=== PATIENT | female | born 1940 | race Caucasian/White ===

== ENCOUNTER 2020-04-22 18:04 | Observation (INO) | payer MEDICARE, SELFPAY ==
--- NOTE | 2020-04-22 | CT_ITS ---
EXAMINATION: CT ABDOMEN AND PELVIS WITHOUT CONTRAST CLINICAL INFORMATION: Back pain. COMPARISON: CT lumbar spine 02/01/2011, report only. TECHNIQUE: Multidetector volumetric imaging was performed from the superior aspect of the liver through the pubic symphysis. Sagittal and coronal reformatted images were obtained on the technologist's workstation. This CT examination was performed using dose optimization techniques as appropriate, variously including the following: *Automated exposure control *Adjustment of mA and/or kV according to patient size (this includes techniques or standardized protocols for targeted exams where dose is matched to indication/reason for exam; i.e. extremities or head) *Use of iterative reconstruction technique DLP: 856 mGy-cm FINDINGS: LUNG BASES: There is a suggestion of emphysematous changes at the lung bases. No lung masses, pleural effusions or infiltrates are seen. A right breast prosthesis is present. LIVER, GALLBLADDER, AND BILIARY TREE: Multiple liver masses are seen throughout the liver ranging in size from a few centimeters up to 6 cm (series 4 image 137). No bile duct dilatation is seen. The gallbladder is contracted but otherwise unremarkable with no evidence of radiopaque gallstones, gallbladder wall thickening, or obvious pericholecystic inflammatory changes. PANCREAS: Unremarkable. SPLEEN: Unremarkable. ADRENAL GLANDS: There is a 1.7 x 1.2 x 1.6 cm mass involving the left adrenal gland. The right adrenal gland appears mildly symmetrically thickened. KIDNEYS AND URETERS: The kidneys are normal in size, shape, and attenuation. A small 0.9 cm right lower pole cyst is present with a 7 mm posterior left mid cortical cyst present. No solid renal masses are seen. No hydronephrosis, hydroureter, or calculi seen. No perinephric stranding. BLADDER: Unremarkable. GASTROINTESTINAL TRACT: A small posterior gastric diverticulum is present with layering contrast measuring 2.5 cm. Extensive colonic diverticular changes are present without diverticulitis. The small and large bowel are otherwise unremarkable. The appendix is unremarkable. ABDOMINAL WALL: No significant hernia is appreciated. There is a small periumbilical hernia containing only fat. LYMPH NODES: No retroperitoneal lymphadenopathy. VASCULAR: Atherosclerotic changes are present but no aneurysm is seen. PELVIC VISCERA: An anteverted uterus is present. An abnormal pelvic mass or free fluid is not seen. OSSEOUS STRUCTURES: Generalized osteopenia is present with marked degenerative changes throughout the spine. There are multiple sclerotic lesions seen throughout the spine which are new since the report of 2010. A lytic lesion is present in S1. No pathologic fractures are seen. Sclerotic foci are noted in the ribs as well as in the right iliac bone and right ischium. All of these findings are suspicious for osseous metastatic disease. IMPRESSION: 1. Multiple liver masses worrisome for metastatic disease. 2. Left adrenal mass which could represent metastatic disease. 3. Multiple bone lesions highly suspicious for metastatic disease. This critical result was discussed with Dr. Paul Priest at 7:58 PM on the day the exam and it was ascertained that the content and urgency of the report was understood at the time of direct communication.
[2020-04-22 18:32] VITALS: BP 123/68; BP 130/90; PULSE 90; PULSE 95; RESP 20; TEMP 36.5; O2SAT 98; BMI 30.5
[2020-04-22] MEDS: oxyCODONE HCl Immed Release 5 MG TABLET PO (19:25)
[2020-04-22] MEDS: Ketorolac Tromethamine 30 MG/ML VIAL IM (19:30)
[2020-04-22 19:31] LABS: MANUAL DIFF FLAG NO
[2020-04-22] MEDS: Lidocaine 4 % Patch ADH..PATCH 1 PATCH TRANSDERMA (19:31)
[2020-04-22 19:36] LABS: Basophils Percent Auto 0.4 % (0-2); Eosinophils Absolute Auto 0.2 X10*3/uL (0.0-0.4); Eosinophils Percent Auto 2.9 % (0-4); Hematocrit 38.5 % (37-47); Hemoglobin 12.6 g/dl (12.0-16.0); Imm Gran Abs Auto 0.06 X10*3/uL (0.00-0.03); Imm Gran Pct Auto 0.7 % (0.0-0.4); Lymphocytes Absolute Auto 1.5 X10*3/uL (1.2-4.9); Lymphocytes Percent Auto 17.9 % (20-40); Mean Corpuscular HGB Conc 32.7 g/dl (31.0-35.0); Mean Corpuscular Hemoglobin 28.3 pg (27.0-33.0); Mean Corpuscular Volume 86.5 fL (80-98); Mean Platelet Volume 10.1 fL (9.4-12.3); Monocytes Absolute Auto 0.8 X10*3/uL (0.1-1.2); Neutrophils Absolute Auto 5.7 X10*3/uL (2.0-8.3); Neutrophils Percent Auto 68.1 % (45-73); Platelet Count 259 X10*3/uL (160-400); Red Blood Count 4.45 X10*6/uL (4.20-5.50); Red Cell Distribution Width 13.6 % (11.0-16.0); White Blood Count 8.4 X10*3/uL (4.8-10.8)
[2020-04-22 19:50] LABS: Glucose Urine UA NEG (NEG); Leukocyte Esterase Urine 1+ (NEG); Nitrite Urine POS (NEG); Urine Blood NEG (NEG); Urine Ketones NEG (NEG); Urine Protein NEG (NEG-TRACE)
[2020-04-22 19:52] LABS: Appearance Urine HAZY; Color Urine YELLOW
[2020-04-22 19:57] LABS: Bacteria Urine 2+ /LPF; RBC Urine 0 /HPF (0); Squamous Epithelial Cell Urine 1+ /LPF
[2020-04-22 19:58] LABS: Alanine Aminotransferase 19 U/L (0-31); Albumin Level 3.8 g/dL (3.5-5.0); Alkaline Phosphatase 137 U/L (39-117); Anion Gap 12 (12-20); Aspartate Amino Transferase 44 U/L (5-31); Bilirubin Direct 0.2 mg/dL (0.0-0.5); Bilirubin Total 0.5 mg/dL (0.0-1.0); Blood Urea Nitrogen 31 mg/dL (9-16); Calcium 9.3 mg/dL (8.4-10.2); Carbon Dioxide 27 mmol/L (22-29); Chloride 104 mmol/L (96-108); Creatinine Clr Calc Pharmacy 48.5; Estimated Glomerular Filt Rate 48; Glucose Random 95 mg/dL (60-115); Potassium 4.2 mmol/l (3.3-5.1); Sodium 139 mmol/L (135-145); Total Protein 7.1 g/dL (6.5-8.0)
[2020-04-22 20:53] VITALS: BP 144/65; PULSE 88; RESP 17; O2SAT 98
--- NOTE | 2020-04-22 20:59 | ED.BACK ---
HPI - Back Pain/Injury General Chief Complaint: Back Pain/Injury <Paul Priest NP - Last Filed: 04/22/20 21:34> Stated Complaint: lower back pain <Paul Priest NP - Last Filed: 04/22/20 21:34> Time Seen by Provider: 04/22/20 18:54 <Paul Priest NP - Last Filed: 04/22/20 21:34> Source: EMS <Paul Priest NP - Last Filed: 04/22/20 21:34> Mode of arrival: EMS <Paul Priest NP - Last Filed: 04/22/20 21:34> Limitations: no limitations <Paul Priest NP - Last Filed: 04/22/20 21:34> History of Present Illness HPI Narrative: this is a very pleasant 79-year-old female who is relatively independent comes from home via EMS she has a history of hypothyroidism, chronic back pain in the setting of spinal stenosis, recurrent diagnosis of breast cancer she subsequently underwent bilateral mastectomies and reconstructive surgery bilateral breast and she tells me that due to the spinal stenosis she has been dealing with on and off episodes of back pain for 30+ years for which has been well managed with intermittent course of muscle relaxants however for the past several days she has had back pain that is been worse and not improving with OTC therapy. States she is finding it for her to do any activities at home and today pain is much worse and cannot move. She denies any GI symptoms. No recent fall or injury. States little things as sneezing can sometimes throw her back off . <Paul Priest NP - Last Filed: 04/22/20 21:34> Pertinent past history: prior back pain <Paul Priest NP - Last Filed: 04/22/20 21:34> Severity: moderate <Paul Priest NP - Last Filed: 04/22/20 21:34> Similar Symptoms Previously: Yes <Paul Priest NP - Last Filed: 04/22/20 21:34> Associated symptoms: denies other symptoms <Paul Priest NP - Last Filed: 04/22/20 21:34> Related Data Home Medications: Home Medications Medication Instructions Recorded Confirmed cyclobenzaprine 1 tab PO BEDTIME PRN 04/22/20 04/22/20 levothyroxine 1 tab PO QAM 04/22/20 04/22/20 oxycodone 1 tab PO DAILY PRN 04/22/20 04/22/20 <Paul Priest NP - Last Filed: 04/22/20 21:34> Allergies/Adverse Reactions: Allergies Allergy/AdvReac Type Severity Reaction Status Date / Time codeine [CODEINE] Allergy Intermediate VOMITING Verified 04/22/20 19:18 Benadryl Allergy Unknown Unknown Uncoded 04/22/20 19:05 codeine Allergy Unknown vomiting Uncoded 10/10/18 00:00 Codeine Sulfate AdvReac Mild Vomiting Uncoded 04/22/20 19:07 <Paul Priest NP - Last Filed: 04/22/20 21:34> Review of Systems Review of Systems: Constitutional: No Weight loss, No Fever, No Chills, No Night Sweats, No Fatigue, No Malaise ENT/Mouth: No Hearing loss, No Ear Pain, No Nasal Congestion, No Sinus Pain, No Hoarseness, No sore throat, No Rhinorrhea, No Swallowing Difficulty Eyes: No Eye Pain, No Swelling, No Redness, No Foreign Body, No Discharge, No Vision Changes Cardiovascular: No Chest Pain, No SOB, No Dyspnea on Exertion, No Orthopnea, No Edema, No Palpitations Respiratory: No Cough, No Sputum, No Wheezing, No Smoke Exposure, No Dyspnea Gastrointestinal: No Nausea, No Vomiting, No Diarrhea, No Constipation, No abdominal Pain, No Hematochezia, No Melena Genitourinary: no irregular bleeding, No Dysuria, No Urinary Frequency, No Hematuria, No Urinary Incontinence, No Urgency, No Flank Pain, No Urinary Flow Changes, No Hesitancy Musculoskeletal: + low back pain No joint pain, No Myalgias, No Joint Swelling Skin: No Skin Lesions, No rash Neuro: No Weakness, No Numbness, No Paresthesias, No Loss of Consciousness, No Dizziness, No Headache Psych: No Anxiety/Panic, No Depression, No SI/HI/AH/VH, No Social Issues, Heme/Lymph: No Bruising, No Bleeding,No Lymphadenopathy Endocrine: No Polyuria, No Polydipsia, No Temperature Intolerance <Paul Priest NP - Last Filed: 04/22/20 21:34> Yes all other systems are reviewed and are negative <Paul Priest NP - Last Filed: 04/22/20 21:34> [facility] Past Medical History Attestation statement: The following information was validated with the patient. <Paul Priest NP - Last Filed: 04/22/20 21:34> Medical History: Medical History (Updated 04/22/20 @ 21:34 by Paul Priest NP) Breast cancer Hx of radiation therapy Sciatica <Paul Priest NP - Last Filed: 04/22/20 21:34> Surgical History: Surgical History (Updated 04/22/20 @ 18:44 by Cathi Wilson) H/O knee surgery H/O left mastectomy History of bilateral mastectomy History of hip surgery <Paul Priest NP - Last Filed: 04/22/20 21:34> Social History Social History: Social History Smoking Status: Never smoker Use of substances other than those prescribed or required for medical reasons: No Advance Directives: No Advance Directives Information Provided: No <Paul Priest NP - Last Filed: 04/22/20 21:34> Physical Exam Vital Signs and I&O and Narrative: Vital Signs and I&O: Vital Signs Temp 97.7 F 04/22/20 18:32 Pulse 88 04/22/20 20:53 Resp 17 04/22/20 20:53 BP 144/65 H 04/22/20 20:53 Pulse Ox 98 04/22/20 20:53 Intake & Output 04/22/20 04/22/20 04/23/20 06:59 18:59 06:59 Weight 88.451 kg Body Mass Index 30.5 <Paul Priest NP - Last Filed: 04/22/20 21:34> Vital Signs and I&O: Vital Signs Temp 97.7 F 04/22/20 18:32 Pulse 88 04/22/20 20:53 Resp 17 04/22/20 20:53 BP 144/65 H 04/22/20 20:53 Pulse Ox 98 04/22/20 20:53 Intake & Output 04/22/20 04/22/20 04/23/20 06:59 18:59 06:59 Weight 88.451 kg Body Mass Index 30.5 <Aquilino Osman DO - Last Filed: 10/08/20 23:04> Const: Other: Appears stated age <[facility] Priest, [facility] Last Filed: 04/22/20 21:34> General: cooperative and healthy appearing; No intoxicated appearing <[facility] Priest, [facility] Last Filed: 04/22/20 21:34> Nutritional Appearance: average body habitus <[facility] Priest, [facility] Last Filed: 04/22/20 21:34> Orientation/consciousness: patient oriented x3 [facility] Last Filed: 04/22/20 21:34> HENMT: Head: Yes normal to inspection <[facility] Priest, [facility] Last Filed: 04/22/20 21:34> Ears: hearing grossly normal bilaterally <[facility] Last Filed: 04/22/20 21:34> Eyes: General: appearance normal, both eyes and all related structures <[facility] Priest, [facility] Last Filed: 04/22/20 21:34> Visual John: normal visual john by confrontation <[facility] Zayda [facility] Last Filed: 04/22/20 21:34> Neck: Neck: Yes normal visual inspection, No positive Brudzinski's sign, No positive Kernig's sign and No tender <[facility] Zayda [facility] Last Filed: 04/22/20 21:34> Thyroid: Thyroid normal <[facility] Last Filed: 04/22/20 21:34> Chest: Chest palpation & inspection: normal inspection of the chest <[facility] Zayda [facility] Last Filed: 04/22/20 21:34> Resp: Effort & Inspection: normal respiratory effort <[facility] Zayda [facility] Last Filed: 04/22/20 21:34> Cardio: Jugular venous distension: no JVD <[facility] Zayda [facility] Last Filed: 04/22/20 21:34> GI: Inspection: Yes normal to inspection <[facility] Zayda [facility] Last Filed: 04/22/20 21:34> Percussion: Yes normal to percussion <[facility] Zayda [facility] Last Filed: 04/22/20 21:34> Auscultation: normal bowel sounds <[facility] Zayda [facility] Last Filed: 04/22/20 21:34> Skin: General skin exam: no rashes or lesions noted <Paullydia Priest NP - Last Filed: 04/22/20 21:34> Neuro: General: patient oriented x3 and Unable to assess gait <Paul Priest NP - Last Filed: 04/22/20 21:34> Gait exam (Neuro): Unable to assess gait <Paul Priest NP - Last Filed: 04/22/20 21:34> Extrem: Other: Negative Homans. Unable to examine for leg lift due to pain. <Paul Priest NP - Last Filed: 04/22/20 21:34> General: Yes normal to inspection <Paul Priest NP - Last Filed: 04/22/20 21:34> Course Course Course Narrative: provided moderate relief after oxycodone, IM Toradol and lidocaine patch. However still having significant pain with movement and unable to ambulate. Labs overall stable no leukocytosis UA incidental nitrate but she is asymptomatic at this time will defer treatment and pending culture. CT of the abdomen pelvis findings quite concerning for metastatic disease. She does have history of breast CA and her mother did have history of colon CA. She is resting comfortably but however with movement pain is unbearable for her. Given these findings case discussed with hospitalist for further management. <Paul Priest NP - Last Filed: 04/22/20 21:34> MDM - Back Pain/Injury Differential Diagnosis Differential diagnosis: Likely lumbar radiculopathy ( CA, fracture less likely), sciatica and strain of lumbar region; Unlikely renal colic, pyelonephritis, thoracic back pain, AAA and discitis <Paul Priest NP - Last Filed: 04/22/20 21:34> Medical Records Attestation: I reviewed the patient's medical records. <Paul Priest NP - Last Filed: 04/22/20 21:34> Lab Data Result diagrams: : 04/22/20 19:22 04/22/20 19:21 <Paul Priest NP - Last Filed: 04/22/20 21:34> Labs: Lab Results 04/22/20 04/22/20 04/22/20 Range/Units 19:21 19:22 19:44 WBC 8.4 (4.8-10.8) X10*3/uL RBC 4.45 (4.20-5.50) X10*6/uL Hgb 12.6 (12.0-16.0) g/dl Hct 38.5 (37-47) % MCV 86.5 (80-98) fL MCH 28.3 (27.0-33.0) pg MCHC 32.7 (31.0-35.0) g/dl RDW 13.6 (11.0-16.0) % Plt Count 259 (160-400) X10*3/uL MPV 10.1 (9.4-12.3) fL Immature Gran % (Auto) 0.7 H (0.0-0.4) % Neut % (Auto) 68.1 (45-73) % Lymph % (Auto) 17.9 L (20-40) % [place] % (Auto) 10.0 (2-11) % Eos % (Auto) 2.9 (0-4) % Baso % (Auto) 0.4 (0-2) % Lymph # (Auto) 1.5 (1.2-4.9) X10*3/uL [place] # (Auto) 0.8 (0.1-1.2) X10*3/uL Eos # (Auto) 0.2 (0.0-0.4) X10*3/uL Baso # (Auto) 0.0 (0.0-0.2) X10*3/uL Abs Immat Gran (auto) 0.06 H (0.00-0.03) X10*3/uL Absolute Neuts (auto) 5.7 (2.0-8.3) X10*3/uL Absolute Nucleated RBC 0.000 (0.0-0.012) X10*3/uL Nucleated RBC % (auto) 0.0 (0.0-0.2) /100WBC Sodium 139 (135-145) mmol/L Potassium 4.2 (3.3-5.1) mmol/l Chloride 104 (96-108) mmol/L Carbon Dioxide 27 (22-29) mmol/L Anion Gap 12 (12-20) BUN 31 H (9-16) mg/dL Creatinine 1.11 (0.5-1.4) mg/dL Estim Creat Clear Calc 48.5 Estimated GFR 48 Random Glucose 95 (60-115) mg/dL Calcium 9.3 (8.4-10.2) mg/dL Total Bilirubin 0.5 (0.0-1.0) mg/dL Direct Bilirubin 0.2 (0.0-0.5) mg/dL AST 44 H (5-31) U/L ALT 19 (0-31) U/L Alkaline Phosphatase 137 H (39-117) U/L Total Protein 7.1 (6.5-8.0) g/dL Albumin 3.8 (3.5-5.0) g/dL Urine Color YELLOW Urine Appearance HAZY Urine pH 6.0 (5.0-8.0) Ur Specific [place] 1.010 (1.005-1.025) Urine Protein NEG (NEG-TRACE) MG/DL Urine Glucose (UA) NEG (NEG) MG/DL Urine Ketones NEG (NEG) MG/DL Urine Blood NEG (NEG) Urine Nitrite POS H (NEG) Ur Leukocyte Esterase 1+ H (NEG) Urine RBC 0 (0) /HPF Urine WBC 5-9 H (0-4) /HPF Ur Squamous Epith Cells 1+ /LPF Urine Bacteria 2+ /LPF <Paul Priest [employer] - Last Filed: 04/22/20 21:34> Lab Results 04/22/20 04/22/20 04/22/20 Range/Units 19:21 19:22 19:44 WBC 8.4 (4.8-10.8) X10*3/uL RBC 4.45 (4.20-5.50) X10*6/uL Hgb 12.6 (12.0-16.0) g/dl Hct 38.5 (37-47) % MCV 86.5 (80-98) fL MCH 28.3 (27.0-33.0) pg MCHC 32.7 (31.0-35.0) g/dl RDW 13.6 (11.0-16.0) % Plt Count 259 (160-400) X10*3/uL MPV 10.1 (9.4-12.3) fL Immature Gran % (Auto) 0.7 H (0.0-0.4) % Neut % (Auto) 68.1 (45-73) % Lymph % (Auto) 17.9 L (20-40) % [place] % (Auto) 10.0 (2-11) % Eos % (Auto) 2.9 (0-4) % Baso % (Auto) 0.4 (0-2) % Lymph # (Auto) 1.5 (1.2-4.9) X10*3/uL [place] # (Auto) 0.8 (0.1-1.2) X10*3/uL Eos # (Auto) 0.2 (0.0-0.4) X10*3/uL Baso # (Auto) 0.0 (0.0-0.2) X10*3/uL Abs Immat Gran (auto) 0.06 H (0.00-0.03) X10*3/uL Absolute Neuts (auto) 5.7 (2.0-8.3) X10*3/uL Absolute Nucleated RBC 0.000 (0.0-0.012) X10*3/uL Nucleated RBC % (auto) 0.0 (0.0-0.2) /100WBC Sodium 139 (135-145) mmol/L Potassium 4.2 (3.3-5.1) mmol/l Chloride 104 (96-108) mmol/L Carbon Dioxide 27 (22-29) mmol/L Anion Gap 12 (12-20) BUN 31 H (9-16) mg/dL Creatinine 1.11 (0.5-1.4) mg/dL Estim Creat Clear Calc 48.5 Estimated GFR 48 Random Glucose 95 (60-115) mg/dL Calcium 9.3 (8.4-10.2) mg/dL Total Bilirubin 0.5 (0.0-1.0) mg/dL Direct Bilirubin 0.2 (0.0-0.5) mg/dL AST 44 H (5-31) U/L ALT 19 (0-31) U/L Alkaline Phosphatase 137 H (39-117) U/L Total Protein 7.1 (6.5-8.0) g/dL Albumin 3.8 (3.5-5.0) g/dL Urine Color YELLOW Urine Appearance HAZY Urine pH 6.0 (5.0-8.0) Ur Specific [place] 1.010 (1.005-1.025) Urine Protein NEG (NEG-TRACE) MG/DL Urine Glucose (UA) NEG (NEG) MG/DL Urine Ketones NEG (NEG) MG/DL Urine Blood NEG (NEG) Urine Nitrite POS H (NEG) Ur Leukocyte Esterase 1+ H (NEG) Urine RBC 0 (0) /HPF Urine WBC 5-9 H (0-4) /HPF Ur Squamous Epith Cells 1+ /LPF Urine Bacteria 2+ /LPF <Aquilino Osman, DO - Last Filed: 04/22/20 23:04> Imaging Data CT scan - abdomen: Radiologist's impression: [address] [address] [address] Scan Report Signed Patient: Susie Nixon [facility]#: [id number] : [id number] Age/Sex: 79 / FADM Date: 04/22/20 Loc: HO.ED Attending Dr: Ordering Physician: Paul Priest NP Date of Service: 04/22/20 Procedure(s): CT abdomen pelvis wo con Accession Number(s): [id number] cc: Paul Priest NP~ EXAMINATION: CT ABDOMEN AND PELVIS WITHOUT CONTRAST CLINICAL INFORMATION: Back pain. COMPARISON: CT lumbar spine 02/01/2011, report only. TECHNIQUE: Multidetector volumetric imaging was performed from the superior aspect of the liver through the pubic symphysis. Sagittal and coronal reformatted images were obtained on the technologist's workstation. This CT examination was performed using dose optimization techniques as appropriate, variously including the following: *Automated exposure control *Adjustment of mA and/or kV according to patient size (this includes techniques or standardized protocols for targeted exams where dose is matched to indication/reason for exam; i.e. extremities or head) *Use of iterative reconstruction technique DLP: 856 mGy-cm FINDINGS: LUNG BASES: There is a suggestion of emphysematous changes at the lung bases. No lung masses, pleural effusions or infiltrates are seen. A right breast prosthesis is present. LIVER, GALLBLADDER, AND BILIARY TREE: Multiple liver masses are seen throughout the liver ranging in size from a few centimeters up to 6 cm (series 4 image 137). No bile duct dilatation is seen. The gallbladder is contracted but otherwise unremarkable with no evidence of radiopaque gallstones, gallbladder wall thickening, or obvious pericholecystic inflammatory changes. PANCREAS: Unremarkable. SPLEEN: Unremarkable. ADRENAL GLANDS: There is a 1.7 x 1.2 x 1.6 cm mass involving the left adrenal gland. The right adrenal gland appears mildly symmetrically thickened. KIDNEYS AND URETERS: The kidneys are normal in size, shape, and attenuation. A small 0.9 cm right lower pole cyst is present with a 7 mm posterior left mid cortical cyst present. No solid renal masses are seen. No hydronephrosis, hydroureter, or calculi seen. No perinephric stranding. BLADDER: Unremarkable. GASTROINTESTINAL TRACT: A small posterior gastric diverticulum is present with layering contrast measuring 2.5 cm. Extensive colonic diverticular changes are present without diverticulitis. The small and large bowel are otherwise unremarkable. The appendix is unremarkable. ABDOMINAL WALL: No significant hernia is appreciated. There is a small periumbilical hernia containing only fat. LYMPH NODES: No retroperitoneal lymphadenopathy. VASCULAR: Atherosclerotic changes are present but no aneurysm is seen. PELVIC VISCERA: An anteverted uterus is present. An abnormal pelvic mass or free fluid is not seen. OSSEOUS STRUCTURES: Generalized osteopenia is present with marked degenerative changes throughout the spine. There are multiple sclerotic lesions seen throughout the spine which are new since the report of 2010. A lytic lesion is present in S1. No pathologic fractures are seen. Sclerotic foci are noted in the ribs as well as in the right iliac bone and right ischium. All of these findings are suspicious for osseous metastatic disease. IMPRESSION: 1. Multiple liver masses worrisome for metastatic disease. 2. Left adrenal mass which could represent metastatic disease. 3. Multiple bone lesions highly suspicious for metastatic disease. This critical result was discussed with Dr. Paul Priest at 7:58 PM on the day the exam and it was ascertained that the content and urgency of the report was understood at the time of direct communication. Dictated By:CHAGO FREGOSO MD Signed By:<Electronically signed by CHAGO FREGOSO MD in OV>04/22/202050 DD/ 14 TD/TT: Manager Of Production: ERICA <Paul Priest NP - Last Filed: 04/22/20 21:34> Discharge Plan Discharge Clinical Impression: Intractable back pain, Abnormal CT scan, pelvis Metastatic disease Qualifiers: Area of secondary neoplastic involvement: unspecified site Qualified Code(s): C79.9 - Secondary malignant neoplasm of unspecified site <Paul Priest NP - Last Filed: 04/22/20 21:34> Patient Disposition: Admitted As Inpatient <Paul Priest NP - Last Filed: 04/22/20 21:34>
--- NOTE | 2020-04-22 23:55 | PM.IMHP ---
History of Present Illness Date of Service: 04/22/20 Chief Complaint: Leg pain 79 y/o female who presented from home due to leg pain. Patient reports that has hx of sciatica and has occasional pain from the lower back radiating to the leg but in the recent days has noted worsening pain in the leg to the point that it has been even difficult to ambulate when has this type of pain. On presentation to the ED patient was found to hemodynamically stable, unremarkable labs except for mild elevation of AST 44 and UTi which is asymptomatic. Patient has a Hx of breast cancer in the past s/p lumpectomy of the left, radiation therapy, bilateral mastectomy and breast implantation, has been on remission of the breast cancer for the past 4 years since 2016. Had a bone scan with her oncologist which was negative. CT abdomen was done per ED and patient was found to have multiple lesions in liver, a mass in the left adrenal gland and multiple lytic lesions in the spine, hip and rib which are all concerning for metastatic disease. Primary etiology unknown at present. Decision for admission given. Patient seen and evaluated at the bedside, laying down in bed in no acute distress. ROS as above otherwise negative. No evidence of any neurologic deficit on examination, patient denies any pain at present. Denies any urinary incontinence or bowel incontinence. No back pain at present. PMHX: HTN, Hypothyroidism, Left sided breast cancer s/p lumpectomy, radiation therapy and bilateral mastectomy with implantation (on remission since 2016), Diverticulosis, anemia, Hemorrhoids PSx: as above Toxic habits: No hx of alcohol abuse, smoking or IVDA Review of Systems Musculoskeletal: Musculoskeletal: Reports other (Leg pain) [facility] Medical History Breast cancer Hx of radiation therapy Sciatica Functional capacity: independent ambulation Family history: reviewed and not pertinent Surgical History H/O knee surgery H/O left mastectomy History of bilateral mastectomy History of hip surgery Social History Smoking Status: Never smoker Use of substances other than those prescribed or required for medical reasons: No Advance Directives: No Advance Directives Information Provided: No Meds Allergies Allergy/AdvReac Type Severity Reaction Status Date / Time codeine [CODEINE] Allergy Intermediate VOMITING Verified 04/22/20 19:18 Benadryl Allergy Unknown Unknown Uncoded 04/22/20 19:05 codeine Allergy Unknown vomiting Uncoded 10/10/18 00:00 Codeine Sulfate AdvReac Mild Vomiting Uncoded 04/22/20 19:07 Home Medications Medication Instructions Recorded Confirmed Type cyclobenzaprine 1 tab PO BEDTIME PRN 04/22/20 04/22/20 History levothyroxine 1 tab PO QAM 04/22/20 04/22/20 History oxycodone 1 tab PO DAILY PRN 04/22/20 04/22/20 History Physical Exam Vital Signs and Narrative: Vital Signs: Last Vital Signs Temp 97.7 F 04/22/20 18:32 Pulse 88 04/22/20 20:53 Resp 17 04/22/20 20:53 BP 144/65 H 04/22/20 20:53 Pulse Ox 98 04/22/20 20:53 Body Mass Index 30.5 Const: General: cooperative, healthy appearing and comfortable Orientation/consciousness: patient oriented x3 HENMT: Head: Yes normal to inspection Eyes: General: appearance normal, both eyes and all related structures Neck: Yes normal visual inspection and Yes full ROM Chest: Chest palpation & inspection: normal inspection of the chest Resp: Effort & Inspection: normal respiratory effort and able to speak in complete sentences Cardio: Jugular venous distension: no JVD Rate: regular rate Heart sounds: S1 normal heart sound present and S2 normal heart sound present GI: Inspection: Yes normal to inspection Skin: General skin exam: no rashes or lesions noted Neuro: General: patient oriented x3 Motor exam (neuro): 5/5 motor strength present throughout Sensory Exam: other (no evidence of any sensory deficit ) Extrem: Left upper extremity: normal to inspection Psych: Appearance: grossly normal Results Labs Labs: Laboratory Tests 04/22/20 04/22/20 04/22/20 19:21 19:22 19:44 WBC 8.4 RBC 4.45 Hgb 12.6 Hct 38.5 MCV 86.5 MCH 28.3 MCHC 32.7 RDW 13.6 Plt Count 259 MPV 10.1 Immature Gran % (Auto) 0.7 H Neut % (Auto) 68.1 Lymph % (Auto) 17.9 L Ray % (Auto) 10.0 Eos % (Auto) 2.9 Baso % (Auto) 0.4 Lymph # (Auto) 1.5 Ray # (Auto) 0.8 Eos # (Auto) 0.2 Baso # (Auto) 0.0 Abs Immat Gran (auto) 0.06 H Absolute Neuts (auto) 5.7 Absolute Nucleated RBC 0.000 Nucleated RBC % (auto) 0.0 Sodium 139 Potassium 4.2 Chloride 104 Carbon Dioxide 27 Anion Gap 12 BUN 31 H Creatinine 1.11 Estim Creat Clear Calc 48.5 Estimated GFR 48 Random Glucose 95 Calcium 9.3 Total Bilirubin 0.5 Direct Bilirubin 0.2 AST 44 H ALT 19 Alkaline Phosphatase 137 H Total Protein 7.1 Albumin 3.8 Urine Color YELLOW Urine Appearance HAZY Urine pH 6.0 Ur Specific [place] 1.010 Urine Protein NEG Urine Glucose (UA) NEG Urine Ketones NEG Urine Blood NEG Urine Nitrite POS H Ur Leukocyte Esterase 1+ H Urine RBC 0 Urine WBC 5-9 H Ur Squamous Epith Cells 1+ Urine Bacteria 2+ Assessment and Plan (1) Metastatic disease: Qualifiers: Area of secondary neoplastic involvement: unspecified site Qualified Code(s): C79.9 - Secondary malignant neoplasm of unspecified site Status: Acute Findings as described in HPI Follow up [facility] Follow up CA-[address] head / Chest for staging with/without contrast Follow up with Hematology Oncology in the am Observation (2) Hypertension: Status: Acute stable not on meds (3) Hypothyroidism: Status: Acute continue with levothyroxine home dose (4) Neuropathy: Status: Acute Continue with cyclobenzaprine (muscle relaxant) as of now
[2020-04-23] VITALS (12 sets, daily range): BP systolic 119–157; BP diastolic 57–78; PULSE 70–91; RESP 16–20; TEMP 36.4–36.9; O2SAT 97–99; BMI 30.5
--- NOTE | 2020-04-23 | US_ITS ---
EXAMINATION: ULTRASOUND-GUIDED LIVER BIOPSY CLINICAL INFORMATION: Liver lesions. History of breast cancer. COMPARISON: Previous CT of the abdomen and pelvis 04/22/2020 TECHNIQUE: Procedure and risks and benefits including bleeding and infection were discussed with the patient and informed consent was obtained. The upper midline abdomen was prepped and draped in the usual sterile fashion. The skin and soft tissues were anesthetized with 1% lidocaine plain. Using ultrasound guidance and a coaxial system, access to a hypoechoic lesion in the left lobe of the liver was obtained. 4 22-gauge FNA specimens were obtained. There is no complication. Patient received Versed 1 mg and fentanyl 50 mcg intravenously during the procedure. Total sedation time was 15 minutes. FINDINGS: There is a lobulated hypoechoic lesion in the left lobe of the liver that was targeted for biopsy. Measures 6.9 x 4 x 5 cm. IMPRESSION: Ultrasound-guided liver biopsy.
--- NOTE | 2020-04-23 00:08 | PC.NURSE ---
attempted to give report. rn unavaible.
[2020-04-23] MEDS: 0.9 % Sodium Chloride Flush 3 ML SYRINGE IVFLUSH ×3 (01:15→16:26)
[2020-04-23] MEDS: Heparin Sodium,Porcine 5,000 UNIT/ML VIAL 5000 UNIT SUBCUT (01:29)
[2020-04-23] MEDS: Levothyroxine Sodium 150 MCG TABLET PO (05:29)
--- NOTE | 2020-04-23 06:00 | CT_ITS ---
EXAMINATION: CT HEAD WITH/WITHOUT CONTRAST CLINICAL INFORMATION: History of breast cancer. Metastases. Staging. COMPARISON: None. TECHNIQUE: Contiguous axial imaging was performed from the skull base to vertex before and after the administration of 85 mL of Omnipaque 350 intravenous contrast. Coronal and sagittal reformatted images were generated at the technologist workstation. This CT examination was performed using dose optimization techniques as appropriate, variously including the following: *Automated exposure control *Adjustment of mA and/or kV according to patient size (this includes techniques or standardized protocols for targeted exams where dose is matched to indication/reason for exam; i.e. extremities or head) *Use of iterative reconstruction technique DLP: 1358 mGy-cm total including CT chest. FINDINGS: There is no evidence of acute intracranial hemorrhage or territorial infarction. No abnormal mass effect or midline shift is seen. Valentine to white matter differentiation is well preserved. No extra-axial fluid collections are identified. An area of enhancement in the blake is most consistent with a capillary telangiectasia. No other abnormal enhancement is demonstrated. The ventricles and sulci are commensurately prominent consistent with diffuse volume loss. There are scattered areas of low-attenuation in the periventricular and subcortical white matter and in the blake consistent with chronic microvascular ischemic changes. There are also lacunar infarcts in the bilateral basal ganglia. The osseous structures and soft tissues are normal. There have been bilateral lens extractions. The mastoid air cells and visualized portions of the paranasal sinuses are well aerated. IMPRESSION: 1. There are no acute bleeds or territorial infarcts. No masses or areas of concerning abnormal enhancement are demonstrated. 2. There are chronic microvascular ischemic changes and there is diffuse volume loss and lacunar infarcts.
--- NOTE | 2020-04-23 06:00 | CT_ITS ---
EXAMINATION: CT CHEST WITH CONTRAST CLINICAL INFORMATION: History breast cancer. Multiple liver masses suspicious for metastatic disease. Staging. COMPARISON: CT abdomen and pelvis 04/22/2020 TECHNIQUE: Multidetector volumetric CT imaging of the chest was obtained after the administration of 85 mL of Omnipaque 350 intravenous contrast without immediate adverse reactions. Axial MIP volume rendering provided. Sagittal and coronal reformatted images were obtained. This CT examination was performed using dose optimization techniques as appropriate, variously including the following: *Automated exposure control *Adjustment of mA and/or kV according to patient size (this includes techniques or standardized protocols for targeted exams where dose is matched to indication/reason for exam; i.e. extremities or head) *Use of iterative reconstruction technique DLP: 164 mGy-cm FINDINGS: LUNGS: Left lung has a suspicious irregular mass abutting the distal posterior lateral aortic arch with overall size approximately 1.7 x 1.2 x 1.9 cm. There is scarring versus irregular mass involving the lower oblique fissure 1.1 cm, and focal fissural thickening posterior apex 1.2 x 0.6 cm. There is punctate nodule anterior left upper lobe series 8/115 and fissural-based nodule under 5 mm series 8/188 likely intraparenchymal node. Subpleural scarring and traction bronchiectasis is present anterior left upper lobe. The right lung has 6 mm pleural-based nodule posterior upper lobe series 8/120, fissural-based nodule under 4 mm series 8/193, pleural-based nodule under 5 mm series 8/297 and 4 mm pleural-based nodule posterior medial lower lobe series 8/358. The central airways are clear. MEDIASTINUM: No hilar or mediastinal adenopathy. Thoracic aorta shows no aneurysmal enlargement. No pericardial effusion. PLEURA: There is no pleural effusion. No pleural mass or thickening. AXILLA: No axillary lymphadenopathy. Right chest implant or tissue direct marketing manager 6 x 14 cm UPPER ABDOMEN: Subtle lesions liver as noted on recent CT imaging. Left adrenal nodule. OSSEOUS STRUCTURES: Scattered sclerotic metastases thoracic spine. Mottled attenuation sternum. Old ununited fracture upper sternum, 1.6 cm from sternomanubrial junction. IMPRESSION: 1. Scattered sclerotic metastases thoracic spine. Pathologic fracture, possibly chronic, upper sternal body. 2. Scattered bilateral nodularity, largest medial left upper lobe abutting the aortic arch measuring 1.7 x 1.2 x 1.9 cm. 3. No hilar or mediastinal adenopathy or ascites.
[2020-04-23 06:41] LABS: MANUAL DIFF FLAG NO
[2020-04-23 07:03] LABS: Basophils Percent Auto 0.5 % (0-2); Eosinophils Absolute Auto 0.3 X10*3/uL (0.0-0.4); Eosinophils Percent Auto 4.6 % (0-4); Hematocrit 36.8 % (37-47); Hemoglobin 11.8 g/dl (12.0-16.0); Imm Gran Abs Auto 0.07 X10*3/uL (0.00-0.03); Imm Gran Pct Auto 1.1 % (0.0-0.4); Lymphocytes Absolute Auto 1.3 X10*3/uL (1.2-4.9); Lymphocytes Percent Auto 20.3 % (20-40); Mean Corpuscular HGB Conc 32.1 g/dl (31.0-35.0); Mean Corpuscular Hemoglobin 28.2 pg (27.0-33.0); Mean Platelet Volume 10.6 fL (9.4-12.3); Monocytes Absolute Auto 0.6 X10*3/uL (0.1-1.2); Monocytes Percent Auto 9.5 % (2-11); Neutrophils Absolute Auto 4.2 X10*3/uL (2.0-8.3); Platelet Count 229 X10*3/uL (160-400); Red Blood Count 4.18 X10*6/uL (4.20-5.50); Red Cell Distribution Width 13.7 % (11.0-16.0); White Blood Count 6.6 X10*3/uL (4.8-10.8)
[2020-04-23 07:32] LABS: Anion Gap 13 (12-20); Blood Urea Nitrogen 34 mg/dL (9-16); Calcium 8.8 mg/dL (8.4-10.2); Carbon Dioxide 23 mmol/L (22-29); Chloride 105 mmol/L (96-108); Creatinine Clr Calc Pharmacy 48.9; Estimated Glomerular Filt Rate 48; Glucose Random 90 mg/dL (60-115); Potassium 4.4 mmol/l (3.3-5.1); Sodium 137 mmol/L (135-145)
--- NOTE | 2020-04-23 08:50 | P.CNHO_ITS ---
Subjective - Subjective Chief complaint: Back pain, history of right leg sciatica Patient: new to practice Consult date: 04/23/20 Primary Care Provider: Mert Stone MD HPI - Consult Narrative Reason for consult: Probable metastatic breast cancer Narrative: Susie Nixon is a 79 year old female admitted to [facility] with complaints of back pain, imaging revealed multiple liver lesions and bone lesions worrisome for metastasis. Evaluation in the emergency department revealed elevation in liver function tests which prompted imaging of the abdomen. CT abdomen revealed multiple liver lesions largest measuring 6 cm worrisome for metastasis. There was a mass in the left adrenal gland and multiple sclerotic lesions including a lytic lesion in S1 vertebra which was concerning for bone metastasis. Patient has been admitted for further evaluation. At this time she says that her pain is well controlled. She does understand that she has these findings and is willing for biopsy for confirmation. she denies abdominal pain, nausea or emesis. No loss of weight. She was treated for sciatica by her PCP in the recent weeks. She denies focal weakness, numbness or tingling. No history of any heart problems, no chest pain palpitations or dizziness. No cough or shortness of breath. No fever or chills. Review of Systems - Constitutional Reports as per HPI, Reports no additional constitutional complaints - Cardiovascular Denies no additional cardiovascular complaints - Respiratory Denies no additional respiratory complaints - Gastrointestinal Denies no additional gastrointestinal complaints, Denies abdominal pain - Musculoskeletal Reports as per HPI, Reports back pain - Neurologic Denies no additional neurologic complaints Oncology Screenings - ECOG Performance Status ECOG Performance Status: 2 [facility] Medical History: Medical History (Last Updated 04/23/20 @ 00:08 by Isa Barnes MD) Breast cancer Hx of radiation therapy Sciatica Functional capacity: independent ambulation Family History: Family History (Last Updated 04/23/20 @ 08:55 by Daisy Romano MD) Mother Colon cancer Family history: reviewed and not pertinent Surgical History: Surgical History (Last Reviewed 04/23/20 @ 00:06 by Isa Barnes MD) H/O knee surgery H/O left mastectomy History of bilateral mastectomy History of hip surgery Smoking status: Never smoker Home Medications and Allergies Current Medications: Current Medications Generic Name Dose Route Start Last Admin Trade Name Freq PRN Reason Stop Dose Admin Cyclobenzaprine HCl 10 mg 04/22/20 23:51 Cyclobenzaprine Hcl 10 Mg Tablet PO BEDTIME PRN Back Pain Heparin Sodium (Porcine) 5,000 unit 04/23/20 00:52 04/23/20 01:29 Heparin Sodium,Porcine 5,000 Unit/Ml Vial SUBCUT 5,000 unit Q8H TRISHA Administration Levothyroxine Sodium 150 mcg 04/23/20 06:00 04/23/20 05:29 Levothyroxine Sodium 150 Mcg Tablet PO 150 mcg 0600 [facility] Administration Oxycodone HCl 5 mg 04/22/20 23:51 Oxycodone Hcl Immed Release 5 Mg Tablet PO DAILY PRN Back Pain Pharmacy Consult 1 each 04/22/20 22:15 Consult Rx Perform Med Rec MISCELLANE ONCE PRN Consult order Sodium Chloride 3 ml 04/23/20 00:52 04/23/20 07:35 0.9 % Sodium Chloride Flush 3 Ml Syringe IVFLUSH 3 ml QSHIFT [facility] Administration Home Medications Medication Instructions Recorded Confirmed Type cyclobenzaprine 1 tab PO BEDTIME PRN 04/22/20 04/22/20 History levothyroxine 1 tab PO QAM 04/22/20 04/22/20 History oxycodone 1 tab PO DAILY PRN 04/22/20 04/22/20 History Allergies Allergy/AdvReac Type Severity Reaction Status Date / Time codeine [CODEINE] Allergy Intermediate VOMITING Verified 04/22/20 19:18 Benadryl Allergy Unknown Unknown Uncoded 04/22/20 19:05 codeine Allergy Unknown vomiting Uncoded 10/10/18 00:00 Codeine Sulfate AdvReac Mild Vomiting Uncoded 04/22/20 19:07 Physical Exam Vital signs: Vital Signs Temp 98.5 F 04/23/20 08:00 Pulse 78 04/23/20 08:00 Resp 18 04/23/20 08:00 BP 150/78 H 04/23/20 08:00 Pulse Ox 98 04/23/20 08:00 Intake & Output 04/22/20 04/23/20 04/23/20 18:59 06:59 18:59 Intake Total 120 / 120 Output Total 80 / 80 350 / 350 Balance 40 / 40 -350 / -350 Urine Output (Average ml/kg/hr) 0.08 0.33 Intake: Intake, Oral Amount 120 / 120 Output: Output, Urine Amount 80 / 80 350 / 350 Other: Number of Unmeasured Voids 1 Urine Bedside Commode Bathroom Urine Color Yellow Yellow Weight 88.451 kg Weight 88.451 kg - Constitutional Present: no acute distress - Routine HEENT Exam Head: Present: normal inspection Eye: Present: EOMI - Routine Neck Exam Absent: lymphadenopathy - Routine Chest/Breast/Axilla Exam Breast: Present: left mastectomy. Absent: tenderness, mass, erythema Comments: right mastectomy site with reconstruction/implant. - Routine Respiratory Exam Present: CTAB - Routine Cardiovascular Exam Cardiovascular: Present: S1, S2 - Routine Abdominal Exam Present: normal bowel sounds, soft. Absent: organomegaly - Routine Extremities Exam Absent: calf tenderness - Routine Neurological Exam Present: oriented X3. Absent: motor deficit Hem/Onc Consult Result - Labs CBC & Chem 7: 04/23/20 05:51 04/23/20 05:51 Labs: Short CBC 04/22/20 04/23/20 Range/Units 19:22 05:51 WBC 8.4 6.6 (4.8-10.8) X10*3/uL Hgb 12.6 11.8 L (12.0-16.0) g/dl Hct 38.5 36.8 L (37-47) % Plt Count 259 229 (160-400) X10*3/uL BMP 04/22/20 04/23/20 19:21 05:51 Sodium 139 137 Potassium 4.2 4.4 Chloride 104 105 Carbon Dioxide 27 23 BUN 31 H 34 H Creatinine 1.11 1.10 Calcium 9.3 8.8 Liver Function 04/22/20 Range/Units 19:21 Total Bilirubin 0.5 (0.0-1.0) mg/dL Direct Bilirubin 0.2 (0.0-0.5) mg/dL AST 44 H (5-31) U/L ALT 19 (0-31) U/L Alkaline Phosphatase 137 H (39-117) U/L Albumin 3.8 (3.5-5.0) g/dL Urine 04/22/20 Range/Units 19:44 Urine Color YELLOW Urine Appearance HAZY Urine pH 6.0 (5.0-8.0) Ur Specific [place] 1.010 (1.005-1.025) Urine Protein NEG (NEG-TRACE) MG/DL Urine Glucose (UA) NEG (NEG) MG/DL - Imaging CT scan - abdomen Radiologist's impression: 1. Multiple liver masses worrisome for metastatic disease. 2. Left adrenal mass which could represent metastatic disease. 3. Multiple bone lesions highly suspicious for metastatic disease. Assessment and Plan (1) Breast cancer Status: Acute This is a 79-year-old woman with history of left breast cancer initially diagnosed in 2011, ER/ND positive HER-2/lois positive stage pT1c pN0. Her treatment in 2011 consisted of lumpectomy followed by radiation therapy She refused hormonal therapy and chemotherapy. Subsequently recurred in 2015. She underwent bilateral mastectomies in 2017. She went to [facility] for adjuvant chemotherapy, according to her, she received 1 cycle and had bad side effects including alopecia which caused her to stop further treatments. She has had bilateral breast implants but the left 1 had to be taken out because of complications. Unfortunately, she now presents with back pain which is likely related to bone metastasis although she does have longstanding history of sciatica. I discussed imaging findings with patient, she was explained that this most likely is metastatic breast cancer. We will need a biopsy/ tissue diagnosis for confirmation. I will speak to intervention radiologist, liver biopsy by IR will be arranged if possible. I thank you very much for this referral, further recommendations to follow. All her questions were answered to her satisfaction.
[2020-04-23] MEDS: 0.9 % Sodium Chloride 500 ML 80 ML IV ×3 (09:33→23:34)
[2020-04-23 09:37] LABS: Lactate Dehydrogenase 445 U/L (122-220)
[2020-04-23 10:10] LABS: INTERNATIONAL NORM RATIO 1.1 (0.9-1.1); Prothrombin Time 13.1 SEC (10.8-13.0)
--- NOTE | 2020-04-23 11:32 | MHC.CM.PN ---
CM met with patient at the bedside who reports she is independent and lives alone. Completed HCP and placed a copy on chart. Discussed discharge plan, home no services. Friend will be able to provide transportation. CM will continue to follow patient for discharge needs.
[2020-04-23] MEDS: iohexoL 350 MG/ML 100 ML INFUS..BTL IV (15:55)
--- NOTE | 2020-04-23 15:58 | PM.EVENT ---
Event Note Event Note: Ultrasound guided liver biopsy performed, left lobe. 4 20 g core biospies obtained . No complications
[2020-04-23] MEDS: Cyclobenzaprine HCl 10 MG TABLET PO (17:50)
--- NOTE | 2020-04-23 18:48 | PM.EVENT ---
Event Note Event Note: patient already seen by hospitalist service this morning - we have seen the patient again- patient was admitted due to leg cramps which seems to be improved, upon admission the imaging studies showed metastatic disease. physio: cvs: rrr, [id number] , no murmur res: clear to auscultation ,no rhonchii or wheezing abd: no rebound or guarding ,nt, bs present. ext pulses present , no cyanosis neuro: axo3 , nonfocal. plan: Please see H&P note in addition patient going for liver biopsy for eval metastatic disease. leg cramps it resolved, denies any pain right now. to continue IV gentle hydration CT head and chest was done and reviewed by oncology. , plan is above liver biopsy.
[2020-04-23] MEDS: oxyCODONE HCl Immed Release 5 MG TABLET PO (21:20)
[2020-04-23] MEDS: LORazepam 2 MG/ML VIAL 0.5 MG IVPUSH (23:33)
[2020-04-24] MEDS: 0.9 % Sodium Chloride Flush 3 ML SYRINGE IVFLUSH ×2 (02:13→06:44)
[2020-04-24] MEDS: Levothyroxine Sodium 150 MCG TABLET PO (06:42)
[2020-04-24 08:00] VITALS: BP 127/57; PULSE 95; RESP 20; TEMP 36.4; O2SAT 96
[2020-04-24 10:00] VITALS: BP 129/73; PULSE 84; RESP 20; O2SAT 96
[2020-04-24] MEDS: polyethylene glycoL 3350 17 GM POWD.PACK PO (10:48)
[2020-04-24] MEDS: oxyCODONE HCl Immed Release 5 MG TABLET 10 MG PO (10:48)
[2020-04-24 11:17] LABS: Hematocrit 37.1 % (37-47)
--- NOTE | 2020-04-24 13:47 | MHC.CM.PN ---
Per MD discussion, Patient will be medically cleared for dc to home today, with [facility]. Per Patient's choice, a referral has been made to [facility]. Patient is aware of and in agreement with the dc plan.
[2020-04-24 14:54] VITALS: BP 120/69; PULSE 80; RESP 20; O2SAT 95
--- NOTE | 2020-04-24 15:53 | W.MHC.F2F ---
Service Date Service Date: 04/24/20 Encounter Date of encounter: 04/24/20 Encounter: his leg pain, metastatic disease . Reasons for Services MD overseeing care: Mert Stone MD Homebound: Leaving the home is medically contraindicated at this time without the asist of a device and/or another person due th the listed conditions above and below. Certification: Based on the above findings, I certify that this patient is confined to the home and needs intermittent long-term care, physical therapy and/or speech therapy, or continues to need occupational therapy. The patient is under my care, and I have initiated the establishment of the plan of care. The patient will be followed by a physician who will periodically review the plan of care.
--- NOTE | 2020-04-24 15:56 | P.DS_ITS ---
DS: Providers Provider Date of admission: 04/22/20 23:54 Primary care physician: Mert Stone MD Consults: 04/23/20 00:52 Consult to Physician Routine Consulting Provider: [facility] [place] Oncology/Hematology Reason for consultation: Liver mets/Adrenal gland meds. Hx of Breast cancer in the past Has provider been notified: No DS: Diagnosis Discharge Diagnosis (1) Breast cancer: Status: Acute (2) Intractable back pain: Status: Acute (3) Metastatic disease: Status: Acute (4) Abnormal CT scan, pelvis: Status: Acute DS: Summary Hospital Course Hospital Course: HPI:79 y/o female who presented from home due to leg pain. Patient reports that has hx of sciatica and has occasional pain from the lower back radiating to the leg but in the recent days has noted worsening pain in the leg to the point that it has been even difficult to ambulate when has this type of pain. On presentation to the ED patient was found to hemodynamically stable, unremarkable labs except for mild elevation of AST 44 and UTi which is asymptomatic. Patient has a Hx of breast cancer in the past s/p lumpectomy of the left, radiation therapy, bilateral mastectomy and breast implantation, has been on remission of the breast cancer for the past 4 years since 2016. Had a bone scan with her oncologist which was negative. CT abdomen was done per ED and patient was found to have multiple lesions in liver, a mass in the left adrenal gland and multiple lytic lesions in the spine, hip and rib which are all concerning for metastatic disease. Primary etiology unknown at present. Decision for admission given. Patient seen and evaluated at the bedside, laying down in bed in no acute distress. ROS as above otherwise negative. No evidence of any neurologic deficit on examination, patient denies any pain at present. Denies any urinary incontinence or bowel incontinence. No back pain at present. Hospital course problem inman: metastatic disease: 79-year-old woman with history of left breast cancer initially diagnosed in 2011, ER/MA positive HER-2/lois positive stage pT1c pN0. Her treatment in 2011 consisted of lumpectomy followed by radiation therapy She refused hormonal therapy and chemotherapy. Subsequently recurred in 2016. She underwent bilateral mastectomies in 2017. She went to [facility] for adjuvant chemotherapy, according to her, she received 1 cycle and had bad side effects including alopecia which caused her to stop further treatments. She has had bilateral breast implants but the left 1 had to be taken out because of complications. Unfortunately, she now presents with back pain which is likely related to bone metastasis although she does have longstanding history of sciatica. oncology discussed imaging findings with patient, she was explained that this most likely is metastatic breast cancer. We will need a biopsy/ tissue diagnosis for confirmation. in addition CEA, CA 19-9, ca 27-29 was sent and pending. Also has mild elevation in LFTs. patient came with question of leg cramps - which improved spontaneously but above upon initial abdominal CT scan showed metastatic disease to the spine, liver, adrenal ( please see imaging section for further information): is discussed with the Oncology and also neurology: patient might need radiation therapy spine: during this admission liver biopsy done to confirm diagnosis 1st and then radiation therapy will be planned subsequently. Patient pain is controlled and could able to do even PT and given pain management inman oxycodone and she has cyclobenzaprine at home in addition oncology recommended to add dexamethasone- patient needs to follow-up with Dr. Romano Oncology next week and further management as per Oncology. Patient also has mild elevation in LFTs Probably related to underlying metastatic to liver which she needs repeat Lft's outpatient with PCP and further management as per PCP. Time Spent with Patient Time attestation: Total time spent providing and/or coordinating discharge services: 45 min Physical Exam Vital Signs: Vital Signs: Vital Signs Temp Pulse Resp BP Pulse Ox 04/24/20 14:54 80 20 120/69 95 04/24/20 10:00 84 20 129/73 96 04/24/20 08:00 97.6 F 95 20 127/57 L 96 04/23/20 23:15 98.5 F 70 20 132/59 L 97 04/23/20 20:13 98 F 83 97 04/23/20 18:27 98.2 F 87 20 126/70 97 04/23/20 18:00 98.2 F 91 20 126/70 98 04/23/20 17:00 97.8 F 78 16 127/71 98 04/23/20 16:24 98.2 F 78 20 157/78 H 99 Body Mass Index 30.5 DS: Data Data Completed and Pending Pending studies at discharge: Pending at discharge 04/23/20 16:01 Surgical [PTH] Routine Labs on day of discharge: Labs from last 24 hours 04/24/20 04/23/20 11:06 05:51 Hgb 12.0 Hct 37.1 CA 19-9 Antigen Pending CA 27-[address] abd : LUNG BASES: There is a suggestion of emphysematous changes at the lung bases. No lung masses, pleural effusions or infiltrates are seen. A right breast prosthesis is present. LIVER, GALLBLADDER, AND BILIARY TREE: Multiple liver masses are seen throughout the liver ranging in size from a few centimeters up to 6 cm (series 4 image 137). No bile duct dilatation is seen. The gallbladder is contracted but otherwise unremarkable with no evidence of radiopaque gallstones, gallbladder wall thickening, or obvious pericholecystic inflammatory changes. PANCREAS: Unremarkable. SPLEEN: Unremarkable. ADRENAL GLANDS: There is a 1.7 x 1.2 x 1.6 cm mass involving the left adrenal gland. The right adrenal gland appears mildly symmetrically thickened. KIDNEYS AND URETERS: The kidneys are normal in size, shape, and attenuation. A small 0.9 cm right lower pole cyst is present with a 7 mm posterior left mid cortical cyst present. No solid renal masses are seen. No hydronephrosis, hydroureter, or calculi seen. No perinephric stranding. BLADDER: Unremarkable. GASTROINTESTINAL TRACT: A small posterior gastric diverticulum is present with layering contrast measuring 2.5 cm. Extensive colonic diverticular changes are present without diverticulitis. The small and large bowel are otherwise unremarkable. The appendix is unremarkable. ABDOMINAL WALL: No significant hernia is appreciated. There is a small periumbilical hernia containing only fat. LYMPH NODES: No retroperitoneal lymphadenopathy. VASCULAR: Atherosclerotic changes are present but no aneurysm is seen. PELVIC VISCERA: An anteverted uterus is present. An abnormal pelvic mass or free fluid is not seen. OSSEOUS STRUCTURES: Generalized osteopenia is present with marked degenerative changes throughout the spine. There are multiple sclerotic lesions seen throughout the spine which are new since the report of 2010. A lytic lesion is present in S1. No pathologic fractures are seen. Sclerotic foci are noted in the ribs as well as in the right iliac bone and right ischium. All of these findings are suspicious for osseous metastatic disease. IMPRESSION: 1. Multiple liver masses worrisome for metastatic disease. 2. Left adrenal mass which could represent metastatic disease. 3. Multiple bone lesions highly suspicious for metastatic disease. ct chest: LUNGS: Left lung has a suspicious irregular mass abutting the distal posterior lateral aortic arch with overall size approximately 1.7 x 1.2 x 1.9 cm. There is scarring versus irregular mass involving the lower oblique fissure 1.1 cm, and focal fissural thickening posterior apex 1.2 x 0.6 cm. There is punctate nodule anterior left upper lobe series 8/115 and fissural-based nodule under 5 mm series 8/188 likely intraparenchymal node. Subpleural scarring and traction bronchiectasis is present anterior left upper lobe. The right lung has 6 mm pleural-based nodule posterior upper lobe series 8/120, fissural-based nodule under 4 mm series 8/193, pleural-based nodule under 5 mm series 8/297 and 4 mm pleural-based nodule posterior medial lower lobe series 8/358. The central airways are clear. MEDIASTINUM: No hilar or mediastinal adenopathy. Thoracic aorta shows no aneurysmal enlargement. No pericardial effusion. PLEURA: There is no pleural effusion. No pleural mass or thickening. AXILLA: No axillary lymphadenopathy. Right chest implant or tissue storekeeper steward 6 x 14 cm UPPER ABDOMEN: Subtle lesions liver as noted on recent CT imaging. Left adrenal nodule. OSSEOUS STRUCTURES: Scattered sclerotic metastases thoracic spine. Mottled attenuation sternum. Old ununited fracture upper sternum, 1.6 cm from sternomanubrial junction. IMPRESSION: 1. Scattered sclerotic metastases thoracic spine. Pathologic fracture, possibly chronic, upper sternal body. 2. Scattered bilateral nodularity, largest medial left upper lobe abutting the aortic arch measuring 1.7 x 1.2 x 1.9 cm. 3. No hilar or mediastinal adenopathy or ascites. Discharge Plan Discharge Patient Disposition: Home Health Service Referrals: [facility] [Outside] Mert Stone MD [Primary Care Provider] - Discharge Medications: New polyethylene glycol 3350 17 gram Powder In Packet 17 g PO BID Qty: 100 RF: 0 oxycodone 5 mg capsule 5 mg PO BID PRN (Reason: pain) Qty: 10 RF: 0 docusate sodium [Colace] 100 mg capsule 100 mg PO DAILY Qty: 90 RF: 0 dexamethasone 4 mg tablet 4 mg PO BID Qty: 14 RF: 0 Continued cyclobenzaprine 10 mg tablet 1 tab PO BEDTIME PRN (Reason: Back Pain) RF: 0 levothyroxine 150 mcg tablet 1 tab PO QAM RF: 0 oxycodone 5 mg tablet 1 tab PO DAILY PRN (Reason: Back Pain) RF: 0 Discharge Orders: Discharge Order (Routine); Ordered 04/24/20 Ordered By: Rayna August Diet: advance to your usual diet Activity on Discharge: As tolerated Visit Report Forms: Patient Portal Discharge page Care Plan Goals: patient came with question of leg cramps - which improved spontaneously but above upon initial abdominal CT scan showed metastatic disease to the spine, liver: is discussed with the Oncology and also neurology: patient might need radiation therapy spine: during this admission liver biopsy done to confirm diagnosis 1st and then radiation therapy will be planned subsequently. Patient pain is controlled and could able to do even PT and given pain management inman oxycodone and she has cyclobenzaprine at home in addition oncology recommended to add dexamethasone- patient needs to follow-up with Dr. Romano Oncology next week and further management as per Oncology. Patient also has mild elevation in LFTs Probably related to underlying metastatic to liver which she needs to follow up outpatient with PCP and further management as per PCP. Health Concerns: As above. Plan of Treatment: As above.
--- NOTE | 2020-04-26 11:30 | HO.PICC ---
PICC Line Insertion NPICC Diagnosis: [] Indication: [] Pertinent Labs: [] Technique: Following informed consent including risks, benefits and alternatives and using sterile technique including cap and mask, sterile gown, glove and drape, the [] arm was prepped and draped in the usual sterile fashion of full barrier technique with G. Following completion of [place] Protocol the skin and soft tissues were anesthetized with 1% Lidocaine plain. Using ultrasound guidance, [] vein access was obtained. Over an 0.018 wire through peel-away sheath, a [] PICC line was positioned. Catheter length is [] internal length, [] external length, for a total trimmed length of []. The procedure was performed in []. Tip verification was performed by Rosie Romero with Nilesh 3CG. Tip located in SVC. Ultrasound was used to document vein patency and for needle entry. A formal ultrasound picture and cardiac rhythm strip was recorded. Vascular Materials Management Manager has released the line for use and it is currently dressed with a StatLock, Tegaderm, and CHG disc. Verification has been performed for blood return and line patency. Arm Circumference: [] Equipment: [] Catheter Type: [] Lot #: []
[2020-04-26 11:33] LABS: CA 27.29 301 U/mL (<38); Carbohydrate Antigen 19-9 52 U/mL (<34)
== END 2020-04-24 05:20 | disposition home health service (06) ==
LOC: HO.ED 21:34 → HO.IMC 04-23 00:02
PROVIDERS: Internal Medicine; Nurse Practitioner Primary Care; Admitting Provider Internal Medicine; Emergency Provider Emergency Medicine; PCP Internal Medicine; Visit Provider Internal Medicine
DX: C79.51 Secondary malignant neoplasm of bone (principal); C78.7 Secondary malignant neoplasm of liver and intrahepatic bile duct; M54.9 Dorsalgia, unspecified; M54.30 Sciatica, unspecified side; E27.9 Disorder of adrenal gland, unspecified; E03.9 Hypothyroidism, unspecified; D64.9 Anemia, unspecified; K57.90 Diverticulosis of intestine, part unspecified, without perforation or abscess without bleeding; K64.9 Unspecified hemorrhoids; I10 Essential (primary) hypertension; G62.9 Polyneuropathy, unspecified; R94.5 Abnormal results of liver function studies; Z85.3 Personal history of malignant neoplasm of breast; Z17.0 Estrogen receptor positive status [ER+]; Z92.3 Personal history of irradiation; Z90.13 Acquired absence of bilateral breasts and nipples; Z42.1 Encounter for breast reconstruction following mastectomy; Z88.6 Allergy status to analgesic agent; Z88.8 Allergy status to other drugs, medicaments and biological substances; Z79.899 Other long term (current) drug therapy
CPT/HCPCS: 36415; 47000; 70470; 71260; 74176; 76942; 80048; 80076; 81001; 82378; 83615; 85014; 85018; 85025; 85610; 86300; 86301; 88307; 88313; 88333; 88341; 88342; 88360; 96361; 96372; 96374; 97162; 99219; 99285; J1885; J2060

== ENCOUNTER 2020-04-30 10:16 | Outpatient (RCR) | payer MEDICARE, SELFPAY ==
[2020-04-30 10:50] VITALS: BP 146/75; PULSE 102; RESP 18; TEMP 36.3; O2SAT 97; BMI 31.0
--- NOTE | 2020-04-30 10:54 | PM.HEMONCPN ---
Medical Summary - Medical Summary Chief complaint: Right hip and low back pain Medical Summary: Metastatic breast cancer, ER positive HER2 Lois positive diagnosed in April 2020. History of left breast cancer initially diagnosed in 2011, ER/DE positive HER-2/lois positive stage pT1c pN0. Her treatment in 2011 consisted of lumpectomy followed by radiation therapy She refused hormonal therapy and chemotherapy. Subsequently recurred in 2015. She underwent bilateral mastectomies in 2016. She went to [facility] for adjuvant chemotherapy, according to her, she received 1 cycle and had bad side effects including alopecia which caused her to stop further treatments. She has had bilateral breast implants but the left 1 had to be taken out because of complications. April 2020, admitted to [facility] [place] with complaints of back pain, imaging revealed multiple liver lesions and bone lesions worrisome for metastasis. Interval History Interval history: Patient is here accompanied by her sister today. She is doing okay but does report pain in her low back and right hip. She understands that she does have stage IV breast cancer and it is now involving liver and multiple bone lesions. She is very concerned about side effects of chemotherapy. She recall receiving a few doses of Herceptin in 2017. However, it was the chemotherapy that she did not tolerate. She does not recall having an echocardiogram previously. She is taking dexamethasone in the last few days and it has helped her back pain somewhat. She is willing to undergo treatment if that will prolong her life. Review of Systems - Constitutional Reports fatigue, Reports malaise - Cardiovascular Denies no additional cardiovascular complaints - Respiratory Denies no additional respiratory complaints - Gastrointestinal Denies abdominal pain, Denies black, tarry stools, Reports constipation - Musculoskeletal Reports as per HPI, Reports back pain, Reports body aches, Denies joint swelling - Neurologic Reports radicular pain, Denies tingling PMFSH Medical History: Medical History (Last Updated 04/23/20 @ 00:08 by Isa Barnes MD) Breast cancer Hx of radiation therapy Sciatica Family History: Family History (Last Updated 04/23/20 @ 08:55 by Daisy Romano MD) Mother Colon cancer Surgical History: Surgical History (Last Updated 04/30/20 @ 10:35 by Katy Bonds RN) H/O knee surgery H/O left mastectomy History of bilateral mastectomy History of hip surgery History of left knee replacement Onset Date: ~09/2011 History of lumpectomy of left breast Onset Date: ~02/2012 Home Medications and Allergies Home Medications Medication Instructions Recorded Confirmed Type cyclobenzaprine 1 tab PO BEDTIME PRN 04/22/20 04/30/20 History levothyroxine 1 tab PO QAM 04/22/20 04/30/20 History oxycodone 1 tab PO DAILY PRN 04/22/20 04/30/20 History Allergies Allergy/AdvReac Type Severity Reaction Status Date / Time codeine [CODEINE] Allergy Intermediate VOMITING Verified 04/22/20 19:18 Benadryl Allergy Unknown Unknown Uncoded 04/22/20 19:05 codeine Allergy Unknown vomiting Uncoded 10/10/18 00:00 Codeine Sulfate AdvReac Mild Vomiting Uncoded 04/22/20 19:07 Exam Vital signs: Vital Signs Temp 97.4 F 04/30/20 10:50 Pulse 102 H 04/30/20 10:50 Resp 18 04/30/20 10:50 BP 146/75 H 04/30/20 10:50 Pulse Ox 97 04/30/20 10:50 Progress Note: A/P (1) Metastatic breast cancer Status: Acute Assessment and plan: 1. This is a 79-year-old woman diagnosed with recurrent, metastatic breast cancer in April 2020. She presented with back/hip pain and further workup with imaging, revealed the following. CT abdomen/pelvis performed 04/22/2020- 1. Multiple liver masses worrisome for metastatic disease. 2. Left adrenal mass which could represent metastatic disease. 3. Multiple bone lesions highly suspicious for metastatic disease. CT chest performed 04/23/2020 revealed- 1. Scattered sclerotic metastases thoracic spine. Pathologic fracture, possibly chronic, upper sternal body. 2. Scattered bilateral nodularity, largest medial left upper lobe abutting the aortic arch measuring 1.7 x 1.2 x 1.9 cm. 3. No hilar or mediastinal adenopathy or ascites. Liver, biopsy: Moderate to poorly differentiated carcinoma consistent with metastasis from patient's known primary breast carcinoma. Estrogen Receptor: Positive (strong intensity; 100% of tumor cells) Progesterone Receptor: Positive (variable weak/moderate intensity; 15% of tumor cells) HER2: Positive (3+) I discussed all of the above findings with patient and her sister. Lung mass with smaller subcentimeter pulmonary nodules are probably also metastatic rather than primary lung cancer. I have recommended a PET-CT which is being scheduled. I discussed treatment with chemotherapy and HER2 directed therapy. Patient would like to defer chemotherapy because of side effects. She is being started on Arimidex 1 mg p.o. daily and HER2 directed therapy with trastuzumab. We discussed possible side effects of treatment including cardiotoxicity, arthralgias and cytopenias. Echocardiogram has been ordered. For her bone metastasis she will be started on denosumab 120 mg subcu monthly. She is being referred to Radiation Oncology for palliative radiation to S1 and perhaps her right iliac bone lesion. Her daughter is her healthcare proxy. Patient verbalized understanding and all her questions were answered. Over 30 minutes spent discussing all of the above with patient and sister. Follow-up in 2 weeks. - Time Spent With Patient Total time spent is greater than 50% in coordination of care (as documented) at patient's floor/unit and/or counseling patient: Greater than 35 minutes
--- NOTE | 2020-04-30 14:23 | MHC.HEMONCSW ---
RADHA REQUEST FOR PET SCAN WENT TO [facility] CASE# [id number]. WAIT DECISION.
--- NOTE | 2020-04-30 14:52 | MHC.HEMONCSW ---
PT IS A 76 Y.O. FEMALE, INDEPENDENT. DIAGNOSIS IS METASTATIC BREAST CANCER TO LIVER AND BONE, FIRST TRATED FOR BREAST CANCER IN 2011. INITIALLY SURPRISED BY DIAGNOSIS BUT THEN FELT BETTER AFTER RECEIVING EDUCATION. NO SERVICES. RELIES ON HORTENSIA AND FAMILY FOR STRENGTH AND SUPPORT. PET SCAN AND CHEMOTHERAPY TO BEGIN IN NEAR FUTURE. EDUCATION, RESOURCES, GUIDANCE AND SUPPORT PROVIDED.
--- NOTE | 2020-04-30 16:32 | MHC.HEMONC ---
ONC Consult completed, patient seen in house by Dr. Romano. Patient accompanied by sister. Plan for ECHO/PET SCAN- hormonal replacement with Anastrozole daily and Herceptin Q21 weeks. Chemo education completed. Patient verbalizes understanding. F/u in 2 weeks. ECHO order left with Elva and PET scan order given to Ne.
--- NOTE | 2020-05-03 09:52 | MHC.HEMONCSW ---
PT C/O OF NOT BEING ABLE TO PAY FOR MEDICATIONS SHE DOES NOT HAVE PRESCRIPTION COVERAGE. DISCUSSED [place] ELIGIBILITY REQUIREMENTS. APPEARS SHE IS ELIGIBLE. ADVISED HER TO FILL SCRIPT BUT ATIYA CALL [facility] [facility] COUNSEL[facility] TOR PEREZ TO COMPLETE A [place] APPLICATION. SHE VERBALIZED UNDERSTANDING.
--- NOTE | 2020-05-03 12:16 | MHC.HEMONCSW ---
[facility] PET SCAN MARILOU AM. S[phone] IS [facility].
--- NOTE | 2020-05-07 11:11 | MHC.HEMONCSW ---
PT SCHEDULED FOR SUNDAY AT [facility] PET SCAN. SHE NEEDS TRANSPORTATION. PHONED, SPOKE WITH SOHAIL AT [facility], SHE WILL CALL E BACK WITH THE TIME. ....THEN I CAN GIVE PT A TAXI VOUCHER.
--- NOTE | 2020-05-07 13:33 | MHC.HEMONCSW ---
KENNY AUTHORIZED THE FOLLOWING... [facility] AND [facility] XGEVA AUTH # [id number] RANGE OF SERVICE; 05/10/20 TO 05/09/21 [facility]IN AUTH# [id number] RANGE OF SERVICE; 05/10/20 TO 11/05/20 TRACKING NUMBER FOR THIS INFORMATION IS [id number].
--- NOTE | 2020-05-10 15:15 | MHC.HEMONCSW ---
PT TO HAVE PET AT [facility] [facility] TOMORROW. PHONED, SPOKE WITH PT. DAUGHTER WASHING HER UP. PCP ORDERED A COMMODE AND WHEELCHAIR FOR HER AND SHE IS DECLINING. HER SISTER IS TRANSPORTING HER TO PET SCAN SO TRANSPORT NOT NEEDED.
--- NOTE | 2020-06-01 16:11 | MHC.HEMONC ---
Pt. called for refill request on her Oxycodone 5mg capsules. Dr. Romano wrote script and pt's grandson Bryan Vivas came and picked up the Rx. He signed the Rx *copy* and this was filed by Elva Aj in paper file. Of note, the pt. states she finished day 6 of 10 of her radition treatment, but had to cancel today d/t some mild diarrhea. She is awaiting the [facility] radiation department to call her back to reschedule her for her next treatment. Victoria Baldwin completed item
== END 2020-06-13 | disposition home or self-care (01) ==
LOC: HO.ONC 10:16
PROVIDERS: PCP Internal Medicine; Visit Provider Internal Medicine
DX: C50.912 Malignant neoplasm of unspecified site of left female breast (principal); Z17.0 Estrogen receptor positive status [ER+]; C79.51 Secondary malignant neoplasm of bone; C78.7 Secondary malignant neoplasm of liver and intrahepatic bile duct; M25.551 Pain in right hip; M54.5 Low back pain; Z90.13 Acquired absence of bilateral breasts and nipples; Z92.3 Personal history of irradiation
CPT/HCPCS: 99215

== ENCOUNTER 2020-05-11 11:41 | Outpatient (REF) | payer MEDICARE, SELFPAY ==
--- NOTE | 2020-05-11 08:41 | PE_ITS ---
EXAMINATION: Fluorine-18 FDG PET/CT Scan CLINICAL INDICATION: Subsequent treatment management. Metastatic breast cancer, restaging. PROCEDURE: 66 minutes following the intravenous administration of 14.2 mCi of fluorine 18 FDG, images from the base of the skull to the mid thighs were obtained using a combined PET/CT scanner with CT scan based attenuation correction. No oral contrast was administered. No intravenous contrast was administered. Transverse, coronal, sagittal, and volume reconstruction projections were obtained. The patient's blood glucose as determined by a finger stick, was 75 mg/dl immediately prior to injection. Total CT exam dose-length product 706.68 mGy-cm COMPARISON: No previous PET/CT scan is available for comparison. CT scan of the chest dated 04/23/[address] scan of the abdomen and pelvis dated 04/22/2020 are available for comparison. FINDINGS: (Slice numbers described in this report are numbered superiorly to inferiorly with slice #1 in the head) NECK AND VISUALIZED HEAD: There is a small focus of mildly increased FDG activity without a definite CT correlate there is likely within the deep lobe of the right parotid gland. This shows SUV Max 3.8, slice 23/267. There is a subcentimeter FDG avid right cervical level 3 lymph node showing SUV Max 6.6, slice 41/267. No additional foci of abnormal FDG activity are present in the neck or visualized head. All the other activity in this region appears physiological. THORAX: Osseous lesions are discussed subsequently. There is a 1.1 cm FDG avid left upper lobe pulmonary nodule, SUV Max 3.4. No definite additional FDG avid pulmonary nodules are visualized. A few subcentimeter pulmonary nodules below the resolution of the FDG PET images are visualized, such as in the lingula a 0.9 cm nodule, slice 89/267 and a posterior pleural-based right upper lobe 0.5 cm nodule, slice 61/267. These are unchanged and better visualized on the recent 04/23/[address] scan of the chest. No additional foci of abnormal FDG activity are present in the chest. There is no mediastinal, axillary, or supraclavicular lymphadenopathy. There is no pleural or pericardial fluid, or pneumothorax. A right breast prosthesis is present in the patient is status post left mastectomy. Multiple metallic clips are present in the left axilla with no associated abnormal FDG activity. ABDOMEN AND PELVIS: Several intensely FDG avid CT hypodense liver lesions are present. The largest measures 7.4 x 3.5 cm in largest transverse dimensions an approximately 5.2 cm cephalocaudad involving liver Couinaud segments 8 and 5 showing SUV Max 16.2, slice 112/267. An additional lesion is present in liver Couinaud segment 7 showing SUV Max 9.5, slice 125/267. This is not well delineated on these nondiagnostic CT images or the 04/22/[address] scan. An additional FDG avid lesion is visualized high in liver Couinaud segment 4a and corresponds to a hypodensity on the 04/22/2020 CT scan measuring 2.5 cm in diameter. An intensely FDG avid lesion which likely represents a periportal or portacaval lymph node is present showing SUV Max 14.0, slice 120/267. An FDG avid aortocaval retroperitoneal lymph node measuring 1.8 x 1.3 cm in largest transverse dimensions shows SUV Max 14.7, slice 143/267, at the L4 level. A hypodense left adrenal nodule shows markedly diminished FDG activity and measures fluid density, Hounsfield units 8 measuring 2.5 x 1.7 cm. There is a focus of intense FDG activity present in the presacral rectosigmoid colon showing SUV Max 26th 0.2, slice 198/[address] correlate. There is otherwise FDG activity of mild intensity throughout the gastrointestinal tract which is likely physiological. There is diffuse diverticulosis without evidence of diverticulitis. A small fat-containing periumbilical hernia is present. MUSCULOSKELETAL: Extensive FDG avid osseous metastases are present. These involve portions of almost all the visualized bones, most prominently in the spine, pelvis, proximal femurs and proximal humeri. There is also prominent abnormality in the inferior third of the sternum. Wafer Slicer is a predominantly lytic lesion in the L4 vertebral body showing SUV Max 9.5, slice 155/267 and extensive abnormalities involving the posterior iliac bones bilaterally and the sacral ala bilaterally showing SUV Max in the right sacral ala of 9.9, slice 181/267. VASCULAR: Vascular calcifications including coronary are noted. PET/PET CT fusion whole body IMPRESSION: Widespread FDG avid metastatic malignant disease is noted. Extensive FDG avid osseous and liver metastases are present as well as some FDG avid lymphadenopathy as described above. There is also an intensely FDG avid lesion in the rectosigmoid colon without definite CT correlate but strongly suspicious nonetheless for a malignant lesion. The latter could be further characterized with colonoscopy or MRI of the pelvis performed without and with intravenous contrast, if clinically indicated. A few FDG avid pulmonary nodules are also present as described above, also likely metastatic disease.
== END 2020-05-11 11:42 | disposition home or self-care (01) ==
LOC: HO.PET 11:41
PROVIDERS: Visit Provider Internal Medicine
DX: C50.919 Malignant neoplasm of unspecified site of unspecified female breast (principal)

== ENCOUNTER 2020-05-17 11:20 | Inpatient (IN) | payer MEDICARE, SELFPAY ==
[2020-05-17] VITALS (7 sets, daily range): BP systolic 109–131; BP diastolic 57–105; PULSE 85–120; RESP 17–22; TEMP 36.5–37.2; O2SAT 96–99; BMI 29.3
--- NOTE | 2020-05-17 11:45 | US_ITS ---
EXAMINATION: US VENOUS ULTRASOUND WITH DOPPLER LOWER EXTREMITY, BILATERAL CLINICAL INFORMATION: Bilateral lower extremity swelling. COMPARISON: None TECHNIQUE: Ultrasound of the deep veins is performed from the hip to the calf with compression sonography and color and pulse Doppler assessment. Spectral analysis with color-flow imaging is performed. FINDINGS: RIGHT: There is normal venous compression and respiratory variation and augmented flow. The visualized common femoral vein, superficial femoral vein, profunda femoral vein, popliteal vein, and the trifurcation region shows no evidence of deep venous thrombosis. There is no significant popliteal fossa cyst. There is moderate edema in the calf. LEFT: There is normal venous compression and respiratory variation and augmented flow. The visualized common femoral vein, superficial femoral vein, profunda femoral vein, popliteal vein, and the trifurcation region shows no evidence of deep venous thrombosis. There is no significant popliteal fossa cyst. There is moderate edema in the calf region. There is a small lymph node visualized in the groin measuring 1.4 x 1.1 x 1.0 cm. US/US venous duplex LE BI IMPRESSION: No DVT demonstrated in the bilateral lower extremity. Bilateral pitting edema in the calf. Small lymph node in the left groin with thick wall.
--- NOTE | 2020-05-17 11:54 | ED_ITS ---
HPI - General Adult General Chief complaint: General Medical <Maureen David NP - Last Filed: 05/17/20 17:04> Stated complaint: NEIL LEG PAIN/SWELLING RECENT DX BONE CA <Maureen David NP - Last Filed: 05/17/20 17:04> Time Seen by Provider: 05/17/20 11:44 <Maureen David NP - Last Filed: 05/17/20 17:04> Source: EMS <Maureen David NP - Last Filed: 05/17/20 17:04> Limitations: no limitations <Maureen David NP - Last Filed: 05/17/20 17:04> History of Present Illness HPI narrative: 79-year-old female with a past medical history of breast cancer 2012 s/p lumpectomy/radiation, reoccurrence in 2016 s/p mastectomy/chemotherapy, sciatica, currently being worked up for liver mass, 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 patient tells me she is supposed to start palliative radiation on 05/23 at [facility]. She has an upcoming appointmentwith Dr. Romano who is her primary oncologist to discuss additional treatment options. She is not currently undergoing any chemotherapy. The patient tells me for the last 2 days she has had bilateral lower extremity swelling. She denies any redness, warmth, fevers, chills, shortness of breath or chest pain or cough. The patient tells me she has had lower extremity swelling in the past and this has improved with compression stockings. Unfortunately she has not been using compression stockings and the last few days she has had a lot of pain and swelling in her legs making ambulation very difficult. She also has chronic back pain and is taking oxycodone 5 mg home but has had increased pain with ambulation and is telling me she is concerned about being home alone. <Maureen David NP - Last Filed: 05/17/20 17:04> Onset (ago): day(s) <Maureen David NP - Last Filed: 05/17/20 17:04> Location: lower extremity <Maureen David NP - Last Filed: 05/17/20 17:04> Radiation: non-radiation <Maureen David NP - Last Filed: 05/17/20 17:04> Severity: mild <Maureen David NP - Last Filed: 05/17/20 17:04> Relieving factors: none <Maureen David NP - Last Filed: 05/17/20 17:04> Exacerbating factors: none <Maureen David NP - Last Filed: 05/17/20 17:04> Associated symptoms: denies other symptoms <Maureen David NP - Last Filed: 05/17/20 17:04> Treatments prior to arrival: none <Maureen David NP - Last Filed: 05/17/20 17:04> Related Data Home medications: Home Medications Medication Instructions Recorded Confirmed cyclobenzaprine 1 tab PO BEDTIME PRN 04/22/20 05/17/20 levothyroxine 1 tab PO QAM 04/22/20 05/17/20 cholecalciferol (vitamin D3) 125 mcg PO DAILY 05/17/20 05/17/20 [Vitamin D3] Previous Rx's Medication Instructions Recorded docusate sodium [Colace] 100 mg PO DAILY #90 cap 04/24/20 polyethylene glycol 3350 17 g PO BID #100 ea 04/24/20 anastrozole 1 mg PO DAILY #30 tab 04/30/20 dexamethasone [Decadron] 4 mg PO BID #60 tab 04/30/20 oxycodone 5 mg PO Q6H PRN #60 cap 05/03/20 miscellaneous medical supply #1 ea 05/11/20 walker #1 ea 05/11/20 miscellaneous medical supply #1 ea 05/12/20 walker #1 ea 05/12/20 walker #1 ea 05/12/20 <Maureen David NP - Last Filed: 05/17/20 17:04> Allergies/adverse reactions: Allergies Allergy/AdvReac Type Severity Reaction Status Date / Time codeine [CODEINE] Allergy Intermediate VOMITING Verified 05/17/20 11:29 Benadryl Allergy Unknown Unknown Uncoded 04/22/20 19:05 codeine Allergy Unknown vomiting Uncoded 10/10/18 00:00 Codeine Sulfate AdvReac Mild Vomiting Uncoded 04/22/20 19:07 <Maureen David NP - Last Filed: 05/17/20 17:04> Review of Systems Review of Systems: Yes all other systems are reviewed and are negative <Maureen David NP - Last Filed: 05/17/20 17:04> Constitutional: Constitutional: Reports no additional constitutional complaints, Denies body ache(s), Denies chills, Denies fever(s), Denies headache(s) and Denies weakness <Maureen David NP - Last Filed: 05/17/20 17:04> Eyes: Eyes: Reports no additional eye complaints and Denies change in vision <Maureen David NP - Last Filed: 05/17/20 17:04> ENT: Reports system reviewed and no additional complaints, except as documented, Denies dizziness, Denies headache(s), Denies nasal congestion, Denies nasal discharge and Denies neck pain <Maureen David NP - Last Filed: 05/17/20 17:04> Cardiovascular: Cardiovascular: Reports no additional cardiovascular complaints, Denies chest pain, Reports leg edema and Denies dyspnea <Maureen David NP - Last Filed: 05/17/20 17:04> Respiratory: Respiratory: Reports no additional respiratory complaints, Denies cough and Denies dyspnea <Maureen David NP - Last Filed: 05/17/20 17:04> Gastrointestinal: Gastrointestinal: Reports no additional gastrointestinal complaints, Denies abdominal pain, Denies diarrhea, Denies nausea and Denies vomiting <Maureen David NP - Last Filed: 05/17/20 17:04> Genitourinary: Genitourinary: Reports no additional female genitourinary complaints and Denies urinary incontinence <Maureen David NP - Last Filed: 05/17/20 17:04> Musculoskeletal: Musculoskeletal: Reports no additional musculoskeletal com plaints, Reports back pain, Denies arthralgias, Denies joint swelling, Denies neck pain, Denies numbness and Denies tingling <Maureen David NP - Last Filed: 05/17/20 17:04> Integumentary/Breasts: Skin/Breast: Reports system reviewed and no additional complaints, except as docu and Denies rash <Maureen David NP - Last Filed: 05/17/20 17:04> Neurologic: Reports system reviewed and no additional complaints, except as documented, Denies Abnormal speech present, Denies dizziness, Denies headache(s), Denies numbness, Denies tingling and Denies weakness <Maureen David NP - Last Filed: 05/17/20 17:04> [facility] Past Medical History Attestation statement: The following information was validated with the patient. <Maureen David NP - Last Filed: 05/17/20 17:04> Source: obtained from family and nursing notes reviewed <Maureen David NP - Last Filed: 05/17/20 17:04> Medical History: Medical History Breast cancer Hx of radiation therapy Hypertension Hypothyroidism Liver cancer Neuropathy Sciatica <Maureen David NP - Last Filed: 05/17/20 17:04> Surgical History: Surgical History H/O knee surgery H/O left mastectomy History of bilateral mastectomy History of hip surgery History of left knee replacement (~09/2011) History of lumpectomy of left breast (~02/2012) <Maureen David NP - Last Filed: 05/17/20 17:04> Family History Family History: Family History Mother Colon cancer <Maureen David NP - Last Filed: 05/17/20 17:04> Social History Social History: Social History Alcohol intake: never Smoking Status: Never smoker Smoked in Last 30 Days: No Use of substances other than those prescribed or required for medical reasons: No Advance Directives: No Advance Directives Information Provided: Yes service: No Current occupational status: retired <Maureen David NP - Last Filed: 05/17/20 17:04> Physical Exam Vital Signs: Vital Signs: Vital Signs Temp Pulse Resp BP Pulse Ox 05/18/20 06:00 97.8 F 96 15 128/85 93 05/18/20 02:36 16 05/17/20 23:49 981 F H 91 17 109/57 L 99 05/17/20 21:33 98.2 F 91 22 H 121/74 97 05/17/20 20:00 88 18 125/77 96 05/17/20 16:00 85 18 126/78 96 05/17/20 15:56 95 18 126/78 96 05/17/20 14:00 97.7 F 105 H 18 126/75 96 05/17/20 11:29 99.0 F 109 H 18 126/103 H Body Mass Index 29.3 <Maureen David NP - Last Filed: 05/17/20 17:04> Vital Signs: Vital Signs Temp Pulse Resp BP Pulse Ox 05/18/20 06:00 97.8 F 96 15 128/85 93 05/18/20 02:36 16 05/17/20 23:49 981 F H 91 17 109/57 L 99 05/17/20 21:33 98.2 F 91 22 H 121/74 97 05/17/20 20:00 88 18 125/77 96 05/17/20 16:00 85 18 126/78 96 05/17/20 15:56 95 18 126/78 96 05/17/20 14:00 97.7 F 105 H 18 126/75 96 05/17/20 11:29 99.0 F 109 H 18 126/103 H Body Mass Index 29.3 <Poonam Choudhury DO - Last Filed: 05/18/20 06:38> Const: Other: Very anxious <Maureen David NP - Last Filed: 05/17/20 17:04> General: cooperative and healthy appearing <Maureen David NP - Last Filed: 05/17/20 17:04> Orientation/consciousness: patient oriented x3 <Maureen David NP - Last Filed: 05/17/20 17:04> Limitations: no limitations <Maureen David NP - Last Filed: 05/17/20 17:04> HENMT: Head: Yes normal to inspection <Maureen David NP - Last Filed: 05/17/20 17:04> Ears: hearing grossly normal bilaterally <Maureen David NP - Last Filed: 05/17/20 17:04> General nose exam: Normal external nose present <Maureen David NP - Last Filed: 05/17/20 17:04> Face and sinus: Yes normal facial exam <Maureen David NP - Last Filed: 05/17/20 17:04> Mouth: Normal oral and palatal mucosa present <Maureen David NP - Last Filed: 05/17/20 17:04> Throat: Yes posterior oropharynx normal <Maureen David NP - Last Filed: 05/17/20 17:04> Eyes: General: appearance normal, both eyes and all related structures <Maureen David NP - Last Filed: 05/17/20 17:04> Pupils: Equal, round and reactive pupils present <Maureen David NP - Last Filed: 05/17/20 17:04> Neck: Neck: Yes normal visual inspection <Maureen David NP - Last Filed: 05/17/20 17:04> Chest: Chest palpation & inspection: normal inspection of the chest <Maureen David NP - Last Filed: 05/17/20 17:04> Resp: Effort & Inspection: normal respiratory effort <Maureen David NP - Last Filed: 05/17/20 17:04> Auscultation: clear to auscultation bilaterally <Maureen David NP - Last Filed: 05/17/20 17:04> Cardio: Rate: regular rate <Maureen David NP - Last Filed: 05/17/20 17:04> Rhythm: regular rhythm <Maureen David NP - Last Filed: 05/17/20 17:04> Peripheral pulses: Peripheral pulses 2+ throughout <Maureen David NP - Last Filed: 05/17/20 17:04> GI: Inspection: Yes normal to inspection <Maureen David NP - Last Filed: 05/17/20 17:04> Palpation (GI): Soft to palpation and nontender <Maureen David NP - Last Filed: 05/17/20 17:04> Auscultation: normal bowel sounds <Maureen David NP - Last Filed: 05/17/20 17:04> Back/Spine/Pelvis: Thoracic/Lumbar Spine: thoracic and lumbar spine normal to inspection <Maureen David NP - Last Filed: 05/17/20 17:04> Skin: General skin exam: no rashes or lesions noted <Maureen David NP - Last Filed: 05/17/20 17:04> Neuro: General: patient oriented x3, no focal motor deficits and normal sensation to monofilament <Maureen David NP - Last Filed: 05/17/20 17:04> Cranial nerves: Yes Equal, round and reactive pupils present <Maureen David NP - Last Filed: 05/17/20 17:04> Cognition (Neuro): normal cognition <Maureen David NP - Last Filed: 05/17/20 17:04> Speech: No Abnormal speech present <Maureen David NP - Last Filed: 05/17/20 17:04> Gait exam (Neuro): Normal gait present <Maureen David NP - Last Filed: 05/17/20 17:04> Motor exam (neuro): 5/5 motor strength present throughout <Maureen David NP - Last Filed: 05/17/20 17:04> Extrem: Other: bilateral lower extremity edema extending to the knees which is nonpitting. There is no erythema, warmth or tenderness. Palpable distal pulses noted. <Maureen David NP - Last Filed: 05/17/20 17:04> General: Yes normal to inspection <Maureen David NP - Last Filed: 05/17/20 17:04> Course Course Course Narrative: 79-year-old female here with lower extremity swelling for the last few days. Also having difficulty ambulating and acute on chronic low back pain unre lieved with oxycodone at home. On exam the patient does have bilateral lower extremity nonpitting edema. There is no erythema or concern for cellulitis. This may be secondary to her underlying liver disease. However due to the patient's history of cancer cannot rule out DVT so will check bilateral lower extremity ultrasounds, labs. patient is very anxious and tells me she wants minimal imaging and w/u here. Anxious about recent diagnosis, overwhelmed. She is agreeable to above. 1554- Ultrasound negative for DVT. Labs reviewed. Albumin slightly low which is likely causing some 3rd spaced shifting which may be contributing to the patient's lower extremity swelling. Patient was placed in Mal stockings. Again there is safety concerns for her being discharged home as she lives alone. Physical therapy consult was ordered and case management was made aware of patient. Patient seems anxious about. 1700-Sign out to Paul CARDIAC RN pending above. <Maureen David NP - Last Filed: 05/17/20 17:04> Medical Decision Making MDM Narrative Medical decision making narrative: Considered chronic venous stasis, low albumin, DVT Less likely DVT with negative US. Low albumi n today 3.0 which is likely contributing to edema. <Maureen David NP - Last Filed: 05/17/20 17:04> Medical Records Medical records reviewed: Yes I reviewed the patient's medical records. <Maureen David NP - Last Filed: 05/17/20 17:04> Lab Data Lab results reviewed: Yes I reviewed the patient's lab results. <Maureen David NP - Last Filed: 05/17/20 17:04> Result diagrams: : 05/17/20 12:48 05/17/20 12:48 <Maureen David NP - Last Filed: 05/17/20 17:04> Labs: Lab Results 05/17/20 05/17/20 05/17/20 Range/Units 12:48 12:48 12:48 WBC 10.2 (4.8-10.8) X10*3/uL RBC 5.15 D (4.20-5.50) X10*6/uL Hgb 14.8 D (12.0-16.0) g/dl Hct 45.1 D (37-47) % MCV 87.6 (80-98) fL MCH 28.7 (27.0-33.0) pg MCHC 32.8 (31.0-35.0) g/dl RDW 15.7 (11.0-16.0) % Plt Count 191 (160-400) X10*3/uL MPV 9.5 (9.4-12.3) fL Immature Gran % (Auto) 2.7 H (0.0-0.4) % Neut % (Auto) 76.4 H (45-73) % Lymph % (Auto) 12.3 L (20-40) % Mckean % (Auto) 7.4 (2-11) % Eos % (Auto) 1.0 (0-4) % Baso % (Auto) 0.2 (0-2) % Lymph # (Auto) 1.3 (1.2-4.9) X10*3/uL Mckean # (Auto) 0.8 (0.1-1.2) X10*3/uL Eos # (Auto) 0.1 (0.0-0.4) X10*3/uL Baso # (Auto) 0.0 (0.0-0.2) X10*3/uL Abs Immat Gran (auto) 0.27 H (0.00-0.03) X10*3/uL Absolute Neuts (auto) 7.8 (2.0-8.3) X10*3/uL Absolute Nucleated RBC 0.000 (0.0-0.012) X10*3/uL Nucleated RBC % (auto) 0.0 (0.0-0.2) /100WBC PT 12.0 (10.8-13.0) SEC INR 1.0 (0.9-1.1) Sodium 133 L (135-145) mmol/L Potassium 4.4 (3.3-5.1) mmol/l Chloride 101 (96-108) mmol/L Carbon Dioxide 23 (22-29) mmol/L Anion Gap 13 (12-20) BUN 44 H (9-16) mg/dL Creatinine 0.98 (0.5-1.4) mg/dL Estim Creat Clear Calc 55.6 Estimated GFR 55 Random Glucose 81 (60-115) mg/dL Calcium 7.9 L (8.4-10.2) mg/dL Magnesium 2.2 (1.6-2.6) mg/dL Total Bilirubin 0.7 (0.0-1.0) mg/dL Direct Bilirubin 0.3 (0.0-0.5) mg/dL AST 39 H (5-31) U/L ALT 29 (0-31) U/L Alkaline Phosphatase 182 H D (39-117) U/L Total Protein 5.8 L (6.5-8.0) g/dL Albumin 3.1 L (3.5-5.0) g/dL <Maureen David, CARDIAC RN - Last Filed: 05/17/20 17:04> Lab Results 05/17/20 05/17/20 05/17/20 Range/Units 12:48 12:48 12:48 WBC 10.2 (4.8-10.8) X10*3/uL RBC 5.15 D (4.20-5.50) X10*6/uL Hgb 14.8 D (12.0-16.0) g/dl Hct 45.1 D (37-47) % MCV 87.6 (80-98) fL MCH 28.7 (27.0-33.0) pg MCHC 32.8 (31.0-35.0) g/dl RDW 15.7 (11.0-16.0) % Plt Count 191 (160-400) X10*3/uL MPV 9.5 (9.4-12.3) fL Immature Gran % (Auto) 2.7 H (0.0-0.4) % Neut % (Auto) 76.4 H (45-73) % Lymph % (Auto) 12.3 L (20-40) % Mckean % (Auto) 7.4 (2-11) % Eos % (Auto) 1.0 (0-4) % Baso % (Auto) 0.2 (0-2) % Lymph # (Auto) 1.3 (1.2-4.9) X10*3/uL Mckean # (Auto) 0.8 (0.1-1.2) X10*3/uL Eos # (Auto) 0.1 (0.0-0.4) X10*3/uL Baso # (Auto) 0.0 (0.0-0.2) X10*3/uL Abs Immat Gran (auto) 0.27 H (0.00-0.03) X10*3/uL Absolute Neuts (auto) 7.8 (2.0-8.3) X10*3/uL Absolute Nucleated RBC 0.000 (0.0-0.012) X10*3/uL Nucleated RBC % (auto) 0.0 (0.0-0.2) /100WBC PT 12.0 (10.8-13.0) SEC INR 1.0 (0.9-1.1) Sodium 133 L (135-145) mmol/L Potassium 4.4 (3.3-5.1) mmol/l Chloride 101 (96-108) mmol/L Carbon Dioxide 23 (22-29) mmol/L Anion Gap 13 (12-20) BUN 44 H (9-16) mg/dL Creatinine 0.98 (0.5-1.4) mg/dL Estim Creat Clear Calc 55.6 Estimated GFR 55 Random Glucose 81 (60-115) mg/dL Calcium 7.9 L (8.4-10.2) mg/dL Magnesium 2.2 (1.6-2.6) mg/dL Total Bilirubin 0.7 (0.0-1.0) mg/dL Direct Bilirubin 0.3 (0.0-0.5) mg/dL AST 39 H (5-31) U/L ALT 29 (0-31) U/L Alkaline Phosphatase 182 H D (39-117) U/L Total Protein 5.8 L (6.5-8.0) g/dL Albumin 3.1 L (3.5-5.0) g/dL <Poonam Choudhury DO - Last Filed: 05/18/20 06:38> Imaging Data Venous US: Attestation: I personally reviewed and interpreted this imaging study as follows: <Maureen David NP - Last Filed: 05/17/20 17:04> Radiologist's impression: EXAMINATION: US VENOUS ULTRASOUND WITH DOPPLER LOWER EXTREMITY, BILATERAL CLINICAL INFORMATION: Bilateral lower extremity swelling. COMPARISON: None TECHNIQUE: Ultrasound of the deep veins is performed from the hip to the calf with compression sonography and color and pulse Doppler assessment. Spectral analysis with color-flow imaging is performed. FINDINGS: RIGHT: There is normal venous compression and respiratory variation and augmented flow. The visualized common femoral vein, superficial femoral vein, profunda femoral vein, popliteal vein, and the trifurcation region shows no evidence of deep venous thrombosis. There is no significant popliteal fossa cyst. There is moderate edema in the calf. LEFT: There is normal venous compression and respiratory variation and augmented flow. The visualized common femoral vein, superficial femoral vein, profunda femoral vein, popliteal vein, and the trifurcation region shows no evidence of deep venous thrombosis. There is no significant popliteal fossa cyst. There is moderate edema in the calf region. There is a small lymph node visualized in the groin measuring 1.4 x 1.1 x 1.0 cm. <Maureen David NP - Last Filed: 05/17/20 17:04> Discharge Plan Discharge Clinical Impression: Weakness <Maureen David NP - Last Filed: 05/17/20 17:04> Prescriptions: No Action (DME) miscellaneous medical supply Misc See Rx Instructions .ROUTE .MEDSUPPLY Qty: 1 RF: 0 (DME) Ultra-Light Rollator Misc See Rx Instructions .ROUTE .MEDSUPPLY Qty: 1 RF: 0 (DME) walker Misc See Rx Instructions .ROUTE .MEDSUPPLY Qty: 1 RF: 0 (DME) walker Misc See Rx Instructions .ROUTE .MEDSUPPLY Qty: 1 RF: 0 (DME) miscellaneous medical supply Misc See Rx Instructions .ROUTE .MEDSUPPLY Qty: 1 RF: 0 anastrozole 1 mg Tablet 1 mg PO DAILY Qty: 30 RF: 3 dexamethasone [Decadron] 4 mg Tablet 4 mg PO BID Qty: 60 RF: 0 oxycodone 5 mg Capsule 5 mg PO Q6H PRN (Reason: Back Pain) Qty: 60 RF: 0 cholecalciferol (vitamin D3) [Vitamin D3] 125 mcg (5,000 unit) Tablet 125 mcg PO DAILY RF: 0 cyclobenzaprine 10 mg tablet 1 tab PO BEDTIME PRN (Reason: Back Pain) RF: 0 levothyroxine 150 mcg tablet 1 tab PO QAM RF: 0 polyethylene glycol 3350 17 gram Powder In Packet 17 g PO BID Qty: 100 RF: 0 docusate sodium [Colace] 100 mg capsule 100 mg PO DAILY Qty: 90 RF: 0 <Maureen David NP - Last Filed: 05/17/20 17:04> Sign Out Sign Out Data: Sign Out Comment: placement in the morning Last updated by Maureen David NP at 05/17/20 17:03 <Maureen David NP - Last Filed: 05/17/20 17:04>
[2020-05-17 12:53] LABS: MANUAL DIFF FLAG NO
[2020-05-17 12:54] LABS: Basophils Percent Auto 0.2 % (0-2); Eosinophils Absolute Auto 0.1 X10*3/uL (0.0-0.4); Hematocrit 45.1 % (37-47); Hemoglobin 14.8 g/dl (12.0-16.0); Imm Gran Abs Auto 0.27 X10*3/uL (0.00-0.03); Imm Gran Pct Auto 2.7 % (0.0-0.4); Lymphocytes Absolute Auto 1.3 X10*3/uL (1.2-4.9); Lymphocytes Percent Auto 12.3 % (20-40); Mean Corpuscular HGB Conc 32.8 g/dl (31.0-35.0); Mean Corpuscular Hemoglobin 28.7 pg (27.0-33.0); Mean Corpuscular Volume 87.6 fL (80-98); Mean Platelet Volume 9.5 fL (9.4-12.3); Monocytes Absolute Auto 0.8 X10*3/uL (0.1-1.2); Monocytes Percent Auto 7.4 % (2-11); Neutrophils Absolute Auto 7.8 X10*3/uL (2.0-8.3); Neutrophils Percent Auto 76.4 % (45-73); Platelet Count 191 X10*3/uL (160-400); Red Blood Count 5.15 X10*6/uL (4.20-5.50); Red Cell Distribution Width 15.7 % (11.0-16.0); White Blood Count 10.2 X10*3/uL (4.8-10.8)
[2020-05-17 13:19] LABS: Alanine Aminotransferase 29 U/L (0-31); Albumin Level 3.1 g/dL (3.5-5.0); Alkaline Phosphatase 182 U/L (39-117); Anion Gap 13 (12-20); Aspartate Amino Transferase 39 U/L (5-31); Bilirubin Direct 0.3 mg/dL (0.0-0.5); Bilirubin Total 0.7 mg/dL (0.0-1.0); Blood Urea Nitrogen 44 mg/dL (9-16); Calcium 7.9 mg/dL (8.4-10.2); Carbon Dioxide 23 mmol/L (22-29); Chloride 101 mmol/L (96-108); Creatinine Clr Calc Pharmacy 55.6; Estimated Glomerular Filt Rate 55; Glucose Random 81 mg/dL (60-115); Magnesium 2.2 mg/dL (1.6-2.6); Potassium 4.4 mmol/l (3.3-5.1); Sodium 133 mmol/L (135-145); Total Protein 5.8 g/dL (6.5-8.0)
--- NOTE | 2020-05-17 15:37 | PC.NURSE ---
pt aware of u/s results, awaits PT, given snack and repositioned. pain meds requested.
[2020-05-17] MEDS: oxyCODONE HCl Immed Release 5 MG TABLET PO (15:54)
--- NOTE | 2020-05-17 16:13 | PC.NURSE ---
prep for evening: hospital bed and daniel stockings measured, dinner ordered. pain is improved with decreased movement in bed. pure wick is working. aprox 150cc's in vaccutainer.
--- NOTE | 2020-05-17 16:41 | MHC.CM.ED ---
Received case management consult from [facility] Reddy. Patient came to ER due to cardio toxicity from chemo. Physical therapy eval is pending. [facility]2020, [facility] Per [facility], patient refused servcies. Anticipate patient will remain in ER overnight. Continue to monitor for d/c needs.
[2020-05-17] MEDS: dexAMETHasone 4 MG TABLET PO (21:28)
--- NOTE | 2020-05-17 22:29 | PC.NURSE ---
Pt resting in bed with eyes closed. Mal stockings applied to both legs. Purewick remains in place with good urine output. Scheduled HS meds given. Pt updated on plan for the morning.
[2020-05-18] VITALS (10 sets, daily range): BP systolic 118–134; BP diastolic 61–85; PULSE 76–112; RESP 15–20; TEMP -13.4–37; O2SAT 93–99; BMI 29.8
[2020-05-18] MEDS: Cyclobenzaprine HCl 10 MG TABLET PO ×2 (00:16→20:53)
[2020-05-18] MEDS: oxyCODONE HCl Immed Release 5 MG TABLET PO ×3 (00:17→20:54)
--- NOTE | 2020-05-18 00:28 | PC.NURSE ---
Patient medicated for 6/10 pelvic pain. Feet floated on pillows. Patient requests to keep TEDS on overnight. Will CTM.
--- NOTE | 2020-05-18 01:08 | PC.NURSE ---
report taken from dylan fan at this time. pt was medicated per pain prior to this rns shift. pt laying in hospital bed, pure wick in place. plan for pt/ot in the am. ?covid swab order.
--- NOTE | 2020-05-18 03:23 | PC.NURSE ---
pt sleeping at this time, equal and non labored rr noted. pure wick in place working with no issues
--- NOTE | 2020-05-18 06:22 | PC.NURSE ---
pt remains sleeping. vitals updated and within normal limited. breakfast ordered.
[2020-05-18] MEDS: Levothyroxine Sodium 150 MCG TABLET PO (06:25)
--- NOTE | 2020-05-18 08:25 | PC.NURSE ---
physical therapist Romy at bedside, pt aware of plan of care.
[2020-05-18] MEDS: dexAMETHasone 4 MG TABLET PO ×2 (08:57→20:54)
[2020-05-18] MEDS: Anastrozole 1 MG TABLET PO (08:57)
[2020-05-18] MEDS: Docusate Sodium 100 MG CAPSULE PO (08:57)
--- NOTE | 2020-05-18 09:15 | PC.NURSE ---
pt refused the polyethylene glycol 17gm stating that she had a huge bm 2 days ago and i don't want to have diarrhea . aware.
--- NOTE | 2020-05-18 09:58 | MHC.CM.ED ---
Addendum entered by Jennifer Delcid 05/18/20 10:00: Patient was diagnosed with Cancer 3 weeks ago. She has completed all of the required scans and biopsy. Patient is not currently on chemo or radiation. Original Note: Received case management consult overnight from Maureen. Patient came to ER due to leg pain. Work up essentially negative. Physical therapy eval completed. STR is recommended. Met with patient in regards to discharge planning. Patient lives alone, ambulates with a walker and had no services prior to coming to the ER. PCP verified. Copy of HCP verified to be on file. Patient is agreeable to STR. List of facilities contracted with patient's insurance provided from [employer]. Patient will look over list and provide 2 choices. Continue to monitor for d/c needs.
[2020-05-18 10:16] LABS: SARS COV2 PCR INHOUSE NEGATIVE (Negative)
--- NOTE | 2020-05-18 10:42 | MHC.CM.ED ---
[facility] choice [facility]. Referral made via [employer]. Continue to monitor for d/c needs.
--- NOTE | 2020-05-18 14:00 | CA_ITS ---
Transthoracic Echocardiogram Patient (Last, First, Middle): Susie Nixon A Gender: Female Date of : 1940 Age: 79 Procedure Date: 05/18/2020 Procedure Type: Transthoracic Echocardiogram Location: ER Height: 170.18 cm Weight: 87.54 kg BSA: 1.99 m2 Heart Rate: bpm BP: 129 / 74 mmHg Garbage Person: Referring MD: Daisy Romano MD Symptoms: pre chemo evaluation Study Quality: Fair ECG Rhythm: Sinus tachycardia Conclusions: - The left ventricular systolic function is normal. The visually estimated ejection fraction is between 55-60%. - Small ill defined density attached to the anterior mitral leaflet; possible vegetation in the appropriate clinical setting (vs nonspecific leaflet thickening). Findings Left Ventricle Normal left ventricular cavity size. There is moderately increased left ventricular wall thickness. The left ventricular systolic function is normal. The visually estimated ejection fraction is between 55-60%. There is no evidence of regional wall motion abnormalities. Diastolic function is normal for age. Right Ventricle Normal right ventricular cavity size and systolic function. Atria Both atria are normal in size. Aortic Valve There is a normal trileaflet aortic valve. There is no aortic valve stenosis. There is no aortic valve regurgitation. Mitral Valve There is trace mitral valve regurgitation. There is no mitral valve stenosis. Small ill defined density attached to the anterior mitral leaflet; possible vegetation in the appropriate clinical setting (vs nonspecific leaflet thickening). Pulmonic Valve The pulmonic valve was not well visualized. There is trace pulmonic valve regurgitation. Tricuspid Valve Normal tricuspid valve structure. There is trace tricuspid valve regurgitation. The pulmonary artery systolic pressure is normal. Great Vessels The aortic annulus, sinuses of valsalva, and asc aorta are normal in size. Venous The inferior vena cava is normal in size. Pericardium/Pleural There is no evidence of pericardial effusion. Prior Study Comparison No prior study available for comparison. Recommendations, Care & Conclusions Consider a MARIBELL if clinically appropriate. Measurements 2D Linear Measurements IVSd: 1.21 0.6-0.9/0.6-1.0 cm LVIDd: 3.47 3.9-5.3/4.2-5.9 cm LVIDd Index: 1.74 2.4-3.2/2.2-3.1 cm/m2 LVIDs: 1.97 2.0-3.6 cm LVPWd: 1.28 0.7-1.1 cm Ao Root: 3.10 2.1-3.5 cm LA Diam: 3.50 2.7-3.8/3.0-4.0 cm LAIDs Index: 1.76 1.5-2.3 cm/m2 LV Mass: 176.72 67-162/88-224 g LV Mass Index: 88.81 43-95/49-115 g/m2 LVOT Diam: 2.00 3.0+(-)1.3 cm Mitral Valve MV Pk E: 0.41 MV PK A: 0.72 MV Decel Time: 145.00 E/A: 0.60 E'Lateral: 6.31 E'Medial: 7.72 E/E' Med: 5.30 E/E' Lat: 6.50 PHT: 43.00 MVA PHT: 5.12 Decel [place]: 2.82 Aortic Valve AoV Pk [place]: 1.42 AoV Mn [place]: 1.06 AoV VTI: 0.23 AoV Pk Grad: 8.00 Aov Mn Grad: 5.00 JOHNNY Cont.VTI: 1.94 LVOT LVOT Pk [place]: 0.91 LVOT Mn [place]: 0.60 LVOT VTI: 0.14 LVOT Pk Grad: 3.00 LVOT Mn Grad: 2.00 LVOT Diam: 2.00 LVOT Area: 3.14 Diastolic Function MV Pk E: 0.41 MV Pk A: 0.72 E/A: 0.60 E'Medial: 7.72 E/E' Med: 5.30 E' Laterial: 6.31 E/E' Lat: 6.50 Tricuspid Valve TR Pk [place]: 1.66 TR Pk Grad: 11.00 RA Press: 3.00 RVSP: 14.00 Great Vessels Aorta Ao Root-2D: 3.10 2.0-3.7 cm Ao Asc: 3.30 2.1-3.4 cm Pulmonary Valve PV Pk Col[place]: 1.07 Peak PV Grad: 5.00 Updated in Other Vendor System with Status of Final Víctor Villeda MD electronically signed on 05/18/2020 4:27:08 PM with status of Final
--- NOTE | 2020-05-18 15:51 | MHC.CM.ED ---
[facility] is able to offer a bed and has obtained insurance auth. T/W went to discuss discharge plans with patient. Patient became very upset. Patient is scheduled for an echo tomorrow. Someone at Dr Romano's office said they were rescheduling her echo from to today. Patient will have to privately pay for transport back to the hospital for an echo if not done today. Dr Romano notified. Dr Romano came to see patient and ordered an echo. Discharge is on hold at this time. Continue to monitor for d/c needs.
--- NOTE | 2020-05-18 16:02 | MHC.CM.ED ---
Echo completed. Spoke with [facility]. Patient can leave at 5pm. [facility] booked. Med nec in chart. Attempted to book [facility]. However they are unable to acccomdate transfer. Patient, Maureen EQUIPMENT TECH and Svetlana RN aware. Continue to monitor for d/c needs.
--- NOTE | 2020-05-18 17:13 | PC.NURSE ---
hospitalist at bedside. patient to be admitted s/p echo done, patient show endocarditis
--- NOTE | 2020-05-18 17:35 | PM.IMHP ---
History of Present Illness Date of Service: 05/18/20 Chief Complaint: wekness difficulty walking 79-year-old female recently diagnosed with metastatic liver cancer presented with weakness generalized pain and difficulty walking, patient was recently diagnosed with metastatic liver cancer and being followed by oncology Dr. Romano, patient reported weakness was getting worse and patient was not able to stand last night , so brought to ER, patient was post to go to rehab but found to have small ill defined density on mitral valve possible vegetation, patient denies any fever chills, patient denies any chest pain or shortness of breath, in the ER patient was given 1 dose of Vanco and Rocephin and inpatient admission was requested to rule out endocarditis patient has history of breast cancer and is status post double mastectomy Review of Systems Constitutional: Constitutional: Denies headache(s) and Denies weakness ENT: Denies dizziness and Denies headache(s) Musculoskeletal: Musculoskeletal: Denies numbness and Denies tingling Neurologic: Reports system reviewed and no additional complaints, except as documented, Denies Abnormal speech present, Denies dizziness, Denies headache(s), Denies numbness, Denies tingling and Denies weakness [facility] Medical History Breast cancer Hx of radiation therapy Hypertension Hypothyroidism Liver cancer Neuropathy Sciatica Family History Mother Colon cancer Surgical History H/O knee surgery H/O left mastectomy History of bilateral mastectomy History of hip surgery History of left knee replacement (~09/2011) History of lumpectomy of left breast (~02/2012) Social History Household Members: None Housing: Apartment Do you presently have visiting nurse or other home services: No Alcohol intake: never Smoking Status: Never smoker Smoked in Last 30 Days: No Use of substances other than those prescribed or required for medical reasons: No Currently Displaying Signs/Symptoms of Drug Intoxication Withdrawal: No Any prior treatment program specific to substance use: No Have you been hit, kicked, punched, or otherwise hurt by someone within the past year? If so, by whom?: No Do you feel safe in your current relationship?: No Is there a partner from a previous relationship who is making you feel unsafe now?: No Are you made to feel afraid or neglected: No Advance Directives: No Advance Directives Information Provided: Yes Advance Directives on File: No Do you have thoughts of harming others: None Do you have a plan to hurt others: No Plan Recently lost weight without trying: No service: No Current occupational status: retired Meds Allergies Allergy/AdvReac Type Severity Reaction Status Date / Time codeine [CODEINE] Allergy Intermediate VOMITING Verified 05/17/20 11:29 Benadryl Allergy Unknown Unknown Uncoded 04/22/20 19:05 codeine Allergy Unknown vomiting Uncoded 10/10/18 00:00 Codeine Sulfate AdvReac Mild Vomiting Uncoded 04/22/20 19:07 Home Medications Medication Instructions Recorded Confirmed Type cyclobenzaprine 1 tab PO BEDTIME PRN 04/22/20 05/17/20 History levothyroxine 1 tab PO QAM 04/22/20 05/17/20 History cholecalciferol (vitamin D3) 125 mcg PO DAILY 05/17/20 05/17/20 History [Vitamin D3] Physical Exam Vital Signs and Narrative: Vital Signs: Last Vital Signs Temp 98.1 F 05/18/20 16:50 Pulse 100 05/18/20 16:50 Resp 17 05/18/20 16:50 BP 126/73 05/18/20 16:50 Pulse Ox 97 05/18/20 16:50 Body Mass Index 29.3 Const: General: anxious and tired appearing Resp: Auscultation: clear to auscultation bilaterally GI: Inspection: Yes normal to inspection Palpation (GI): nontender Neuro: General: patient oriented x3 Speech: No Abnormal speech present Results Labs Labs: Laboratory Tests 05/17/20 05/17/20 05/17/20 12:48 12:48 12:48 WBC 10.2 RBC 5.15 D Hgb 14.8 D Hct 45.1 D MCV 87.6 MCH 28.7 MCHC 32.8 RDW 15.7 Plt Count 191 MPV 9.5 Immature Gran % (Auto) 2.7 H Neut % (Auto) 76.4 H Lymph % (Auto) 12.3 L [place] % (Auto) 7.4 Eos % (Auto) 1.0 Baso % (Auto) 0.2 Lymph # (Auto) 1.3 [place] # (Auto) 0.8 Eos # (Auto) 0.1 Baso # (Auto) 0.0 Abs Immat Gran (auto) 0.27 H Absolute Neuts (auto) 7.8 Absolute Nucleated RBC 0.000 Nucleated RBC % (auto) 0.0 PT 12.0 INR 1.0 Sodium 133 L Potassium 4.4 Chloride 101 Carbon Dioxide 23 Anion Gap 13 BUN 44 H Creatinine 0.98 Estim Creat Clear Calc 55.6 Estimated GFR 55 Random Glucose 81 Calcium 7.9 L Magnesium 2.2 Total Bilirubin 0.7 Direct Bilirubin 0.3 AST 39 H ALT 29 Alkaline Phosphatase 182 H D Total Protein 5.8 L Albumin 3.1 L Coronavirus (PCR) 05/18/20 09:06 WBC RBC Hgb Hct MCV MCH MCHC RDW Plt Count MPV Immature Gran % (Auto) Neut % (Auto) Lymph % (Auto) [place] % (Auto) Eos % (Auto) Baso % (Auto) Lymph # (Auto) [place] # (Auto) Eos # (Auto) Baso # (Auto) Abs Immat Gran (auto) Absolute Neuts (auto) Absolute Nucleated RBC Nucleated RBC % (auto) PT INR Sodium Potassium Chloride Carbon Dioxide Anion Gap BUN Creatinine Estim Creat Clear Calc Estimated GFR Random Glucose Calcium Magnesium Total Bilirubin Direct Bilirubin AST ALT Alkaline Phosphatase Total Protein Albumin Coronavirus (PCR) NEGATIVE Assessment and Plan (1) Mitral valve vegetation: Status: Acute (2) Intractable back pain: Status: Acute (3) Metastatic breast cancer: Status: Acute 79-year-old female recently diagnosed with metastatic liver cancer with history of breast cancer in the past status post double mastectomy presented with weakness difficulty walking , patient has outpatient echocardiogram done and shows possible mitral valve vegetation Mitral valve vegeitation rule out endocarditis versus metastasis patient received 1 dose of Vanco and Rocephin continue IV antibiotic follow-up blood cultures id and Cardiology consult metastatic liver cancer with history of breast cancer being followed by Oncology Dr. Romano scheduled to have radiation on May 24 hypothyroidism continue levothyroxine DVT prophylaxis Lovenox
[2020-05-18] MEDS: cefTRIAXone sodium 2 GM in 0.9 % Sodium Chloride 50 ML IV (17:36)
[2020-05-18 17:37] LABS: Basophils Percent Auto 0.1 % (0-2); Hematocrit 42.8 % (37-47); Hemoglobin 13.9 g/dl (12.0-16.0); Imm Gran Abs Auto 0.14 X10*3/uL (0.00-0.03); Imm Gran Pct Auto 1.3 % (0.0-0.4); Lymphocytes Absolute Auto 0.6 X10*3/uL (1.2-4.9); MANUAL DIFF FLAG SCAN; Mean Corpuscular HGB Conc 32.5 g/dl (31.0-35.0); Mean Corpuscular Hemoglobin 28.2 pg (27.0-33.0); Mean Corpuscular Volume 86.8 fL (80-98); Mean Platelet Volume 9.4 fL (9.4-12.3); Monocytes Absolute Auto 0.5 X10*3/uL (0.1-1.2); Monocytes Percent Auto 4.4 % (2-11); Neutrophils Absolute Auto 9.5 X10*3/uL (2.0-8.3); Neutrophils Percent Auto 88.2 % (45-73); Platelet Count 196 X10*3/uL (160-400); Red Blood Count 4.93 X10*6/uL (4.20-5.50); Red Cell Distribution Width 15.5 % (11.0-16.0); SCAN SMEAR FLAG 1; White Blood Count 10.7 X10*3/uL (4.8-10.8)
[2020-05-18 17:54] LABS: SLIDE REVIEW VERIFIED
[2020-05-18 18:04] LABS: Lactic Acid 1.5 mmol/L (0.5-2.0)
[2020-05-18 18:13] LABS: Alanine Aminotransferase 25 U/L (0-31); Albumin Level 3.1 g/dL (3.5-5.0); Alkaline Phosphatase 167 U/L (39-117); Anion Gap 13 (12-20); Aspartate Amino Transferase 36 U/L (5-31); Bilirubin Direct 0.2 mg/dL (0.0-0.5); Bilirubin Total 0.6 mg/dL (0.0-1.0); Blood Urea Nitrogen 33 mg/dL (9-16); Calcium 8.1 mg/dL (8.4-10.2); Carbon Dioxide 22 mmol/L (22-29); Chloride 105 mmol/L (96-108); Creatinine Clr Calc Pharmacy 59.2; Estimated Glomerular Filt Rate 59; Glucose Random 126 mg/dL (60-115); Potassium 4.1 mmol/l (3.3-5.1); Sodium 136 mmol/L (135-145); Total Protein 5.7 g/dL (6.5-8.0)
[2020-05-18 18:17] LABS: B Type Natriuretic Peptide 48 pg/mL (<100)
[2020-05-18] MEDS: 0.9 % Sodium Chloride 1,000 ML 75 ML IVCONT (23:06)
[2020-05-19] VITALS (8 sets, daily range): BP systolic 129–145; BP diastolic 54–89; PULSE 73–96; RESP 18–20; TEMP 36–37; O2SAT 97–100
[2020-05-19] MEDS: 0.9 % Sodium Chloride Flush 3 ML SYRINGE IVFLUSH ×3 (00:18→21:09)
[2020-05-19] MEDS: oxyCODONE HCl Immed Release 5 MG TABLET PO (04:24)
[2020-05-19] MEDS: Levothyroxine Sodium 150 MCG TABLET PO (05:55)
[2020-05-19] MEDS: vancomycin HCL 750 MG in 0.9 % Sodium Chloride 250 ML 265 MG IV ×2 (06:31→18:22)
[2020-05-19] MEDS: Cholecalciferol (Vitamin D3) 25 MCG TABLET 125 MCG PO (07:48)
[2020-05-19] MEDS: dexAMETHasone 4 MG TABLET PO ×2 (07:49→21:05)
[2020-05-19] MEDS: Docusate Sodium 100 MG CAPSULE PO (07:49)
[2020-05-19] MEDS: Anastrozole 1 MG TABLET PO (07:49)
--- NOTE | 2020-05-19 09:23 | MHC.CM.PN ---
CM met with Patient. Patient lives alone in a condo and uses a rollator to assist with mobility. Patient has 4 involved children and her Daughter/Elena is her HCP and very supportive. Patient explained that she does not have a VNA benefit with [facility], under her present diagnosis. Patient's goal is to go to [facility] for STR. CM will continue to follow for dc planning. IMM addressed with Patient and the original has been given to her and a copy has been placed on the chart. PCP is Dr. Mert Stone.Patient's bed and full bath are on the second floor of Patient's condo. Patient mentioned the possibility of needing 2 weeks of radiation at some point.
[2020-05-19] MEDS: 0.9 % Sodium Chloride 1,000 ML 75 ML IVCONT (11:53)
--- NOTE | 2020-05-19 12:16 | P.CONCA_ITS ---
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 She has background of breast cancer for which she underwent lumpectomy followed by radiation therapy in 2011 followed by recurrence in 2016 requiring bilateral mastectomies. She now presented with generalized weakness and pain due to metastatic disease. She had routine echocardiography which was done primarily to assess LV function before chemotherapy. This showed a small mobile mass on the anterior mitral valve leaflet. Differentials of this include infective endocarditis versus marantic endocarditis due to her known metastatic disease. She has no fevers or chills. She has no night sweats. She has not been losing weight. no other issues right now. She had blood cultures drawn and she was given empiric antibiotics. Blood cultures are currently pending. Review of Systems Review of Systems: Yes all other systems are reviewed and are negative Constitutional: Constitutional: Denies headache(s) and Denies weakness ENT: Denies dizziness and Denies headache(s) Musculoskeletal: Musculoskeletal: Denies numbness and Denies tingling Neurologic: Reports system reviewed and no additional complaints, except as documented, Denies Abnormal speech present, Denies dizziness, Denies headache(s), Denies numbness, Denies tingling and Denies weakness PMFSH Past Medical History Medical History Breast cancer Hx of radiation therapy Hypertension Hypothyroidism Liver cancer Neuropathy Sciatica Family History Family History Mother Colon cancer Surgical History Surgical History H/O knee surgery H/O left mastectomy History of bilateral mastectomy History of hip surgery History of left knee replacement (~09/2011) History of lumpectomy of left breast (~02/2012) Social History Social History Household Members: None Housing: Apartment Do you presently have visiting nurse or other home services: No Alcohol intake: never Smoking Status: Never smoker Smoked in Last 30 Days: No Use of substances other than those prescribed or required for medical reasons: No Currently Displaying Signs/Symptoms of Drug Intoxication Withdrawal: No Any prior treatment program specific to substance use: No Have you been hit, kicked, punched, or otherwise hurt by someone within the past year? If so, by whom?: No Do you feel safe in your current relationship?: No Is there a partner from a previous relationship who is making you feel unsafe now?: No Are you made to feel afraid or neglected: No Advance Directives: No Advance Directives Information Provided: Yes Advance Directives on File: No Do you have thoughts of harming others: None Do you have a plan to hurt others: No Plan Recently lost weight without trying: No service: No Current occupational status: retired Meds Allergies Allergy/AdvReac Type Severity Reaction Status Date / Time codeine [CODEINE] Allergy Intermediate VOMITING Verified 05/17/20 11:29 Benadryl Allergy Unknown Unknown Uncoded 04/22/20 19:05 codeine Allergy Unknown vomiting Uncoded 10/10/18 00:00 Codeine Sulfate AdvReac Mild Vomiting Uncoded 04/22/20 19:07 Home Medications Medication Instructions Recorded Confirmed Type cyclobenzaprine 1 tab PO BEDTIME PRN 04/22/20 05/17/20 History levothyroxine 1 tab PO QAM 04/22/20 05/17/20 History cholecalciferol (vitamin D3) 125 mcg PO DAILY 05/17/20 05/17/20 History [Vitamin D3] Physical Exam Vital Signs: Vital Signs: Vital Signs Temp Pulse Resp BP Pulse Ox 05/19/20 10:55 97.7 F 96 18 141/74 H 98 05/19/20 09:33 134/87 05/19/20 06:53 96.9 F 73 18 136/77 99 05/19/20 04:00 98.6 F 83 20 145/89 H 100 05/18/20 23:23 98.6 F 76 20 132/74 99 05/18/20 20:40 98.0 F 91 18 118/66 99 05/18/20 18:00 97.8 F 91 16 134/61 95 05/18/20 16:50 98.1 F 100 17 126/73 97 05/18/20 15:19 7.8 F L 112 H 16 129/74 97 05/18/20 13:38 95.8 F L 84 15 123/72 99 Body Mass Index 29.8 GENERAL APPEARANCE: in no acute distress, well developed, well nourished. HEENT: unremarkable. HEAD: normocephalic, atraumatic. NECK/THYROID: no carotid bruit, no jugular venous distention. SKIN: no suspicious lesions, warm and dry. HEART: no murmurs, regular rate and rhythm, S1, S2 normal. LUNGS: clear to auscultation bilaterally. ABDOMEN: normal, bowel sounds present, soft, nontender, nondistended. EXTREMITIES: no clubbing, cyanosis, or edema. PERIPHERAL PULSES: equal. NEUROLOGIC: nonfocal, alert and oriented. PSYCH: mood/affect full range. Neuro: Speech: No Abnormal speech present Results Labs and Meds Result diagrams: 05/18/20 17:31 05/18/20 17:31 Lab results: Laboratory Results - last 24 hr 05/18/20 05/18/20 05/18/20 17:31 17:31 17:31 WBC 10.7 RBC 4.93 Hgb 13.9 Hct 42.8 MCV 86.8 MCH 28.2 MCHC 32.5 RDW 15.5 Plt Count 196 MPV 9.4 Immature Gran % (Auto) 1.3 H Neut % (Auto) 88.2 H Lymph % (Auto) 6.0 L [place] % (Auto) 4.4 Eos % (Auto) 0.0 Baso % (Auto) 0.1 Lymph # (Auto) 0.6 L [place] # (Auto) 0.5 Eos # (Auto) 0.0 Baso # (Auto) 0.0 Abs Immat Gran (auto) 0.14 H Absolute Neuts (auto) 9.5 H Absolute Nucleated RBC 0.000 Nucleated RBC % (auto) 0.0 Smear Tech's Comments VERIFIED Sodium 136 Potassium 4.1 Chloride 105 Carbon Dioxide 22 Anion Gap 13 BUN 33 H Creatinine 0.92 Estim Creat Clear Calc 59.2 Estimated GFR 59 Random Glucose 126 H D Lactic Acid 1.5 Calcium 8.1 L Total Bilirubin 0.6 Direct Bilirubin 0.2 AST 36 H ALT 25 Alkaline Phosphatase 167 H B-Natriuretic Peptide Total Protein 5.7 L Albumin 3.1 L 05/18/20 17:31 WBC RBC Hgb Hct MCV MCH MCHC RDW Plt Count MPV Immature Gran % (Auto) Neut % (Auto) Lymph % (Auto) [place] % (Auto) Eos % (Auto) Baso % (Auto) Lymph # (Auto) [place] # (Auto) Eos # (Auto) Baso # (Auto) Abs Immat Gran (auto) Absolute Neuts (auto) Absolute Nucleated RBC Nucleated RBC % (auto) Smear Tech's Comments Sodium Potassium Chloride Carbon Dioxide Anion Gap BUN Creatinine Estim Creat Clear Calc Estimated GFR Random Glucose Lactic Acid Calcium Total Bilirubin Direct Bilirubin AST ALT Alkaline Phosphatase B-Natriuretic Peptide 48 Total Protein Albumin Cardiology Testing Echo: image reviewed Assessment and Plan (1) Mitral valve vegetation: Status: Acute (2) Metastatic disease: Qualifiers: Area of secondary neoplastic involvement: bone Qualified Code(s): C79.51 - Secondary malignant neoplasm of bone Status: Acute pleasant 79-year-old female who has background of breast cancer for which she underwent surgery and radiation the past now presented with metastatic disease to spine and liver. She had routine echocardiography which is showing a small mobile mass attached to anterior mitral valve leaflet. She does not have any stigmata of endocarditis by examination. Her blood cultures are sent and I will wait for them. If her blood cultures are negative then I think the likely diagnosis is that this is marantic endocarditis. She is on empiric antibiotics currently. If her blood cultures are negative then in my opinion the antibiotics can be discontinued. If she goes to rehab then I will repeat another set of blood cultures in 2-3 weeks. Her LVEF is normal by echocardiography. She should be able to get treatment for her chemotherapy and can have routine monitoring of LV function. Thank you for allowing me to participate in the care of your patient. Please feel free to contact me if you have any questions.
--- NOTE | 2020-05-19 12:46 | P.PNIM_ITS ---
Subjective Subjective Date of Service: 05/19/20 Interval History: Patient seen and examined at bedside patient reported weakness Neurologic Neurologic: Denies Abnormal speech present Physical Exam Vital Signs: Vital Signs: Vital Signs Temp Pulse Resp BP Pulse Ox 05/19/20 10:55 97.7 F 96 18 141/74 H 98 05/19/20 09:33 134/87 05/19/20 06:53 96.9 F 73 18 136/77 99 05/19/20 04:00 98.6 F 83 20 145/89 H 100 05/18/20 23:23 98.6 F 76 20 132/74 99 05/18/20 20:40 98.0 F 91 18 118/66 99 05/18/20 18:00 97.8 F 91 16 134/61 95 05/18/20 16:50 98.1 F 100 17 126/73 97 05/18/20 15:19 7.8 F L 112 H 16 129/74 97 05/18/20 13:38 95.8 F L 84 15 123/72 99 Body Mass Index 29.8 Const: General: anxious and tired appearing Orientation/consciousness: patient oriented x3 Resp: Auscultation: clear to auscultation bilaterally GI: Inspection: Yes normal to inspection Palpation (GI): nontender Neuro: General: patient oriented x3 Speech: No Abnormal speech present Objective Data Current Medications Generic Name Dose Route Start Last Admin Trade Name Freq PRN Reason Stop Dose Admin Anastrozole 1 mg 05/18/20 09:00 05/19/20 07:49 Anastrozole 1 Mg Tablet PO 1 mg DAILY TRISHA Administration Cyclobenzaprine HCl 10 mg 05/17/20 16:05 05/18/20 20:53 Cyclobenzaprine Hcl 10 Mg Tablet PO 10 mg BEDTIME PRN Administration Back Pain Dexamethasone 4 mg 05/17/20 21:00 05/19/20 07:55 Dexamethasone 4 Mg Tablet PO Not Given BID TRISHA Docusate Sodium 100 mg 05/18/20 09:00 05/19/20 07:49 Docusate Sodium 100 Mg Capsule PO 100 mg DAILY TRISHA Administration Enoxaparin Sodium 40 mg 05/18/20 22:00 05/18/20 20:54 Enoxaparin Sodium 40 Mg/0.4 Ml Syringe SUBCUT Not Given Q24H TRISHA Ceftriaxone Sodium 1 gm/ 50 mls @ 100 mls/hr 05/19/20 17:00 Sodium Chloride IV Q24H TRISHA Sodium Chloride 1,000 mls @ 75 mls/hr 05/18/20 20:39 05/19/20 11:53 Ns IVCONT 75 mls/hr .[id number] TRISHA Administration Vancomycin HCl 750 mg/ Sodium 265 mls @ 265 mls/hr 05/19/20 07:00 05/19/20 07:44 Chloride IV Infused Q12H TRISHA Infusion Levothyroxine Sodium 150 mcg 05/18/20 06:30 05/19/20 05:55 Levothyroxine Sodium 150 Mcg Tablet PO 150 mcg DAILY@0630 TRISHA Administration Oxycodone HCl 5 mg 05/17/20 16:05 05/19/20 04:24 Oxycodone Hcl Immed Release 5 Mg Tablet PO 5 mg Q6H PRN Administration Back Pain Pharmacy Consult 1 each 05/17/20 16:59 Consult Rx Perform Med Rec MISCELLANE ONCE PRN Consult order Polyethylene Glycol 17 gm 05/17/20 21:00 05/19/20 07:49 Polyethylene Glycol 3350 17 Gm Powd.Pack PO Not Given BID TRISHA Sodium Chloride 3 ml 05/19/20 00:00 05/19/20 07:48 0.9 % Sodium Chloride Flush 3 Ml Syringe IVFLUSH Not Given QSHIFT TRISHA Vitamin D 125 mcg 05/18/20 20:39 05/19/20 07:48 Cholecalciferol (Vitamin D3) 25 Mcg Tablet PO 125 mcg DAILY TRISHA Administration Labs CBC & Chem 7: 05/18/20 17:31 05/18/20 17:31 Assessment and Plan (1) Mitral valve vegetation: Status: Acute (2) Intractable back pain: Status: Acute (3) Metastatic breast cancer: Status: Acute Assessment and Plan: 79-year-old female recently diagnosed with metastatic liver cancer with history of breast cancer in the past status post double mastectomy presented with weakness difficulty walking , patient has outpatient echocardiogram done and shows possible mitral valve vegetation Mitral valve vegeitation rule out endocarditis versus metastasis continue IV antibiotic follow-up blood cultures id and Cardiology consult pending Metastatic liver cancer with history of breast cancer being followed by Oncology Dr. Romano scheduled to have radiation on May 24 hypothyroidism continue levothyroxine weakness debility difficulty walking evaluated by Physical therapy recomme nded short-term rehab DVT prophylaxis Lovenox
--- NOTE | 2020-05-19 14:45 | P.CNID_ITS ---
History of Present Illness Data of Consult Service Date: 05/19/20 Requesting physician: Lucio Brown Primary Care Provider: MD SPIKE Hansen Reason for consult: possible endocarditis She presents to ER from home with weakness for last week and difficulty walking She has no respiratory symptoms but does have increased leg swelling She has no fever or chills She has no recent procedures or COVID exposure No one else is ill She has breast cancer diagnosed in 2011 and received lumpectomy and radiation She had recurrence she reports in 2016 and problems with lymphangitis left breast area and surgical drainage and revision per Plastic Surgery Dr Gar but no infections She was recently diagnosed with metastatic cancer,concern for abdominal and bone She was told by her oncologist Dr Romano that she had possible endocarditis per echo obtained to evaluate causes for swelling in legs Review of Systems Constitutional: Constitutional: Denies headache(s) and Denies weakness ENT: Denies dizziness and Denies headache(s) Musculoskeletal: Musculoskeletal: Denies numbness and Denies tingling Neurologic: Reports system reviewed and no additional complaints, except as documented, Denies Abnormal speech present, Denies dizziness, Denies headache(s), Denies numbness, Denies tingling and Denies weakness PMFSH Past Medical History Medical History Breast cancer Hx of radiation therapy Hypertension Hypothyroidism Liver cancer Neuropathy Sciatica Family History Family History Mother Colon cancer Surgical History Surgical History H/O knee surgery H/O left mastectomy History of bilateral mastectomy History of hip surgery History of left knee replacement (~09/2011) History of lumpectomy of left breast (~02/2012) Social History Social History Household Members: None Housing: Apartment Do you presently have visiting nurse or other home services: No Alcohol intake: never Smoking Status: Never smoker Smoked in Last 30 Days: No Use of substances other than those prescribed or required for medical reasons: No Currently Displaying Signs/Symptoms of Drug Intoxication Withdrawal: No Any prior treatment program specific to substance use: No Have you been hit, kicked, punched, or otherwise hurt by someone within the past year? If so, by whom?: No Do you feel safe in your current relationship?: No Is there a partner from a previous relationship who is making you feel unsafe now?: No Are you made to feel afraid or neglected: No Advance Directives: No Advance Directives Information Provided: Yes Advance Directives on File: No Do you have thoughts of harming others: None Do you have a plan to hurt others: No Plan Recently lost weight without trying: No service: No Current occupational status: retired [email or web address] Allergies Allergy/AdvReac Type Severity Reaction Status Date / Time codeine [CODEINE] Allergy Intermediate VOMITING Verified 05/17/20 11:29 Benadryl Allergy Unknown Unknown Uncoded 04/22/20 19:05 codeine Allergy Unknown vomiting Uncoded 10/10/18 00:00 Codeine Sulfate AdvReac Mild Vomiting Uncoded 04/22/20 19:07 Home Medications Medication Instructions Recorded Confirmed Type cyclobenzaprine 1 tab PO BEDTIME PRN 04/22/20 05/17/20 History levothyroxine 1 tab PO QAM 04/22/20 05/17/20 History cholecalciferol (vitamin D3) 125 mcg PO DAILY 05/17/20 05/17/20 History [Vitamin D3] Physical Exam 2 Vital Signs: Vital Signs: Vital Signs Temp Pulse Resp BP Pulse Ox 05/19/20 10:55 97.7 F 96 18 141/74 H 98 05/19/20 09:33 134/87 05/19/20 06:53 96.9 F 73 18 136/77 99 05/19/20 04:00 98.6 F 83 20 145/89 H 100 05/18/20 23:23 98.6 F 76 20 132/74 99 05/18/20 20:40 98.0 F 91 18 118/66 99 05/18/20 18:00 97.8 F 91 16 134/61 95 05/18/20 16:50 98.1 F 100 17 126/73 97 05/18/20 15:19 7.8 F L 112 H 16 129/74 97 Body Mass Index 29.8 Const: General: cooperative Orientation/consciousness: oriented to person, oriented to place and oriented to time HENMT: Head: Yes normal to inspection Ears: hearing grossly normal bilaterally General nose exam: Normal nasal mucous membranes and turbinates present Mouth: Normal oral and palatal mucosa present Teeth and gingiva: dentures Eyes: General: appearance normal, both eyes and all related structures Neck: Neck: Yes normal visual inspection, Yes full ROM and Yes no lymphadenopathy Resp: Effort & Inspection: normal respiratory effort Auscultation: clear to auscultation bilaterally Cardio: Rate: regular rate Rhythm: regular rhythm Heart sounds: no gallops, no murmurs and no rubs GI: Inspection: Yes normal to inspection Percussion: Yes normal to percussion Auscultation: normal bowel sounds : General: Yes no CVA tenderness Back/Spine/Pelvis: Back: no CVA tenderness Thoracic/Lumbar Spine: thoracic and lumbar spine normal to inspection Skin: General skin exam: no rashes or lesions noted Neuro: General: oriented to person, oriented to place, oriented to time and moves all extremities Speech: No Abnormal speech present Extrem: Other: plus 2 edema breast area implant right,left clear,no implant,post bilateral mastectomies Assessment and Plan (1) Mitral valve vegetation: Problem details: Patient with possible mitral valve thickening,possible vegetation,possible thrombus or possible malignancy in heart Status: Acute Continue Ceftriaxone and Vancomycin Stop IV antibiotics if blood cultures negative and further followup with Cardiology (2) Intractable back pain: Status: Acute (3) Metastatic disease: Qualifiers: Area of secondary neoplastic involvement: bone Qualified Code(s): C79.51 - Secondary malignant neoplasm of bone Status: Acute (4) Weakness: Status: Acute Results Labs CBC & Chem 7: 05/18/20 17:31 05/18/20 17:31 Labs: Short CBC 05/18/20 Range/Units 17:31 WBC 10.7 (4.8-10.8) X10*3/uL Hgb 13.9 (12.0-16.0) g/dl Hct 42.8 (37-47) % Plt Count 196 (160-400) X10*3/uL BMP 05/18/20 17:31 Sodium 136 Potassium 4.1 Chloride 105 Carbon Dioxide 22 BUN 33 H Creatinine 0.92 Calcium 8.1 L Liver Function 05/18/20 Range/Units 17:31 Total Bilirubin 0.6 (0.0-1.0) mg/dL Direct Bilirubin 0.2 (0.0-0.5) mg/dL AST 36 H (5-31) U/L ALT 25 (0-31) U/L Alkaline Phosphatase 167 H (39-117) U/L Albumin 3.1 L (3.5-5.0) g/dL
[2020-05-19] MEDS: cefTRIAXone sodium 1 GM in 0.9 % Sodium Chloride 50 ML IV (17:20)
[2020-05-20] VITALS (7 sets, daily range): BP systolic 144–190; BP diastolic 67–90; PULSE 73–93; RESP 18–20; TEMP 36.1–37; O2SAT 98–100
[2020-05-20] MEDS: 0.9 % Sodium Chloride 1,000 ML 75 ML IVCONT ×2 (01:23→12:41)
[2020-05-20] MEDS: Cyclobenzaprine HCl 10 MG TABLET PO (02:38)
[2020-05-20] MEDS: oxyCODONE HCl Immed Release 5 MG TABLET PO ×3 (04:14→23:07)
[2020-05-20] MEDS: Levothyroxine Sodium 150 MCG TABLET PO (06:23)
[2020-05-20 06:47] LABS: Vancomycin Trough 5.7 mcg/mL (10.0-20.0)
[2020-05-20] MEDS: Cholecalciferol (Vitamin D3) 25 MCG TABLET 125 MCG PO (08:13)
[2020-05-20] MEDS: dexAMETHasone 4 MG TABLET PO ×2 (08:13→21:09)
[2020-05-20] MEDS: Docusate Sodium 100 MG CAPSULE PO (08:13)
[2020-05-20] MEDS: Anastrozole 1 MG TABLET PO (08:28)
[2020-05-20 09:00] LABS: Anion Gap 13 (12-20); Blood Urea Nitrogen 30 mg/dL (9-16); Calcium 7.7 mg/dL (8.4-10.2); Carbon Dioxide 23 mmol/L (22-29); Chloride 107 mmol/L (96-108); Creatinine Clr Calc Pharmacy 70.5; Estimated Glomerular Filt Rate > 60; Glucose Random 113 mg/dL (60-115); Potassium 5.2 mmol/l (3.3-5.1); Sodium 138 mmol/L (135-145)
--- NOTE | 2020-05-20 15:27 | HO.PM.IMPN ---
Subjective Subjective Date of Service: 05/20/20 Interval History: Patient seen and examined at bedside patient denies any complaint Cardiovascular Cardiovascular: Denies dyspnea Respiratory Respiratory: Denies chest congestion and Denies dyspnea Neurologic Neurologic: Denies Abnormal speech present Physical Exam Vital Signs: Vital Signs: Last Vital Signs Temp 97.5 F 05/20/20 11:51 Pulse 73 05/20/20 11:51 Resp 18 05/20/20 11:51 BP 144/79 H 05/20/20 11:51 Pulse Ox 99 05/20/20 11:51 Body Mass Index 29.8 Const: General: anxious and tired appearing Orientation/consciousness: patient oriented x3 Resp: Auscultation: clear to auscultation bilaterally GI: Inspection: Yes normal to inspection Palpation (GI): nontender Neuro: General: patient oriented x3 Speech: No Abnormal speech present Objective Data Current Medications Generic Name Dose Route Start Last Admin Trade Name Freq PRN Reason Stop Dose Admin Anastrozole 1 mg 05/18/20 09:00 05/20/20 08:28 Anastrozole 1 Mg Tablet PO 1 mg DAILY TRISHA Administration Cyclobenzaprine HCl 10 mg 05/17/20 16:05 05/20/20 02:38 Cyclobenzaprine Hcl 10 Mg Tablet PO 10 mg BEDTIME PRN Administration Back Pain Dexamethasone 4 mg 05/17/20 21:00 05/20/20 08:13 Dexamethasone 4 Mg Tablet PO 4 mg BID TRISHA Administration Docusate Sodium 100 mg 05/18/20 09:00 05/20/20 08:13 Docusate Sodium 100 Mg Capsule PO 100 mg DAILY TRISHA Administration Enoxaparin Sodium 40 mg 05/18/20 22:00 05/19/20 21:08 Enoxaparin Sodium 40 Mg/0.4 Ml Syringe SUBCUT Not Given Q24H TRISHA Ceftriaxone Sodium 1 gm/ 50 mls @ 100 mls/hr 05/19/20 17:00 05/19/20 17:50 Sodium Chloride IV Infused Q24H TRISHA Infusion Sodium Chloride 1,000 mls @ 75 mls/hr 05/18/20 20:39 05/20/20 12:41 Ns IVCONT 75 mls/hr .[id number] TRISHA Administration Vancomycin HCl 750 mg/ 275 mls @ 183.333 mls/hr 05/20/20 10:00 05/20/20 12:41 Vancomycin HCl 500 mg/ Sodium IV Infused Chloride Q12H TRISHA Infusion Levothyroxine Sodium 150 mcg 05/18/20 06:30 05/20/20 06:23 Levothyroxine Sodium 150 Mcg Tablet PO 150 mcg DAILY@0630 [facility] Administration Oxycodone HCl 5 mg 05/17/20 16:05 05/20/20 04:14 Oxycodone Hcl Immed Release 5 Mg Tablet PO 5 mg Q6H PRN Administration Back Pain Pharmacy Consult 1 each 05/17/20 16:59 Consult Rx Perform Med Rec MISCELLANE ONCE PRN Consult order Polyethylene Glycol 17 gm 05/17/20 21:00 05/20/20 08:25 Polyethylene Glycol 3350 17 Gm Powd.Pack PO Not Given BID [facility] Sodium Chloride 3 ml 05/19/20 00:00 05/19/20 21:09 0.9 % Sodium Chloride Flush 3 Ml Syringe IVFLUSH 3 ml QSHIFT [facility] Administration Vitamin D 125 mcg 05/18/20 20:39 05/20/20 08:13 Cholecalciferol (Vitamin D3) 25 Mcg Tablet PO 125 mcg DAILY TRISHA Administration Labs CBC & Chem 7: 05/18/20 17:31 05/20/20 05:51 Labs: Laboratory Results - last 24 hr 05/20/20 05/20/20 05:51 05:51 Sodium 138 Potassium 5.2 H D Chloride 107 Carbon Dioxide 23 Anion Gap 13 BUN 30 H Creatinine 0.78 Estim Creat Clear Calc 70.5 Estimated GFR > 60 Random Glucose 113 Calcium 7.7 L Vancomycin Trough 5.7 L Microbiology Microbiology Results: Microbiology 05/18/20 17:31 Blood - Venous Blood Culture - Preliminary No growth after 24 hours. 05/18/20 17:31 Blood - Venous Blood Culture - Preliminary No growth after 24 hours. Assessment and Plan (1) Mitral valve vegetation: Problem details: Patient with possible mitral valve thickening,possible vegetation,possible thrombus or possible malignancy in heart Status: Acute (2) Intractable back pain: Status: Acute (3) Metastatic breast cancer: Status: Acute Assessment and Plan: 79-year-old female recently diagnosed with metastatic liver cancer with history of breast cancer in the past status post double mastectomy presented with weakness difficulty walking , patient has outpatient echocardiogram done and shows possible mitral valve vegetation Mitral valve vegetation rule out endocarditis versus metastasis continue IV antibiotic blood culture pending seen by id and Cardiology recommended continue IV antibiotic until culture came back Metastatic liver cancer with history of breast cancer being followed by Oncology Dr. Romano scheduled to have radiation on May 24 hypothyroidism continue levothyroxine weakness debility difficulty walking evaluated by Physical therapy recommended short-term rehab DVT prophylaxis Lovenox
[2020-05-20] MEDS: cefTRIAXone sodium 1 GM in 0.9 % Sodium Chloride 50 ML IV (17:31)
[2020-05-20] MEDS: 0.9 % Sodium Chloride Flush 3 ML SYRINGE IVFLUSH (21:08)
[2020-05-21] MEDS: LORazepam 2 MG/ML VIAL 1 MG IVPUSH (03:14)
[2020-05-21 03:25] VITALS: BP 176/85; PULSE 92; RESP 20; TEMP 37; O2SAT 97
[2020-05-21] MEDS: 0.9 % Sodium Chloride 1,000 ML 75 ML IVCONT (05:16)
[2020-05-21] MEDS: Levothyroxine Sodium 150 MCG TABLET PO (05:17)
[2020-05-21 07:35] VITALS: BP 155/82; PULSE 87; RESP 18; TEMP 36.3; O2SAT 100
[2020-05-21 07:50] LABS: Anion Gap 14 (12-20); Blood Urea Nitrogen 25 mg/dL (9-16); Calcium 7.6 mg/dL (8.4-10.2); Carbon Dioxide 21 mmol/L (22-29); Chloride 108 mmol/L (96-108); Creatinine Clr Calc Pharmacy 74.3; Estimated Glomerular Filt Rate > 60; Glucose Random 112 mg/dL (60-115); Potassium 4.6 mmol/l (3.3-5.1); Sodium 138 mmol/L (135-145)
[2020-05-21] MEDS: Anastrozole 1 MG TABLET PO (09:44)
[2020-05-21] MEDS: dexAMETHasone 4 MG TABLET PO ×2 (09:44)
[2020-05-21] MEDS: Cholecalciferol (Vitamin D3) 25 MCG TABLET 125 MCG PO (09:44)
[2020-05-21 10:47] VITALS: BP 155/82; PULSE 87; O2SAT 100
[2020-05-21 11:01] VITALS: BP 140/72; PULSE 101; RESP 20; TEMP 36.6; O2SAT 96
--- NOTE | 2020-05-21 12:41 | MHC.CM.PN ---
Pt is discharged today. [facility] able [facility]. STAR rating info provided for all area SNFs accepting [facility]. Referrals made at the Pts request to: [facility]st choice [facility]rd [facility] [place]. notified of STR reach and [facility] declined. CM will follow.
--- NOTE | 2020-05-21 13:08 | HO.PM.IMPN ---
Subjective Subjective Date of Service: 05/21/20 Interval History: patient seen and examined at bedside patient denies any complaint Constitutional Constitutional: Reports weakness Cardiovascular Cardiovascular: Denies dyspnea Respiratory Respiratory: Denies dyspnea Gastrointestinal Gastrointestinal: Denies vomiting Neurologic Neurologic: Denies Abnormal speech present and Reports weakness Physical Exam Vital Signs: Vital Signs: Last Vital Signs Temp 97.9 F 05/21/20 11:01 Pulse 101 H 05/21/20 11:01 Resp 20 05/21/20 11:01 BP 140/72 H 05/21/20 11:01 Pulse Ox 96 05/21/20 11:01 Body Mass Index 29.8 Const: General: anxious and tired appearing Orientation/consciousness: patient oriented x3 Resp: Auscultation: clear to auscultation bilaterally GI: Inspection: Yes normal to inspection Palpation (GI): nontender Neuro: General: patient oriented x3 Speech: No Abnormal speech present Objective Data Current Medications Generic Name Dose Route Start Last Admin Trade Name Freq PRN Reason Stop Dose Admin Anastrozole 1 mg 05/18/20 09:00 05/21/20 09:44 Anastrozole 1 Mg Tablet PO 1 mg DAILY TRISHA Administration Cyclobenzaprine HCl 10 mg 05/17/20 16:05 05/20/20 02:38 Cyclobenzaprine Hcl 10 Mg Tablet PO 10 mg BEDTIME PRN Administration Back Pain Dexamethasone 4 mg 05/17/20 21:00 05/21/20 09:44 Dexamethasone 4 Mg Tablet PO 4 mg BID TRISHA Administration Docusate Sodium 100 mg 05/18/20 09:00 05/21/20 09:44 Docusate Sodium 100 Mg Capsule PO Not Given DAILY TRISHA Enoxaparin Sodium 40 mg 05/18/20 22:00 05/20/20 21:10 Enoxaparin Sodium 40 Mg/0.4 Ml Syringe SUBCUT Not Given Q24H TRISHA Levothyroxine Sodium 150 mcg 05/18/20 06:30 05/21/20 05:17 Levothyroxine Sodium 150 Mcg Tablet PO 150 mcg DAILY@0630 TR[facility] Administration Oxycodone HCl 5 mg 05/17/20 16:05 05/20/20 23:07 Oxycodone Hcl Immed Release 5 Mg Tablet PO 5 mg Q6H PRN Administration Back Pain Pharmacy Consult 1 each 05/17/20 16:59 Consult Rx Perform Med Rec MISCELLANE ONCE PRN Consult order Polyethylene Glycol 17 gm 05/17/20 21:00 05/21/20 09:44 Polyethylene Glycol 3350 17 Gm Powd.Pack PO Not Given BID TRISHA Sodium Chloride 3 ml 05/19/20 00:00 05/21/20 09:31 0.9 % Sodium Chloride Flush 3 Ml Syringe IVFLUSH Not Given QSHIFT TRISHA Vitamin D 125 mcg 05/18/20 20:39 05/21/20 09:44 Cholecalciferol (Vitamin D3) 25 Mcg Tablet PO 125 mcg DAILY TRISHA Administration Labs CBC & Chem 7: 05/18/20 17:31 05/21/20 05:31 Microbiology Microbiology Results: Microbiology 05/18/20 17:31 Blood - Venous Blood Culture - Preliminary No growth after 48 hours. 05/18/20 17:31 Blood - Venous Blood Culture - Preliminary No growth after 48 hours. Assessment and Plan (1) Mitral valve vegetation: Status: Acute (2) Intractable back pain: Status: Acute (3) Metastatic breast cancer: Status: Acute Assessment and Plan: 79-year-old female recently diagnosed with metastatic liver cancer with history of breast cancer in the past status post double mastectomy presented with weakness difficulty walking , patient has outpatient echocardiogram done and shows possible mitral valve vegetation Mitral valve thickening with small ill density likely calcification Endocarditis ruled out will stop IV antibiotic blood culture negative for 48 hours seen by id and Cardiology recommended continue IV antibiotic until culture came back Metastatic liver cancer with history of breast cancer being followed by Oncology Dr. Romano scheduled to have radiation on May 24 Hypothyroidism continue levothyroxine weakness debility difficulty walking evaluated by Physical therapy recommended short-term rehab awaiting short-term rehab DVT prophylaxis Lovenox
[2020-05-21 15:00] VITALS: BP 133/74; PULSE 108; RESP 20; TEMP 36.2; O2SAT 98
--- NOTE | 2020-05-21 15:52 | MHC.CM.PN ---
DP TO [facility] VIA BLS. AUTH PENDING.
[2020-05-21] MEDS: 0.9 % Sodium Chloride Flush 3 ML SYRINGE IVFLUSH (16:56)
[2020-05-21 19:30] VITALS: BP 120/63; PULSE 100; RESP 18; TEMP 36.7; O2SAT 98
[2020-05-21 20:41] LABS: Vancomycin Trough 12.6 mcg/mL (10.0-20.0)
[2020-05-21] MEDS: oxyCODONE HCl Immed Release 5 MG TABLET PO (23:20)
[2020-05-22] VITALS: BP 154/91; PULSE 78; RESP 18; TEMP 35.9; O2SAT 97
[2020-05-22] MEDS: 0.9 % Sodium Chloride Flush 3 ML SYRINGE IVFLUSH ×2 (00:27→08:11)
[2020-05-22 03:31] VITALS: BP 161/80; PULSE 83; RESP 18; TEMP 36.4; O2SAT 97
[2020-05-22] MEDS: Levothyroxine Sodium 150 MCG TABLET PO (06:35)
[2020-05-22 06:56] VITALS: BP 158/93; PULSE 85; RESP 20; TEMP 36.6; O2SAT 99
[2020-05-22] MEDS: Anastrozole 1 MG TABLET PO (08:10)
[2020-05-22] MEDS: Cholecalciferol (Vitamin D3) 25 MCG TABLET 125 MCG PO (08:10)
[2020-05-22] MEDS: dexAMETHasone 4 MG TABLET PO (08:11)
[2020-05-22] MEDS: Docusate Sodium 100 MG CAPSULE PO (08:11)
[2020-05-22 11:18] VITALS: BP 131/68; PULSE 94; RESP 18; TEMP 36.6; O2SAT 97
--- NOTE | 2020-05-22 11:53 | MHC.CM.PN ---
Patient has been medically cleared for dc to SNF today. Patient will dc to [facility] today at 1 PM, via Daughter's transport (MD is aware and approves Daughter transporting).Second IMM addressed with Patient and original has been given to her and a copy has been placed on the chart.
--- NOTE | 2020-05-22 12:47 | PM.DS ---
DS: Providers Provider Date of admission: 05/18/20 17:32 Primary care physician: Mert Stone MD Consults: 05/19/20 08:12 Consult to Infectious Diseases Routine Consulting Provider: Jojo Cannon Reason for consultation: mitral vegetation 05/19/20 08:14 Consult to Cardiology Routine Consulting Provider: Toby Daigle Reason for consultation: mitral valve vegetation DS: Diagnosis Discharge Diagnosis (1) Mitral valve vegetation: Status: Acute (2) Intractable back pain: Status: Acute (3) Metastatic breast cancer: Status: Acute (4) Metastatic disease: Status: Acute (5) Weakness: Status: Acute DS: Summary Hospital Course Hospital Course: Admission note HPI 79-year-old female recently diagnosed with metastatic liver cancer presented with weakness generalized pain and difficulty walking, patient was recently diagnosed with metastatic liver cancer and being followed by oncology Dr. Romano, patient reported weakness was getting worse and patient was not able to stand last night , so brought to ER, patient was post to go to rehab but found to have small ill defined density on mitral valve possible vegetation, patient denies any fever chills, patient denies any chest pain or shortness of breath, in the ER patient was given 1 dose of Vanco and Rocephin and inpatient admission was requested to rule out endocarditis Hospital course The patient was admitted to the hospital for evaluation of worsening weakness and increased pain. An echo was done showing possible vegetations concerning for endocarditis. The patient was started on broad-spectrum antibiotics and evaluated by Cardiology and Infectious Disease. Blood cultures remain negative during the hospital stay and the patient had no symptoms of fever to suggest infection. Dr. Cannon suggested discontinue IV antibiotics. Of the abdomen and pelvis was consistent with metastatic liver disease and bone metastasis. She has a history of breast cancer. She was evaluated by Dr. Romano with plan for outpatient radiation therapy in May 24. She was evaluated by Physical therapy who recommended short-term rehab. Time Spent with Patient Time attestation: Total time spent providing and/or coordinating discharge services: Physical Exam Vital Signs: Vital Signs: Last Vital Signs Temp 98 F 05/22/20 11:18 Pulse 94 05/22/20 11:18 Resp 18 05/22/20 11:18 BP 131/68 05/22/20 11:18 Pulse Ox 97 05/22/20 11:18 Body Mass Index 29.8 Constitutional : Alert, oriented, not in distress Neck : Normal inspection, Supple Cardiovascular : RRR, S1 S2, no lower extremity edema Respiratory : Good bilateral air entry, no crackles, wheezes or rhonchi Gastrointestinal: soft, lax, Normal bowel sounds, Non tender Skin : Warm/Dry, No rash Neurological : Alert & oriented x3, No focal deficit DS: Data Data Completed and Pending Labs on day of discharge: 05/17/20 11:44 IV insert/maintain .Now 05/17/20 11:45 US venous duplex LE BI Stat 05/17/20 12:48 Basic Metabolic Panel Stat Complete Blood Count Auto Diff Stat Liver Panel Stat Magnesium Stat Prothrombin Time INR Stat 05/17/20 15:37 oxyCODONE HCl Immed Release [Roxicodone] 5 mg PO ONCE ONE 05/17/20 16:06 ED Diet NOW 05/18/20 01:09 ED Diet NOW 05/18/20 09:06 SARS COV2 PCR INHOUSE Stat 05/18/20 09:54 ED Diet NOW 05/18/20 14:00 CA echo transthoracic complete Routine 05/18/20 15:55 ED Diet NOW 05/18/20 16:45 vancomycin HCL 750 mg vancomycin HCL 500 mg 0.9 % Sodium Chloride [Ns] 250 ml IV ONCE 05/18/20 16:48 cefTRIAXone sodium [Rocephin] 2 gm 0.9 % Sodium Chloride [Ns] 50 ml IV ONCE 05/18/20 17:28 Transfer Order Routine 05/18/20 17:31 B Type Natriuretic Peptide Stat Basic Metabolic Panel Stat Complete Blood Count Auto Diff Stat Lactic Acid Stat Liver Panel Stat SLIDE REVIEW Stat 05/18/20 17:34 cefTRIAXone sodium [Rocephin] 2 gm .ROUTE .STK-MED ONE 05/18/20 18:46 vancomycin HCL 500 mg IV .STK-MED ONE vancomycin HCL 750 mg IV .STK-MED ONE 05/18/20 Dinner Regular Diet 05/18/20 20:39 0.9 % Sodium Chloride [Ns] 1,000 ml IVCONT 75 mls/hr 05/18/20 20:39 Cont. Telemetry w/Vital Sign limit Q4HR IV insert/maintain Q4HR IV insert/maintain Q4HR Intake and Output QSHIFTE Intake and Output QSHIFTE Pulse Oximetry Q4HR Vital Signs Q4HR Vital Signs Q4HR 05/19/20 05:00 vancomycin HCL 1,000 mg 0.9 % Sodium Chloride [Ns] 250 ml IV Q12H 05/19/20 06:22 vancomycin HCL 750 mg IV .STK-MED ONE 05/19/20 07:00 vancomycin HCL 750 mg 0.9 % Sodium Chloride [Ns] 250 ml IV Q12H 05/19/20 17:00 cefTRIAXone sodium [Rocephin] 1 gm 0.9 % Sodium Chloride [Ns] 50 ml IV Q24H 05/19/20 17:11 cefTRIAXone sodium [Rocephin] 1 gm .ROUTE .STK-MED ONE 05/19/20 18:14 vancomycin HCL 750 mg IV .STK-MED ONE 05/20/20 05:51 Basic Metabolic Panel Routine Vancomycin Trough Routine 05/20/20 08:08 vancomycin HCL 750 mg IV .STK-MED ONE 05/20/20 10:00 vancomycin HCL 750 mg vancomycin HCL 500 mg 0.9 % Sodium Chloride [Ns] 250 ml IV Q12H 05/20/20 17:29 cefTRIAXone sodium [Rocephin] 1 gm .ROUTE .STK-MED ONE 05/20/20 20:59 vancomycin HCL 500 mg IV .STK-MED ONE vancomycin HCL 750 mg IV .STK-MED ONE 05/21/20 02:58 LORazepam [Ativan] 1 mg IVPUSH ONCE ONE 05/21/20 05:31 Basic Metabolic Panel Routine 05/21/20 19:57 Vancomycin Trough Stat Laboratory Last Values WBC 10.7 X10*3/uL (4.8-10.8) 05/18/20 17:31 RBC 4.93 X10*6/uL (4.20-5.50) 05/18/20 17:31 Hgb 13.9 g/dl (12.0-16.0) 05/18/20 17:31 Hct 42.8 % (37-47) 05/18/20 17:31 MCV 86.8 fL (80-98) 05/18/20 17:31 MCH 28.2 pg (27.0-33.0) 05/18/20 17:31 MCHC 32.5 g/dl (31.0-35.0) 05/18/20 17:31 RDW 15.5 % (11.0-16.0) 05/18/20 17:31 Plt Count 196 X10*3/uL (160-400) 05/18/20 17: MPV 9.4 fL (9.4-12.3) 05/18/20 17: Immature Gran % (Auto) 1.3 % (0.0-0.4) H 05/18/20 17: Neut % (Auto) 88.2 % (45-73) H 05/18/20 17: Lymph % (Auto) 6.0 % (20-40) L 05/18/20 17: Knox % (Auto) 4.4 % (2-11) 05/18/20 17: Eos % (Auto) 0.0 % (0-4) 05/18/20 17: Baso % (Auto) 0.1 % (0-2) 05/18/20 17: Lymph # (Auto) 0.6 X10*3/uL (1.2-4.9) L 05/18/20 17: Knox # (Auto) 0.5 X10*3/uL (0.1-1.2) 05/18/20 17: Eos # (Auto) 0.0 X10*3/uL (0.0-0.4) 05/18/20 17: Baso # (Auto) 0.0 X10*3/uL (0.0-0.2) 05/18/20 17:31 Abs Immat Gran (auto) 0.14 X10*3/uL (0.00-0.03) H 05/18/20 17: Absolute Neuts (auto) 9.5 X10*3/uL (2.0-8.3) H 05/18/20 17: Absolute Nucleated RBC 0.000 X10*3/uL (0.0-0.012) 05/18/20 17: Nucleated RBC % (auto) 0.0 /100WBC (0.0-0.2) 05/18/20 17: Smear Tech's Comments VERIFIED 05/18/20 17: PT 12.0 SEC (10.8-13.0) 05/17/20 12:48 INR 1.0 (0.9-1.1) 05/17/20 12:48 Sodium 138 mmol/L (135-145) 05/21/20 05:31 Potassium 4.6 mmol/l (3.3-5.1) 05/21/20 05:31 Chloride 108 mmol/L (96-108) 05/21/20 05:31 Carbon Dioxide 21 mmol/L (22-29) L 05/21/20 05:31 Anion Gap 14 (12-20) 05/21/20 05:31 BUN 25 mg/dL (9-16) H 05/21/20 05:31 Creatinine 0.74 mg/dL (0.5-1.4) 05/21/20 05:31 Estim Creat Clear Calc 74.3 05/21/20 05:31 Estimated GFR > 60 05/21/20 05:31 Random Glucose 112 mg/dL (60-115) 05/21/20 05:31 Lactic Acid 1.5 mmol/L (0.5-2.0) 05/18/20 17:31 Calcium 7.6 mg/dL (8.4-10.2) L 05/21/20 05:31 Magnesium 2.2 mg/dL (1.6-2.6) 05/17/20 12:48 Total Bilirubin 0.6 mg/dL (0.0-1.0) 05/18/20 17:31 Direct Bilirubin 0.2 mg/dL (0.0-0.5) 05/18/20 17:31 AST 36 U/L (5-31) H 05/18/20 17:31 ALT 25 U/L (0-31) 05/18/20 17:31 Alkaline Phosphatase 167 U/L (39-117) H 05/18/20 17:31 B-Natriuretic Peptide 48 pg/mL (<100) 05/18/20 17:31 Total Protein 5.7 g/dL (6.5-8.0) L 05/18/20 17:31 Albumin 3.1 g/dL (3.5-5.0) L 05/18/20 17:31 Vancomycin Trough 12.6 mcg/mL (10.0-20.0) 05/21/20 19:57 Coronavirus (PCR) NEGATIVE (Negative) 05/18/20 09:06 Preliminary micro results at discharge 05/18/20 17:31 Blood Culture - Preliminary Blood - Venous No growth after 48 hours. 05/18/20 17:31 Blood Culture - Preliminary Blood - Venous No growth after 48 hours. Discharge Plan Discharge Patient Disposition: [facility] Referrals: [facility] [Outside] Mert Stone MD [Primary Care Provider] - Discharge Medications: New oxycodone 5 mg tablet 5 mg PO Q6H PRN (Reason: pain) Qty: 10 RF: 0 Continued (DME) miscellaneous medical supply Misc See Rx Instructions .ROUTE .MEDSUPPLY Qty: 1 RF: 0 (DME) Ultra-Light Rollator Misc See Rx Instructions .ROUTE .MEDSUPPLY Qty: 1 RF: 0 (DME) walker Misc See Rx Instructions .ROUTE .MEDSUPPLY Qty: 1 RF: 0 (DME) walker Misc See Rx Instructions .ROUTE .MEDSUPPLY Qty: 1 RF: 0 (DME) miscellaneous medical supply Misc See Rx Instructions .ROUTE .MEDSUPPLY Qty: 1 RF: 0 anastrozole 1 mg Tablet 1 mg PO DAILY Qty: 30 RF: 3 dexamethasone [Decadron] 4 mg Tablet 4 mg PO BID Qty: 60 RF: 0 oxycodone 5 mg Capsule 5 mg PO Q6H PRN (Reason: Back Pain) Qty: 60 RF: 0 cholecalciferol (vitamin D3) [Vitamin D3] 125 mcg (5,000 unit) Tablet 125 mcg PO DAILY RF: 0 cyclobenzaprine 10 mg tablet 1 tab PO BEDTIME PRN (Reason: Back Pain) RF: 0 levothyroxine 150 mcg tablet 1 tab PO QAM RF: 0 polyethylene glycol 3350 17 gram Powder In Packet 17 g PO BID Qty: 100 RF: 0 docusate sodium [Colace] 100 mg capsule 100 mg PO DAILY Qty: 90 RF: 0 Discharge Orders: Discharge Order (Routine); Ordered 05/22/20 Ordered By: Gonsalo Foreman Diet: advance to your usual diet Activity on Discharge: As tolerated Patient Instructions: Weakness (ED) Visit Report Forms: Patient Portal Discharge page Care Plan Goals: See below Health Concerns: Read below Plan of Treatment: You were admitted to the hospital for evaluation of increased weakness and lower back pain. Evaluated by echo which showed mitral valve thickening. Evaluated by Cardiology who recommended treatment for possible valve infection. Your blood cultures remain negative and you were evaluated by infectious disease specialist who recommended to discontinue antibiotic as your cultures remain negative. Consider repeating blood cultures in few weeks to confirm negative test. You were evaluated by Dr. Romano for metastatic cancer what plan for radiation therapy on May 24. To continue with physical therapy at [facility] Use pain medication as needed
== END 2020-05-22 14:01 | disposition skilled nursing facility (03) | DRG 552 ==
LOC: HO.ED 05-18 17:22 → HO.IMC 05-18 17:45
PROVIDERS: Internal Medicine; Nurse Practitioner Family; Student in an Organized Health Care Education/Training Program; Admitting Provider Internal Medicine; Emergency Provider Emergency Medicine; PCP Internal Medicine; Visit Provider Student in an Organized Health Care Education/Training Program
DX: M54.9 Dorsalgia, unspecified (principal); C78.7 Secondary malignant neoplasm of liver and intrahepatic bile duct; C79.51 Secondary malignant neoplasm of bone; R53.1 Weakness; E03.9 Hypothyroidism, unspecified; Z96.652 Presence of left artificial knee joint; Z90.13 Acquired absence of bilateral breasts and nipples; Z88.5 Allergy status to narcotic agent; Z20.828 Contact with and (suspected) exposure to other viral communicable diseases; Z85.3 Personal history of malignant neoplasm of breast; Z79.890 Hormone replacement therapy; Z79.891 Long term (current) use of opiate analgesic; Z79.899 Other long term (current) drug therapy
CPT/HCPCS: 36415; 80048; 80076; 80202; 83605; 83735; 83880; 85025; 85610; 87040; 93306; 93970; 96365; 96367; 97110; 97116; 97162; 99285; J0696; J1650; J2060; J3370; J8540; U0003

== ENCOUNTER 2020-06-08 21:51 | Inpatient (IN) | payer MEDICARE, SELFPAY ==
--- NOTE | 2020-06-08 22:01 | ECG_ITS ---
Test Reason : SOB Blood Pressure : / mmHG Vent. Rate : 118 BPM Atrial Rate : 118 BPM P-R Int : 130 ms QRS Dur : 098 ms QT Int : 328 ms P-R-T Axes : 034 031 -08 degrees QTc Int : 459 ms Sinus tachycardia with Premature atrial complexes Nonspecific T wave abnormality Abnormal ECG When compared with ECG of 27-OCT-2012 15:03, Premature atrial complexes are now Present Vent. rate has increased BY 47 BPM Referred By: Aquilino Osman Electronically Signed By:DANA MUÑIZ MD
--- NOTE | 2020-06-08 22:04 | XR_ITS ---
EXAMINATION: XR CHEST CLINICAL INFORMATION: 80-year-old female patient with shortness of breath. Per chart: Metastatic breast cancer. COMPARISON: PET/CT fusion scan on 05/11/2020. (Widespread metastatic disease in the liver, lung, lymph nodes, and bone). CT the chest on 04/23/2020. TECHNIQUE: AP portable semierect view of the chest was obtained. The time of examination was 10:10 PM. FINDINGS: The osteoblastic metastases and pulmonary metastatic nodules are better evaluated on the recent CT exam of the chest. A vague lung mass measuring 3.2 cm is superimposed upon the liver in the vicinity of the right lower lobe. Scattered reticular opacities in the left upper and lower lobes as well as the right lower lobe were present on the CT exam in April. There is no evidence of pleural effusion or acute airspace disease. XR/XR chest 1V IMPRESSION: No consolidating pneumonia. Known metastatic disease.
--- NOTE | 2020-06-08 22:11 | ED_ITS ---
HPI - Weakness General Chief complaint: Dyspnea Stated complaint: INCREASING WEAKNESS Time Seen by Provider: 06/08/20 22:01 Source: patient and EMS Mode of arrival: EMS History of Present Illness HPI Narrative: 72-year-old female chief complaint of generalized weakness. States last week was having bright red blood per rectum which resolved and had episode today. Mild generalized abdominal pain. Without nausea or vomiting. Denies chest pain denies shortness of breath or cough. No fevers or chills. Denies urinary symptoms. Abdominal pain described as dull nonradiating generalized to the lower abdomen denies syncope or dizziness Related Data Home Medications Medication Instructions Recorded Confirmed cyclobenzaprine 1 tab PO BEDTIME PRN 04/22/20 06/09/20 Previous Rx's Medication Instructions Recorded docusate sodium [Colace] 100 mg PO DAILY #90 cap 04/24/20 polyethylene glycol 3350 17 g PO BID #100 ea 04/24/20 anastrozole 1 mg PO DAILY #30 tab 04/30/20 dexamethasone [Decadron] 4 mg PO BID #60 tab 04/30/20 miscellaneous medical supply #1 ea 05/11/20 walker #1 ea 05/12/20 oxycodone 5 mg PO Q6H PRN #60 cap 06/01/20 Allergies Allergy/AdvReac Type Severity Reaction Status Date / Time codeine [CODEINE] Allergy Intermediate VOMITING Verified 06/08/20 22:21 Benadryl Allergy Unknown Unknown Uncoded 04/22/20 19:05 codeine Allergy Unknown vomiting Uncoded 10/10/18 00:00 Codeine Sulfate AdvReac Mild Vomiting Uncoded 04/22/20 19:07 Review of Systems Review of Systems: Constitutional : No Weight loss, No Fever, No Chills, No Night Sweats, No Fatigue, No Malaise ENT/Mouth : No Hearing loss, No Ear Pain, No Nasal Congestion, No Sinus Pain, No Hoarseness, No sore throat, No Rhinorrhea, No Swallowing Difficulty Eyes: No Eye Pain, No Swelling, No Redness, No Foreign Body, No Discharge, No Vision Changes Cardiovascular : No Chest Pain, No SOB, No Dyspnea on Exertion, No Orthopnea, No Edema, No Palpitations Respiratory : No Cough, No Sputum, No Wheezing, No Smoke Exposure, No Dyspnea Gastrointestinal : No Nausea, No Vomiting, No Diarrhea, No Constipation, positive abdominal Pain, No Hematochezia, No Melena Genitourinary : no irregular bleeding, No Dysuria, No Urinary Frequency, No Hematuria, No Urinary Incontinence, No Urgency, No Flank Pain, No Urinary Flow Changes, No Hesitancy Musculoskeletal : No joint pain, No Myalgias, No Joint Swelling Skin : No Skin Lesions, No rash Neuro : No Weakness, No Numbness, No Paresthesias, No Loss of Consciousness, No Dizziness, No Headache Psych : No Anxiety/Panic, No Depression, No SI/HI/AH/VH, No Social Issues, Heme/Lymph: No Bruising, positive rectal Bleeding,No Lymphadenopathy Endocrine : No Polyuria, No Polydipsia, No Temperature Intolerance [facility] Past Medical History Medical History Breast cancer Hx of radiation therapy Hypertension Hypothyroidism Liver cancer Metastatic breast cancer Metastatic disease Mitral valve vegetation Neuropathy Sciatica Surgical History H/O knee surgery H/O left mastectomy History of bilateral mastectomy History of hip surgery History of left knee replacement (~09/2011) History of lumpectomy of left breast (~02/2012) Family History Family History Mother Colon cancer Social History Social History Household Members: None Housing: Apartment Alcohol intake: unknown Smoking Status: Unknown if ever smoked Use of substances other than those prescribed or required for medical reasons: Unknown Advance Directives: No Advance Directives Information Provided: Yes service: No Current occupational status: retired Physical Exam Vital Signs: Vital Signs: Last Vital Signs Temp 97.5 F 06/09/20 02:30 Pulse 114 H 06/09/20 02:30 Resp 26 H 06/09/20 02:30 BP 110/61 06/09/20 02:30 Pulse Ox 98 06/09/20 02:30 Body Mass Index 32.5 Interpretation of hypoxia of 73% on room air. Interpreted by me. Abnormal. Once placed on facial mask high-flow 15 liters/minute mass, interpretation of pulse ox 95%, normal Appearance: Alert. Oriented X3. No acute distress. Eyes: Pupils equal, round and reactive to light. ENT: Pharynx normal. Neck: Normal inspection. Neck supple. No lymph nodes noted. No crepitus CVS: Normal heart rate and rhythm. Pulses normal. Normal S1 and S2 Respiratory: No respiratory distress. Breath sounds normal. No Wheezing. No rales Abdomen: Soft and positive mid to left tender. No rigidity. No distention. good BS x4 Skin: Skin warm and dry. Normal skin color. Normal skin turgor. Extremities: No lower extremity edema. Neurovascular intact to all extremities. No Lacerations. No Rash Neuro: Oriented X 3. No motor deficit. No sensory deficit. Moving all exte rmities. No slurred speech. Course Course Course Narrative: 2240 Also called bedside secondary to hypoxia. Patient was placed immediately on oxygen which then pulse ox improved. Patient not in any respiratory distress however will pursue pulmonary embolism secondary to history of cancer and hypoxia Reevaluation(s) Reevaluation #1: Re-evaluation the patient, comfortable on facial mask however was removed mask patient oxygen level does decrease Time: 23:44 Time: 00:37 Reevaluation #3: Patient switch from face mask to high-flow oxygen. Tolerating much better. Laboratory work was hemolyzed redrawn pending CT scans Additional Reevaluation(s): Prior to the pressure at 03:30 I had performed a focused exam with minimal respiratory distress MDM - Weakness MDM Narrative Medical decision making narrative: 80-year-old female with a history of breast and liver cancer admitted to the hospital secondary to respiratory distress, hypoxia, COVID positive, bilateral PE with saddlel emboli. And mild rectal bleed. I spoke with hospitalist Dr. Ford will accept the patient as well as in our discussion we agreed upon that no tPA with a saddle embolus secondary to maintaining oxygenation and not in overt heart failure. Decision was made to give IV heparin even the patient was occult positive as opposed to Lovenox so that we could better control in case she starts to hemorrhage. Patient aware critical state Differential Diagnosis Differential diagnosis: Likely anemia (Rectal bleeding, diverticulitis, obstruction, sepsis) Medical Records Attestation: I reviewed the patient's medical records. Lab Data Attestation: I reviewed the patient's lab results. Result diagrams: 06/08/20 22:41 06/09/20 00:16 Labs: Lab Results 06/08/20 06/08/20 06/08/20 Range/Units 22:40 22:41 22:41 WBC 4.0 L (4.8-10.8) X10*3/uL RBC 4.99 (4.20-5.50) X10*6/uL Hgb 14.2 (12.0-16.0) g/dl Hct 42.1 (37-47) % MCV 84.4 (80-98) fL MCH 28.5 (27.0-33.0) pg MCHC 33.7 (31.0-35.0) g/dl RDW 16.5 H (11.0-16.0) % Plt Count 173 (160-400) X10*3/uL MPV 10.0 (9.4-12.3) fL Immature Gran % (Auto) Cancelled Neut % (Auto) Cancelled Lymph % (Auto) Cancelled Ellis % (Auto) Cancelled Eos % (Auto) Cancelled Baso % (Auto) Cancelled Lymph # (Auto) Cancelled Ellis # (Auto) Cancelled Eos # (Auto) Cancelled Baso # (Auto) Cancelled Abs Immat Gran (auto) Cancelled Absolute Neuts (auto) Cancelled Absolute Nucleated RBC 0.000 (0.0-0.012) X10*3/uL Nucleated RBC % (auto) 0.0 (0.0-0.2) /100WBC Neutrophils % (Manual) 59 (45-73) % Band Neutrophils % 34 H (3-5) % Lymphocytes % (Manual) 2 L (20-40) % Monocytes % (Manual) 3 (2-11) % Metamyelocytes % 2 % Abs Neuts (Manual) 3.7 (2.2-7.9) X10*3/uL Lymphocytes # (Manual) 0.1 L (0.6-4.8) X10*3/uL Monocytes # (Manual) 0.1 (0.0-1.2) X10*3/uL Metamyelocytes # 0.1 X10*3/uL Nucleated RBCs 1 H (0-0) /100WBC Toxic Granulation PRESENT Toxic Vacuolation PRESENT Platelet Estimate NORMAL (NORMAL) Plt Morphology Comment NORMAL RBC Morphology NOTED Polychromasia 1+ Acanthocytes (Spur) 1+ PT (10.8-13.0) SEC INR (0.9-1.1) APTT (24.1-38.0) SEC Sodium Cancelled Potassium Cancelled Chloride Cancelled Carbon Dioxide Cancelled Anion Gap Cancelled BUN Cancelled Creatinine Cancelled Estim Creat Clear Calc Cancelled Estimated GFR Cancelled Random Glucose Cancelled Lactic Acid (0.5-2.0) mmol/L Lactic Acid Fup @ 2Hr (0.5-2.0) mmol/L Calcium Cancelled Total Bilirubin Cancelled Direct Bilirubin Cancelled AST Cancelled ALT Cancelled Alkaline Phosphatase Cancelled Troponin I High Sens (<3.5-17.0) ng/L Total Protein Cancelled Albumin Cancelled Lipase Cancelled Stool Occult Blood (NEG) Coronavirus (PCR) POSITIVE A (Negative) Influenza Type A (PCR) NEGATIVE (Negative) Influenza Type B (PCR) NEGATIVE (Negative) RSV RNA Qual (PCR) NEGATIVE (Negative) Blood Type Antibody Screen 06/08/20 06/08/20 06/08/20 Range/Units 22:41 22:41 22:41 WBC (4.8-10.8) X10*3/uL RBC (4.20-5.50) X10*6/uL Hgb (12.0-16.0) g/dl Hct (37-47) % MCV (80-98) fL MCH (27.0-33.0) pg MCHC (31.0-35.0) g/dl RDW (11.0-16.0) % Plt Count (160-400) X10*3/uL MPV (9.4-12.3) fL Immature Gran % (Auto) Neut % (Auto) Lymph % (Auto) Ellis % (Auto) Eos % (Auto) Baso % (Auto) Lymph # (Auto) Ellis # (Auto) Eos # (Auto) Baso # (Auto) Abs Immat Gran (auto) Absolute Neuts (auto) Absolute Nucleated RBC (0.0-0.012) X10*3/uL Nucleated RBC % (auto) (0.0-0.2) /100WBC Neutrophils % (Manual) (45-73) % Band Neutrophils % (3-5) % Lymphocytes % (Manual) (20-40) % Monocytes % (Manual) (2-11) % Metamyelocytes % % Abs Neuts (Manual) (2.2-7.9) X10*3/uL Lymphocytes # (Manual) (0.6-4.8) X10*3/uL Monocytes # (Manual) (0.0-1.2) X10*3/uL Metamyelocytes # X10*3/uL Nucleated RBCs (0-0) /100WBC Toxic Granulation Toxic Vacuolation Platelet Estimate (NORMAL) Plt Morphology Comment RBC Morphology Polychromasia Acanthocytes (Spur) PT 14.4 H (10.8-13.0) SEC INR 1.2 H (0.9-1.1) APTT 28.0 (24.1-38.0) SEC Sodium Potassium Chloride Carbon Dioxide Anion Gap BUN Creatinine Estim Creat Clear Calc Estimated GFR Random Glucose Lactic Acid 2.1 H* (0.5-2.0) mmol/L Lactic Acid Fup @ 2Hr (0.5-2.0) mmol/L Calcium Total Bilirubin Direct Bilirubin AST ALT Alkaline Phosphatase Troponin I High Sens 26.5 H (<3.5-17.0) ng/L Total Protein Albumin Lipase Stool Occult Blood (NEG) Coronavirus (PCR) (Negative) Influenza Type A (PCR) (Negative) Influenza Type B (PCR) (Negative) RSV RNA Qual (PCR) (Negative) Blood Type Antibody Screen 06/08/20 06/08/20 06/09/20 Range/Units 22:50 23:02 00:16 WBC (4.8-10.8) X10*3/uL RBC (4.20-5.50) X10*6/uL Hgb (12.0-16.0) g/dl Hct (37-47) % MCV (80-98) fL MCH (27.0-33.0) pg MCHC (31.0-35.0) g/dl RDW (11.0-16.0) % Plt Count (160-400) X10*3/uL MPV (9.4-12.3) fL Immature Gran % (Auto) Neut % (Auto) Lymph % (Auto) Ellis % (Auto) Eos % (Auto) Baso % (Auto) Lymph # (Auto) Ellis # (Auto) Eos # (Auto) Baso # (Auto) Abs Immat Gran (auto) Absolute Neuts (auto) Absolute Nucleated RBC (0.0-0.012) X10*3/uL Nucleated RBC % (auto) (0.0-0.2) /100WBC Neutrophils % (Manual) (45-73) % Band Neutrophils % (3-5) % Lymphocytes % (Manual) (20-40) % Monocytes % (Manual) (2-11) % Metamyelocytes % % Abs Neuts (Manual) (2.2-7.9) X10*3/uL Lymphocytes # (Manual) (0.6-4.8) X10*3/uL Monocytes # (Manual) (0.0-1.2) X10*3/uL Metamyelocytes # X10*3/uL Nucleated RBCs (0-0) /100WBC Toxic Granulation Toxic Vacuolation Platelet Estimate (NORMAL) Plt Morphology Comment RBC Morphology Polychromasia Acanthocytes (Spur) PT (10.8-13.0) SEC INR (0.9-1.1) APTT (24.1-38.0) SEC Sodium 132 L Potassium 4.3 Chloride 103 Carbon Dioxide 21 L Anion Gap 12 BUN 29 H Creatinine 1.10 Estim Creat Clear Calc 49.6 Estimated GFR 48 Random Glucose 138 H Lactic Acid (0.5-2.0) mmol/L Lactic Acid Fup @ 2Hr (0.5-2.0) mmol/L Calcium 7.0 L D Total Bilirubin Direct Bilirubin AST ALT Alkaline Phosphatase Troponin I High Sens (<3.5-17.0) ng/L Total Protein Albumin Lipase Stool Occult Blood POS (NEG) Coronavirus (PCR) (Negative) Influenza Type A (PCR) (Negative) Influenza Type B (PCR) (Negative) RSV RNA Qual (PCR) (Negative) Blood Type O Positive Antibody Screen NEGATIVE 06/09/20 06/09/20 06/09/20 Range/Units 00:16 00:16 01:23 WBC (4.8-10.8) X10*3/uL RBC (4.20-5.50) X10*6/uL Hgb (12.0-16.0) g/dl Hct (37-47) % MCV (80-98) fL MCH (27.0-33.0) pg MCHC (31.0-35.0) g/dl RDW (11.0-16.0) % Plt Count (160-400) X10*3/uL MPV (9.4-12.3) fL Immature Gran % (Auto) Neut % (Auto) Lymph % (Auto) Ellis % (Auto) Eos % (Auto) Baso % (Auto) Lymph # (Auto) Ellis # (Auto) Eos # (Auto) Baso # (Auto) Abs Immat Gran (auto) Absolute Neuts (auto) Absolute Nucleated RBC (0.0-0.012) X10*3/uL Nucleated RBC % (auto) (0.0-0.2) /100WBC Neutrophils % (Manual) (45-73) % Band Neutrophils % (3-5) % Lymphocytes % (Manual) (20-40) % Monocytes % (Manual) (2-11) % Metamyelocytes % % Abs Neuts (Manual) (2.2-7.9) X10*3/uL Lymphocytes # (Manual) (0.6-4.8) X10*3/uL Monocytes # (Manual) (0.0-1.2) X10*3/uL Metamyelocytes # X10*3/uL Nucleated RBCs (0-0) /100WBC Toxic Granulation Toxic Vacuolation Platelet Estimate (NORMAL) Plt Morphology Comment RBC Morphology Polychromasia Acanthocytes (Spur) PT (10.8-13.0) SEC INR (0.9-1.1) APTT (24.1-38.0) SEC Sodium Potassium Chloride Carbon Dioxide Anion Gap BUN Creatinine Estim Creat Clear Calc Estimated GFR Random Glucose Lactic Acid (0.5-2.0) mmol/L Lactic Acid Fup @ 2Hr 1.5 (0.5-2.0) mmol/L Calcium Total Bilirubin 0.4 Direct Bilirubin 0.3 AST 27 ALT 27 Alkaline Phosphatase 76 D Troponin I High Sens (<3.5-17.0) ng/L Total Protein 4.1 L D Albumin 2.1 L D Lipase 10 Stool Occult Blood (NEG) Coronavirus (PCR) (Negative) Influenza Type A (PCR) (Negative) Influenza Type B (PCR) (Negative) RSV RNA Qual (PCR) (Negative) Blood Type Antibody Screen ECG Data Attestation: I personally reviewed and interpreted this ECG as follows: Interpretation: Tachycardia, sinus tachycardia, rate 118. Normal axis. Normal OK intervals. No ST segment changes Critical Care Time Critical Care Time Critical Care Time: Yes Total Critical Care Time: 35 Attestation: I attest from my critical care time Discharge Plan Discharge Clinical Impression: Pulmonary embolism, COVID-19, Acute saddle pulmonary embolism, Colitis with rectal bleeding, Hypoxia, Sepsis, Acute GI bleeding, Fracture of ramus of right pubis, Closed sacral fracture Patient Disposition: Admitted As Inpatient Interventions: Admission Worksheet (ED) Last Done: 06/09/20 03:57
[2020-06-08 22:22] VITALS: BP 102/34; BP 136/84; PULSE 127; PULSE 78; RESP 34; TEMP 36.1; O2SAT 73; O2SAT 80; BMI 32.5
[2020-06-08 22:54] LABS: Hematocrit 42.1 % (37-47); Hemoglobin 14.2 g/dl (12.0-16.0); Mean Corpuscular HGB Conc 33.7 g/dl (31.0-35.0); Mean Corpuscular Hemoglobin 28.5 pg (27.0-33.0); Mean Corpuscular Volume 84.4 fL (80-98); Platelet Count 173 X10*3/uL (160-400); Red Blood Count 4.99 X10*6/uL (4.20-5.50); Red Cell Distribution Width 16.5 % (11.0-16.0)
[2020-06-08 22:56] LABS: WBC ABN SCTR FOR CBC 1
[2020-06-08] MEDS: 0.9 % Sodium Chloride 1,000 ML 999 ML IVCONT (23:00)
[2020-06-08 23:01] LABS: INTERNATIONAL NORM RATIO 1.2 (0.9-1.1); Prothrombin Time 14.4 SEC (10.8-13.0)
[2020-06-08 23:03] VITALS: BP 130/72; PULSE 125; RESP 34; TEMP 38.2; O2SAT 95
[2020-06-08] MEDS: Acetaminophen 325 MG TABLET 650 MG PO (23:07)
--- NOTE | 2020-06-08 23:16 | PC.NURSE ---
Pt was cleansed of incontinent loose stool, small amount. remains tachipnic. sao2 drops to mid 80's during a break from NRB just for po meds. Pt recovers with NRB and deep breaths but takes close to 5 minutes. Report given to Page ARREGUIN. FLuids infusing.
[2020-06-08 23:28] LABS: Lactic Acid 2.1 mmol/L (0.5-2.0)
[2020-06-08 23:36] LABS: Band Neutrophils Percent 34 % (3-5); Lymphocytes Absolute Manual 0.1 X10*3/uL (0.6-4.8); Lymphocytes Percent Manual 2 % (20-40); Metamyelocytes Absolute 0.1 X10*3/uL; Metamyelocytes Percent 2 %; Monocytes Absolute Manual 0.1 X10*3/uL (0.0-1.2); Monocytes Percent Manual 3 % (2-11); Neutrophils Absolute Manual 3.7 X10*3/uL (2.2-7.9); Neutrophils Percent Manual 59 % (45-73)
[2020-06-08 23:37] LABS: Nucleated Red Blood Cells 1 /100WBC (0-0)
[2020-06-08 23:39] LABS: Acanthocytes 1+; Platelet Estimate NORMAL (NORMAL); Platelet Morphology Comment NORMAL; Polychromasia 1+; RBC Morphology NOTED; Toxic Granulation PRESENT; Toxic Vacuolation PRESENT
[2020-06-08 23:40] LABS: Troponin-I High Sensitivity 26.5 ng/L (<3.5-17.0)
[2020-06-08 23:42] LABS: Influenza A PCR NEGATIVE (Negative); Influenza B PCR NEGATIVE (Negative); Resp Syncy Virus RNA Qual PCR NEGATIVE (Negative)
[2020-06-08 23:45] LABS: SARS COV2 PCR INHOUSE POSITIVE (Negative)
[2020-06-08 23:53] LABS: OBS Int Ctl Valid YES; OBS1 POS (NEG)
[2020-06-08 23:57] VITALS: BP 128/73; PULSE 114; RESP 22; TEMP 36.4; O2SAT 96
[2020-06-09] VITALS (19 sets, daily range): BP systolic 93–121; BP diastolic 59–80; PULSE 99–125; RESP 18–33; TEMP 36.2–36.7; O2SAT 90–98; BMI 32.5
--- NOTE | 2020-06-09 | CT_ITS ---
EXAMINATION: CT ANGIOGRAM OF THE CHEST WITH AND WITHOUT CONTRAST (CT PULMONARY ANGIOGRAM FOR PE) CT ABDOMEN AND PELVIS WITH CONTRAST CLINICAL INFORMATION: Hypoxia. Rectal bleeding. Left abdominal pain. COMPARISON: 04/22/2020 TECHNIQUE: Prior to contrast administration, noncontrast localization images were obtained. Subsequently, multidetector volumetric imaging was performed from the thoracic inlet to below the diaphragms following the administration of 85 mL Omnipaque 350 intravenous contrast. This was followed by multidetector acquisition of the abdomen and pelvis. No contrast reaction reported Sagittal, coronal, and MIP oblique sagittal reformatted images were obtained on the CT workstation, uploaded to PACS, and reviewed. Total exam dose-length product 1151 mGy-cm FINDINGS: QUALITY OF STUDY/CONTRAST BOLUS: Satisfactory. PULMONARY ARTERIES: There is a saddle pulmonary embolism at the main pulmonary artery extending into the left and right main pulmonary arteries. There is additional distal extension into the lobar and segmental levels of both lungs. THORACIC AORTA: No aneurysm or dissection. LUNG: The central airways are patent. Bronchiectasis of the lower lungs. Groundglass opacities of the lung bases are noted. Mild interstitial changes. Additional groundglass opacities in the upper lobes. Mild centrilobular emphysema. PLEURA: No pleural effusion or pneumothorax. MEDIASTINUM: Normal heart size. No pericardial effusion. No hilar or mediastinal lymphadenopathy. There is mild flattening of the interventricular septum suggesting right heart strain. CHEST WALL/AXILLA: No axillary or internal mammary lymphadenopathy. Right-sided breast implant noted. LIVER, GALLBLADDER, AND BILIARY TREE: The liver is normal in size, shape, and attenuation. No biliary ductal dilatation. Redemonstration of multiple hepatic lesions, similar to previous imaging.. The gallbladder is unremarkable with no evidence of radiopaque gallstones, gallbladder wall thickening, or obvious pericholecystic inflammatory changes. PANCREAS: Unremarkable. SPLEEN: Unremarkable. ADRENAL GLANDS: The right adrenal gland is unremarkable. 1.7 cm left adrenal gland nodule is unchanged. KIDNEYS AND URETERS: The kidneys are normal in size, shape, and attenuation. No hydronephrosis, hydroureter, or calculi seen. No perinephric stranding. BLADDER: Unremarkable. GASTROINTESTINAL TRACT: The stomach is unremarkable. Normal caliber small bowel. Mild wall thickening noted at the distal ileum. Colonic diverticulosis without diverticulitis. There is rectal wall thickening and sigmoid colonic wall thickening. No free air. No free fluid. ABDOMINAL WALL: No significant hernia is appreciated. LYMPH NODES: Normal. VASCULAR: Normal caliber aorta with mild atherosclerotic calcification. PELVIC VISCERA: The uterus and adnexa are unremarkable. OSSEOUS STRUCTURES: Degenerative changes are seen throughout the spine. Diffuse heterogeneous appearance throughout the osseous structures consistent with known metastatic disease. Appearance of a pathologic fracture of the sacrum which is new from 04/22/2020. Right pubic rami fractures are present as well, with callus formation present, consistent with a subacute nature. Left total hip arthroplasty noted. CT/CT angio chest PE protocol IMPRESSION: 1. Saddle pulmonary embolism. Evidence of elevated right heart pressures with flattening of the interventricular septum. 2. Heterogeneous groundglass opacities in the lungs, consistent with the patient's known diagnosis of Covid. Likely underlying chronic changes of the lungs. 3. Wall thickening of the distal ileum. Wall thickening of the sigmoid colon and rectum. This is suggestive of enteritis/colitis. 4. Redemonstration of liver lesions, consistent with known metastatic disease. Adrenal nodule is unchanged. 5. Diffuse osseous metastatic disease. There are new fractures of the sacrum and right pubic rami when compared to 04/22/2020. These are likely subacute. This critical result was discussed with Aquilino Osman MD by telephone at 06/09/2020 2:29 AM and it was ascertained that the content and urgency of the report was understood at the time of direct communication. VTE: positive
[2020-06-09] MEDS: levoFLOXacin/D5W 750 MG/150 ML PIGGYBACK 100 MG IV ×2 (00:04→22:10)
[2020-06-09] MEDS: Albuterol Sulfate 90 MCG 8 GM INHALER 2 PUFF INHALE (00:05)
[2020-06-09 00:47] LABS: Reflex Lactate? Lactic Acid Added
[2020-06-09 00:48] LABS: Alanine Aminotransferase 27 U/L (0-31); Albumin Level 2.1 g/dL (3.5-5.0); Alkaline Phosphatase 76 U/L (39-117); Aspartate Amino Transferase 27 U/L (5-31); Bilirubin Direct 0.3 mg/dL (0.0-0.5); Bilirubin Total 0.4 mg/dL (0.0-1.0); Total Protein 4.1 g/dL (6.5-8.0)
[2020-06-09 01:00] LABS: Anion Gap 12 (12-20); Blood Urea Nitrogen 29 mg/dL (9-16); Carbon Dioxide 21 mmol/L (22-29); Chloride 103 mmol/L (96-108); Creatinine Clr Calc Pharmacy 49.6; Estimated Glomerular Filt Rate 48; Glucose Random 138 mg/dL (60-115); Potassium 4.3 mmol/l (3.3-5.1); Sodium 132 mmol/L (135-145)
[2020-06-09 01:01] LABS: Lipase 10 U/L (8-78)
--- NOTE | 2020-06-09 01:35 | PC.NURSE ---
PATIENT WENT TO CT SCAN ,NURSE REBECA AWARE OF PATIENT HIGH HEART RATE AND RESPIRATION RATE .
[2020-06-09 02:01] LABS: ~Lactic Acid-LAB USE ONLY 1.5 mmol/L (0.5-2.0)
[2020-06-09] MEDS: iohexoL 350 MG/ML 100 ML INFUS..BTL 85 ML IV (02:13)
[2020-06-09] MEDS: Heparin Sodium,Porcine 5,000 UNIT/ML VIAL 3768 UNIT IVPUSH (03:01)
[2020-06-09] MEDS: Heparin Sodium,Porcine/1/2NS 25,000 UNIT/250 ML IV.SOLN 13.19 UNIT IVCONT (03:03)
--- NOTE | 2020-06-09 03:08 | PC.NURSE ---
Patient medicated per emar as noted due to PE noted on chest ct scan
--- NOTE | 2020-06-09 04:02 | P.HPHOSP_ITS ---
History of Present Illness Date of Service: 06/09/20 Chief Complaint: weakness, diarrhea This is a 80-year-old female with a recently diagnosed liver as well as bone cancer, history of breast cancer who presents to the hospital with multiple complaints. Patient reports that she has been having diarrhea for the past week and half, that has turned bloody today. Patient reports 3-5 episodes of watery diarrhea with bright red blood present today. She reports that she has also been having trouble breathing for the past couple of days noticed by her family members. She has had some chills, and has developed coughing for about a week and half. She has lost her appetite for the past 3 weeks. She has also noticed swelling in her legs on and off from a ideation this been chronic. she denies any sick contacts or any recent travel. She has no nausea or vomiting, no abdominal pain, no urinary symptoms. Patient has been undergoing radiation therapy for bone cancer including some in the pelvic bone. On arrival to the ED patient has a temperature of 100.7, pulse rate of 125, respiratory rate of 34, blood pressure 102/34, satting 73% on room air. Patient currently on high-flow nasal cannula 45% satting 96%. Labs are significant for WBC count of 4.0, sodium of 132, lactic acid of 2.1, calcium 7.0, high sensitivity troponin 26.5, COVID-19 positive, CT of the chest an abdomen demonstrated saddle embolism with evidence of elevated right heart pressures with flattening of the intraventricular septum. Heterogeneous ground-glass opacities in the lungs consistent with COVID-19 pneumonia, wall thickening of the distal ileum wall thickening of the sigmoid colon and rectum suggestive of enterocolitis / colitis. And demonstration of liver lesions consistent with known metastatic disease. Dot fused osseous metastatic disease with new fracture of the sacrum and right pubic rami patient will be admitted for further management. Past medical history: Breast cancer status post bilateral mastectomy, metastatic liver cancer, metastatic bone cancer, hypothyroidism, past surgical history: Bilateral mastectomy, complication as a result of breast cancer family history: Significant for cancer including colon in mother social history: Comes from home, lives alone, denies any tobacco alcohol or illicit drugs Review of Systems Review of Systems: Yes all other systems are reviewed and are negative [facility] Medical History Breast cancer Hx of radiation therapy Hypertension Hypothyroidism Liver cancer Metastatic breast cancer Metastatic disease Mitral valve vegetation Neuropathy Sciatica Family History Mother Colon cancer Surgical History H/O knee surgery H/O left mastectomy History of bilateral mastectomy History of hip surgery History of left knee replacement (~09/2011) History of lumpectomy of left breast (~02/2012) Social History Household Members: None Housing: Apartment Alcohol intake: unknown Smoking Status: Unknown if ever smoked Use of substances other than those prescribed or required for medical reasons: Unknown Advance Directives: No Advance Directives Information Provided: Yes service: No Current occupational status: retired [email or web address] Allergies Allergy/AdvReac Type Severity Reaction Status Date / Time codeine [CODEINE] Allergy Intermediate VOMITING Verified 06/08/20 22:21 Benadryl Allergy Unknown Unknown Uncoded 04/22/20 19:05 codeine Allergy Unknown vomiting Uncoded 10/10/18 00:00 Codeine Sulfate AdvReac Mild Vomiting Uncoded 04/22/20 19:07 Home Medications Medication Instructions Recorded Confirmed Type cyclobenzaprine 1 tab PO BEDTIME PRN 04/22/20 06/09/20 History Physical Exam Vital Signs and Narrative: Vital Signs: Last Vital Signs Temp 97.5 F 06/09/20 02:30 Pulse 114 H 06/09/20 02:30 Resp 26 H 06/09/20 02:30 BP 110/61 06/09/20 02:30 Pulse Ox 98 06/09/20 02:30 Body Mass Index 32.5 Const: General: cooperative, no acute distress and ill appearing Orientation/consciousness: patient oriented x3 Eyes: General: appearance normal, both eyes and all related structures Pupils: Equal, round and reactive pupils present Resp: Effort & Inspection: normal respiratory effort, able to speak in complete sentences, abnormal respiratory pattern, audible wheezes and Actively coughing Auscultation: rhonchi Cardio: Rate: regular rate Rhythm: regular rhythm GI: Palpation (GI): Soft to palpation Auscultation: normal bowel sounds Skin: General skin exam: no rashes or lesions noted Neuro: General: patient oriented x3 Cranial nerves: Yes Equal, round and reactive pupils present Cognition (Neuro): normal cognition Extrem: General: Yes normal to inspection and Yes no pedal edema Results Labs CBC and Chem 7: 06/08/20 22:41 06/09/20 00:16 Labs: Laboratory Results - last 24 hr 06/08/20 06/08/20 06/08/20 22:40 22:41 22:41 MCV 84.4 MCH 28.5 MCHC 33.7 RDW 16.5 H Plt Count 173 MPV 10.0 Immature Gran % (Auto) Cancelled Neut % (Auto) Cancelled Lymph % (Auto) Cancelled Morrow % (Auto) Cancelled Eos % (Auto) Cancelled Baso % (Auto) Cancelled Lymph # (Auto) Cancelled Morrow # (Auto) Cancelled Eos # (Auto) Cancelled Baso # (Auto) Cancelled Abs Immat Gran (auto) Cancelled Absolute Neuts (auto) Cancelled Absolute Nucleated RBC 0.000 Nucleated RBC % (auto) 0.0 Neutrophils % (Manual) 59 Band Neutrophils % 34 H Lymphocytes % (Manual) 2 L Monocytes % (Manual) 3 Metamyelocytes % 2 Abs Neuts (Manual) 3.7 Lymphocytes # (Manual) 0.1 L Monocytes # (Manual) 0.1 Metamyelocytes # 0.1 Nucleated RBCs 1 H Toxic Granulation PRESENT Toxic Vacuolation PRESENT Platelet Estimate NORMAL Plt Morphology Comment NORMAL RBC Morphology NOTED Polychromasia 1+ Acanthocytes (Spur) 1+ PT INR APTT Anion Gap Cancelled Estim Creat Clear Calc Cancelled Estimated GFR Cancelled Random Glucose Cancelled Lactic Acid Lactic Acid Fup @ 2Hr Calcium Cancelled Total Bilirubin Cancelled Direct Bilirubin Cancelled AST Cancelled ALT Cancelled Alkaline Phosphatase Cancelled Troponin I High Sens Total Protein Cancelled Albumin Cancelled Lipase Cancelled Stool Occult Blood Coronavirus (PCR) POSITIVE A Influenza Type A (PCR) NEGATIVE Influenza Type B (PCR) NEGATIVE RSV RNA Qual (PCR) NEGATIVE Blood Type Antibody Screen 06/08/20 06/08/20 06/08/20 22:41 22:41 22:41 MCV MCH MCHC RDW Plt Count MPV Immature Gran % (Auto) Neut % (Auto) Lymph % (Auto) Morrow % (Auto) Eos % (Auto) Baso % (Auto) Lymph # (Auto) Morrow # (Auto) Eos # (Auto) Baso # (Auto) Abs Immat Gran (auto) Absolute Neuts (auto) Absolute Nucleated RBC Nucleated RBC % (auto) Neutrophils % (Manual) Band Neutrophils % Lymphocytes % (Manual) Monocytes % (Manual) Metamyelocytes % Abs Neuts (Manual) Lymphocytes # (Manual) Monocytes # (Manual) Metamyelocytes # Nucleated RBCs Toxic Granulation Toxic Vacuolation Platelet Estimate Plt Morphology Comment RBC Morphology Polychromasia Acanthocytes (Spur) PT 14.4 H INR 1.2 H APTT 28.0 Anion Gap Estim Creat Clear Calc Estimated GFR Random Glucose Lactic Acid 2.1 H* Lactic Acid Fup @ 2Hr Calcium Total Bilirubin Direct Bilirubin AST ALT Alkaline Phosphatase Troponin I High Sens 26.5 H Total Protein Albumin Lipase Stool Occult Blood Coronavirus (PCR) Influenza Type A (PCR) Influenza Type B (PCR) RSV RNA Qual (PCR) Blood Type Antibody Screen 06/08/20 06/08/20 06/09/20 22:50 23:02 00:16 MCV MCH MCHC RDW Plt Count MPV Immature Gran % (Auto) Neut % (Auto) Lymph % (Auto) Morrow % (Auto) Eos % (Auto) Baso % (Auto) Lymph # (Auto) Morrow # (Auto) Eos # (Auto) Baso # (Auto) Abs Immat Gran (auto) Absolute Neuts (auto) Absolute Nucleated RBC Nucleated RBC % (auto) Neutrophils % (Manual) Band Neutrophils % Lymphocytes % (Manual) Monocytes % (Manual) Metamyelocytes % Abs Neuts (Manual) Lymphocytes # (Manual) Monocytes # (Manual) Metamyelocytes # Nucleated RBCs Toxic Granulation Toxic Vacuolation Platelet Estimate Plt Morphology Comment RBC Morphology Polychromasia Acanthocytes (Spur) PT INR APTT Anion Gap 12 Estim Creat Clear Calc 49.6 Estimated GFR 48 Random Glucose 138 H Lactic Acid Lactic Acid Fup @ 2Hr Calcium 7.0 L D Total Bilirubin Direct Bilirubin AST ALT Alkaline Phosphatase Troponin I High Sens Total Protein Albumin Lipase Stool Occult Blood POS Coronavirus (PCR) Influenza Type A (PCR) Influenza Type B (PCR) RSV RNA Qual (PCR) Blood Type O Positive Antibody Screen NEGATIVE 06/09/20 06/09/20 06/09/20 00:16 00:16 01:23 MCV MCH MCHC RDW Plt Count MPV Immature Gran % (Auto) Neut % (Auto) Lymph % (Auto) Morrow % (Auto) Eos % (Auto) Baso % (Auto) Lymph # (Auto) Morrow # (Auto) Eos # (Auto) Baso # (Auto) Abs Immat Gran (auto) Absolute Neuts (auto) Absolute Nucleated RBC Nucleated RBC % (auto) Neutrophils % (Manual) Band Neutrophils % Lymphocytes % (Manual) Monocytes % (Manual) Metamyelocytes % Abs Neuts (Manual) Lymphocytes # (Manual) Monocytes # (Manual) Metamyelocytes # Nucleated RBCs Toxic Granulation Toxic Vacuolation Platelet Estimate Plt Morphology Comment RBC Morphology Polychromasia Acanthocytes (Spur) PT INR APTT Anion Gap Estim Creat Clear Calc Estimated GFR Random Glucose Lactic Acid Lactic Acid Fup @ 2Hr 1.5 Calcium Total Bilirubin 0.4 Direct Bilirubin 0.3 AST 27 ALT 27 Alkaline Phosphatase 76 D Troponin I High Sens Total Protein 4.1 L D Albumin 2.1 L D Lipase 10 Stool Occult Blood Coronavirus (PCR) Influenza Type A (PCR) Influenza Type B (PCR) RSV RNA Qual (PCR) Blood Type Antibody Screen Imaging Radiologist's Impressions: Impressions Chest X-Ray 06/08/20 22:04 IMPRESSION: No consolidating pneumonia. Known metastatic disease. Abdomen/Pelvis CT 06/09/20 00:00 IMPRESSION: 1. Saddle pulmonary embolism. Evidence of elevated right heart pressures with flattening of the interventricular septum. 2. Heterogeneous groundglass opacities in the lungs, consistent with the patient's known diagnosis of Covid. Likely underlying chronic changes of the lungs. 3. Wall thickening of the distal ileum. Wall thickening of the sigmoid colon and rectum. This is suggestive of enteritis/colitis. 4. Redemonstration of liver lesions, consistent with known metastatic disease. Adrenal nodule is unchanged. 5. Diffuse osseous metastatic disease. There are new fractures of the sacrum and right pubic rami when compared to 04/22/2020. These are likely subacute. This critical result was discussed with Aquilino Osman MD by telephone at 06/09/2020 2:29 AM and it was ascertained that the content and urgency of the report was understood at the time of direct communication. VTE: positive Chest CTA 06/09/20 00:00 IMPRESSION: 1. Saddle pulmonary embolism. Evidence of elevated right heart pressures with flattening of the interventricular septum. 2. Heterogeneous groundglass opacities in the lungs, consistent with the patient's known diagnosis of Covid. Likely underlying chronic changes of the lungs. 3. Wall thickening of the distal ileum. Wall thickening of the sigmoid colon and rectum. This is suggestive of enteritis/colitis. 4. Redemonstration of liver lesions, consistent with known metastatic disease. Adrenal nodule is unchanged. 5. Diffuse osseous metastatic disease. There are new fractures of the sacrum and right pubic rami when compared to 04/22/2020. These are likely subacute. This critical result was discussed with Aquilino Osman MD by telephone at 06/09/2020 2:29 AM and it was ascertained that the content and urgency of the report was understood at the time of direct communication. VTE: positive Assessment and Plan (1) COVID-19: Status: Acute (2) Acute saddle pulmonary embolism: Qualifiers: Acute cor pulmonale presence: unspecified Qualified Code(s): I26.92 - Saddle embolus of pulmonary artery without acute cor pulmonale Status: Acute (3) Colitis with rectal bleeding: Status: Acute (4) Hypoxia: Status: Acute (5) Sepsis: Qualifiers: Sepsis acute organ dysfunction status: with acute organ dysfunction Sepsis type: sepsis due to unspecified organism Severe sepsis acute organ dysfunction type: unspecified Severe sepsis shock status: unspecified Qualified Code(s): A41.9 - Sepsis, unspecified organism; R65.20 - Severe sepsis without septic shock Status: Acute (6) Acute GI bleeding: Status: Acute (7) Fracture of ramus of right pubis: Qualifiers: Encounter type: initial encounter Fracture type: closed Qualified Code(s): S32.591A - Other specified fracture of right pubis, initial encounter for closed fracture Status: Acute (8) Closed sacral fracture: Qualifiers: Encounter type: initial encounter Fracture alignment: nondisplaced Zone of sacrum fracture: zone I of sacrum Qualified Code(s): S32.110A - Nondisplaced Zone I fracture of sacrum, initial encounter for closed fracture Status: Acute (9) Hypothyroidism: Status: Inactive (10) Metastatic breast cancer: Status: Inactive this is a 80-year-old female with history of metastatic breast cancer to the liver embolic presents to the hospital with multiple complaints as above including bloody diarrhea, cough, shortness of breath, found to have COVID-19 as well as saddle emboli. # Acute saddle pulmonary embolism - with right heart strain per CT of the chest - patient currently undergoing radiation for cancer with cancer being the most likely provoking factor - also has GI bleed that is hemodynamically stable - has a high PESI score with high mortality a patient otherwise hemodynamically stable - required high-flow nasal cannula to maintain oxygenation plan: - Started on heparin ggt- cautiously, given GI bleed. in the setting benefit versus risk evaluation suggest starting the patient on heparin given her high PESI score and the opresence of Saddle emboli - echocardiogram - continue oxygen supplementation with high-flow nasal cannula - prognosis guarded # COVID-19 infection and pneumonia - has bilateral infiltrate on CT scan, with a positive COVID results, hypoxia as well as cough and fever - patient on dexamethasone at home 4 mg b.i.d. - at this time will continue dexamethasone - monitor respiratory status closely with a low threshold to transfer to ICU # sepsis - multifactorial unclear had ham with had had a emboli but has leukopenia as well plan: - IV antibiotics for the colitis including Flagyl and Levaquin - follow blood cultures - IV fluids # acute GI bleed - no overt GI bleed since presenting to the ED - CT of the abdomen demonstrates colitis / enterocolitis which is most likely the source of her bleeding, patient also has a history of diverticular bleed in 2012 plan: - Pantoprazole b.i.d. - NPO - GI consult - monitor CBC with H&H q.12 hours # colitis/enterocolitis - will start her on Flagyl and Levaquin - follow blood cultures # metastatic cancer including to liver and bone - currently undergoing radiation therapy - has fracture of ramus of right pubis per CT with patient stating that she has cancer in that area - will consult Hematology-Oncology - continue pain management # lactic acidosis - most likely secondary to above - will continue IV fluids and trend # hypothyroidism - per record and patient she is no longer on levothyroxine - will check TSH DVT prophylaxis: Heparin GGT
[2020-06-09 04:58] LABS: Hematocrit 35.9 % (37-47); Hemoglobin 12.1 g/dl (12.0-16.0)
[2020-06-09] MEDS: oxyCODONE HCl Immed Release 5 MG TABLET PO ×2 (05:25→19:58)
[2020-06-09 05:36] LABS: Troponin-I High Sensitivity 29.2 ng/L (<3.5-17.0)
[2020-06-09 05:45] LABS: Thyroid Stimulating Hormone 1.07 uIU/mL (0.32-4.0)
[2020-06-09 06:24] LABS: INTERNATIONAL NORM RATIO 1.3 (0.9-1.1)
[2020-06-09] MEDS: Pantoprazole Sodium 40 MG/10 ML VIAL IVPUSH ×2 (06:26→15:13)
[2020-06-09] MEDS: 0.9 % Sodium Chloride 1,000 ML 100 ML IVCONT (06:26)
[2020-06-09] MEDS: metroNIDAZOLE/NS 500 MG/100 ML PIGGYBACK 100 MG IV ×3 (06:34→21:06)
--- NOTE | 2020-06-09 07:50 | PC.NURSE ---
Pt wanted flu shot. Pt has had fevers and is COVID +. will reassess administration at time of discharge
--- NOTE | 2020-06-09 07:52 | PC.NURSE ---
Late entry; Patient admitted to floor at 0400. Heparin drip was started at 0303 in the ED, heparin running at 14 units/kg/hr, with a rate of 13.19 mls/ hr. Stat PTT due at 0900
--- NOTE | 2020-06-09 07:57 | PC.NURSE ---
0535 Lab called with critical troponin 29.2 Dr. Ford notified. No new orders at this time.
[2020-06-09] MEDS: dexAMETHasone 4 MG TABLET PO ×2 (08:53→21:06)
--- NOTE | 2020-06-09 09:06 | MHC.CM.PN ---
Patient is on the Covid Unit; CM spoke with her over the phone. Patient lives alone in a condo and uses a walker to assist with mobility. Patient has 3 Daughter, 2 of whom are quarantining and 1 who awaits test results. Patient hopes to receive her entire treatment here but should STR be necessary, her first choice is [place]. If Patient is able to return directly home, she is interested in receiving [facility] services. CM has initiated and will follow for dc planning. IMM addressed with Patient and her RN will deliver the original to her and a copy has been placed on the chart.PCP is Dr. Mert Stone.
--- NOTE | 2020-06-09 09:40 | P.CDIC_ITS ---
CDI Concurrent Query Service Date: 06/10/20 Documentation Clarification: Please clarify if you are treating a proba ble/suspected/likely or confirmed: Acute Hypoxic Respiratory Failure Other, please specify Provider Response: Acute Respiratory Failure PLEASE DO NOT DELETE/MODIFY EXISTING CONTENT Additional information is needed in order to code to the highest accuracy and appropriate Severity of Illness (SOI). Please clarify the information noted below in your progress notes and discharge summary. Risk Factors/Clinical Indicators/Treatments 80 year old female admitted with + COVID Acute Saddle PE, Colitis with rectal bleed, Acute Hypoxia, Sepsis, Severe, Sepsis, Acute GIB, Pneumonia, Metastatic CA Dyspnea, RR 26, SAT 73%, treated with high flow oxygen mask at 15L/minute then SAT 95% CDS: Torie Hong RN Contact Number: [phone] Please Review the information above and exercise your independent professional judgment in responding to the query. If you concur, pleas document in the PROG RESS NOTES and DISCHARGE SUMMARY. If you do not agree with the query, please document in the query above. THIS QUERY IS PART OF THE PERMANENT MEDICAL RECORD
[2020-06-09 09:59] LABS: PTT Heparin Drip 172.9 SEC (53-77.9)
--- NOTE | 2020-06-09 11:00 | CA_ITS ---
Transthoracic Echocardiogram Patient (Last, First, Middle): Susie Nixon A Gender: Female Date of : 1940 Age: 80 Procedure Date: 06/09/2020 Procedure Type: Transthoracic Echocardiogram Location: [facility] [place] Height: 170.18 cm Weight: 93.9 kg BSA: 2.05 m2 Heart Rate: bpm BP: 110 / 61 mmHg Executive Team Leader: Referring MD: Radha Ford MD Symptoms: Saddle emboli Study Quality: Fair ECG Rhythm: Atrial flutter Conclusions: - Normal left ventricular size and systolic function. - Normal right ventricular cavity size. There is normal right ventricular systolic function. - Mild pulmonary hypertension is present. Findings Left Ventricle Normal left ventricular size and systolic function. There is mildly increased left ventricular wall thickness. The visually estimated ejection fraction is between 60-65%. There is no evidence of regional wall motion abnormalities. Diastolic function is indeterminate on the basis of available data. Right Ventricle Normal right ventricular cavity size. There is normal right ventricular systolic function. Atria The left atrium is normal in size. Aortic Valve There is a normal trileaflet aortic valve. There is no aortic valve stenosis. There is no aortic valve regurgitation. Mitral Valve The mitral valve was not well visualized. The mitral valve appears normal. There is trace mitral valve regurgitation. There is no mitral valve stenosis. Pulmonic Valve The pulmonic valve is likely normal. There is trace pulmonic valve regurgitation. Tricuspid Valve Likely normal tricuspid valve structure and function. There is trace tricuspid valve regurgitation. Normal right atrial pressure. Mild pulmonary hypertension is present. Great Vessels All visible segments of the aorta are normal in size. The visualized portions of the pulmonary artery and branches are normal. Venous The inferior vena cava is normal in size and collapses greater than 50% with inspiration. Pericardium/Pleural Prominent epicardial adipose tissue noted. There is no evidence of pericardial effusion. Prior Study Comparison Changes noted compared to prior study dated: 05/18/2020. Mild pulmonary hypertension present. Measurements 2D Linear Measurements IVSd: 0.99 0.6-0.9/0.6-1.0 cm LVIDd: 3.94 3.9-5.3/4.2-5.9 cm LVIDd Index: 1.92 2.4-3.2/2.2-3.1 cm/m2 LVIDs: 2.52 2.0-3.6 cm LVPWd: 1.12 0.7-1.1 cm Ao Root: 3.40 2.1-3.5 cm LA Diam: 3.50 2.7-3.8/3.0-4.0 cm LAIDs Index: 1.71 1.5-2.3 cm/m2 LV Mass: 166.92 67-162/88-224 g LV Mass Index: 81.43 43-95/49-115 g/m2 LVOT Diam: 2.30 3.0+(-)1.3 cm Mitral Valve MV Pk E: 0.48 MV PK A: 0.66 MV Decel Time: 122.00 E/A: 0.70 E'Lateral: 6.96 E'Medial: 10.70 E/E' Med: 4.50 E/E' Lat: 6.90 PHT: 36.00 MVA PHT: 6.11 Decel Mcdowell: 3.85 Aortic Valve AoV Pk Colton: 1.06 AoV Mn Colton: 0.67 AoV VTI: 0.18 AoV Pk Grad: 4.00 Aov Mn Grad: 2.00 JOHNNY Cont.VTI: 3.27 LVOT LVOT Pk Colton: 0.69 LVOT Mn Colton: 0.47 LVOT VTI: 0.14 LVOT Pk Grad: 2.00 LVOT Mn Grad: 1.00 LVOT Diam: 2.30 LVOT Area: 4.15 Diastolic Function MV Pk E: 0.48 MV Pk A: 0.66 E/A: 0.70 E'Medial: 10.70 E/E' Med: 4.50 E' Laterial: 6.96 E/E' Lat: 6.90 Tricuspid Valve TR Pk Colton: 3.09 TR Pk Grad: 38.00 RVSP: 45.00 Great Vessels Aorta Ao Root-2D: 3.40 2.0-3.7 cm Pulmonary Valve PV Pk Colton: 0.58 Peak PV Grad: 1.00 Updated in Other Vendor System with Status of Final Toby Daigle MD electronically signed on 06/09/2020 4:15:55 PM with status of Final
[2020-06-09 11:55] LABS: PTT Heparin Drip 98.5 SEC (53-77.9)
[2020-06-09 12:03] LABS: Hematocrit 37.6 % (37-47); Hemoglobin 12.7 g/dl (12.0-16.0); Mean Corpuscular HGB Conc 33.8 g/dl (31.0-35.0); Mean Corpuscular Hemoglobin 29.1 pg (27.0-33.0); Mean Corpuscular Volume 86.2 fL (80-98); Platelet Count 128 X10*3/uL (160-400); Red Blood Count 4.36 X10*6/uL (4.20-5.50); Red Cell Distribution Width 16.5 % (11.0-16.0)
[2020-06-09 12:04] LABS: WBC ABN SCTR FOR CBC 1
[2020-06-09 12:15] LABS: White Blood Count 4.4 X10*3/uL (4.8-10.8)
[2020-06-09 12:18] LABS: Band Neutrophils Percent 30 % (3-5); Lymphocytes Absolute Manual 0.2 X10*3/uL (0.6-4.8); Lymphocytes Percent Manual 4 % (20-40); Metamyelocytes Percent 1 %; Monocytes Absolute Manual 0.3 X10*3/uL (0.0-1.2); Monocytes Percent Manual 7 % (2-11); Neutrophils Absolute Manual 3.9 X10*3/uL (2.2-7.9); Neutrophils Percent Manual 58 % (45-73)
[2020-06-09 12:20] LABS: Burr Cells 1+; Platelet Estimate DECREASED (NORMAL); Platelet Morphology Comment NORMAL; RBC Morphology NOTED
[2020-06-09 12:22] LABS: B Type Natriuretic Peptide 64 pg/mL (<100); Toxic Granulation PRESENT; Toxic Vacuolation PRESENT; Troponin-I High Sensitivity 26.1 ng/L (<3.5-17.0)
--- NOTE | 2020-06-09 13:26 | P.CNHO_ITS ---
Subjective - Subjective Chief complaint: Shortness of breath Patient: known to practice within the last 3 years Consult date: 06/09/20 Requesting Physician: Dr. Matias. Primary Care Provider: Unknown Physician Medical Summary: CT abdomen/pelvis performed 04/22/2020- 1. Multiple liver masses worrisome for metastatic disease. 2. Left adrenal mass which could represent metastatic disease. 3. Multiple bone lesions highly suspicious for metastatic disease. CT chest performed 04/23/2020 revealed- 1. Scattered sclerotic metastases thoracic spine. Pathologic fracture, possibly chronic, upper sternal body. 2. Scattered bilateral nodularity, largest medial left upper lobe abutting the aortic arch measuring 1.7 x 1.2 x 1.9 cm. 3. No hilar or mediastinal adenopathy or ascites. Liver, biopsy: Moderate to poorly differentiated carcinoma consistent with metastasis from patient's known primary breast carcinoma. Estrogen Receptor: Positive (strong intensity; 100% of tumor cells) Progesterone Receptor: Positive (variable weak/moderate intensity; 15% of tumor cells) HER2: Positive (3+) Started Arimidex 1 mg p.o. daily in April 2020. HPI - Consult Narrative Reason for consult: Saddle pulmonary embolism, history of metastatic breast cancer Narrative: Susie Nixon is a 80 year old female who has been diagnosed with metastatic breast cancer in April 2020. She was admitted early this morning with complaints of shortness of breath, diarrhea, chills and loss of appetite. She was receiving palliative radiation therapy to her spine because of bone metastasis, she could not go on her last day of treatment because of her symptoms. workup in the emergency room revealed temperature of 100.7, pulse rate of 125, respiratory rate of 34, blood pressure 102/34, satting 73% on room air. Labs were significant for COVID-[address] of the chest an abdomen demonstrated saddle embolism with evidence of elevated right heart pressures with flattening of the intraventricular septum. Heterogeneous ground-glass opacities in the lungs consistent with COVID-19 pneumonia, wall thickening of the distal ileum wall thickening of the sigmoid colon and rectum suggestive of enterocolitis / colitis. And demonstration of liver lesions consistent with known metastatic disease. Diffuse osseous met astatic disease with new fracture of the sacrum and right pubic rami. Patient has been started on unfractionated heparin and is on high-flow oxygen. Review of Systems - Constitutional Reports as per HPI, Reports no additional constitutional complaints PMFSH Medical History: Medical History (Last Updated 06/09/20 @ 04:21 by Radha Ford MD) Breast cancer Hx of radiation therapy Hypertension Hypothyroidism Liver cancer Metastatic breast cancer Metastatic disease Mitral valve vegetation Neuropathy Sciatica Family History: Family History (Last Reviewed 05/19/20 @ 14:52 by Jojo Cannon MD) Mother Colon cancer Surgical History: Surgical History (Last Reviewed 06/08/20 @ 22:25 by Oumou Ortega) H/O knee surgery H/O left mastectomy History of bilateral mastectomy History of hip surgery History of left knee replacement Onset Date: ~09/2011 History of lumpectomy of left breast Onset Date: ~02/2012 Smoking status: Unknown if ever smoked Home Medications and Allergies Current Medications: Current Medications Generic Name Dose Route Start Last Admin Trade Name Freq PRN Reason Stop Dose Admin Acetaminophen 650 mg 06/09/20 04:10 Acetaminophen 325 Mg Tablet PO Q6H PRN Pain, Mild (Pain Scale 1-3) Anastrozole 1 mg 06/09/20 09:00 06/09/20 09:20 Anastrozole 1 Mg Tablet PO Not Given DAILY TRISHA Cyclobenzaprine HCl 10 mg 06/09/20 04:10 Cyclobenzaprine Hcl 10 Mg Tablet PO BEDTIME PRN Back Pain Dexamethasone 4 mg 06/09/20 09:00 06/09/20 08:53 Dexamethasone 4 Mg Tablet PO 4 mg BID TRISHA Administration Docusate Sodium 100 mg 06/09/20 09:00 06/09/20 09:19 Docusate Sodium 100 Mg Capsule PO Not Given DAILY TRISHA Docusate Sodium 100 mg 06/09/20 04:10 Docusate Sodium 100 Mg Capsule PO DAILY PRN Constipation Heparin Sodium/Sodium Chloride 25,000 unit in 250 mls @ 0 mls/hr 06/09/20 02:45 06/09/20 10:00 IVCONT 0 units/kg/hr .Q0M TRISHA 0 mls/hr Titration Protocol Per Protocol Sodium Chloride 1,000 mls @ 100 mls/hr 06/09/20 04:10 06/09/20 13:14 Ns IVCONT 0 mls/hr .Q10H TRISHA Infusion Metronidazole 500 mg in 100 mls @ 100 mls/hr 06/09/20 05:30 06/09/20 13:14 Flagyl IV 100 mls/hr Q8H TRISHA Administration Levofloxacin 750 mg in 150 mls @ 100 mls/hr 06/09/20 23:00 Levaquin IV Q24H TRISHA Ondansetron HCl 4 mg 06/09/20 04:10 Ondansetron Hcl 4 Mg/2 Ml Vial IVPUSH Q8H PRN Nausea and Vomiting Oxycodone HCl 5 mg 06/09/20 04:10 06/09/20 05:25 Oxycodone Hcl Immed Release 5 Mg Tablet PO 5 mg Q6H PRN Administration Back Pain Pantoprazole Sodium 40 mg 06/09/20 06:30 06/09/20 06:26 Pantoprazole Sodium 40 Mg/10 Ml Vial IVPUSH 40 mg BID@0630,1630 [facility] Administration Polyethylene Glycol 17 gm 06/09/20 09:00 06/09/20 09:19 Polyethylene Glycol 3350 17 Gm Powd.Pack PO Not Given BID TRISHA Sodium Chloride 3 ml 06/09/20 08:00 06/09/20 08:45 0.9 % Sodium Chloride Flush 3 Ml Syringe IVFLUSH Not Given QSHIFT [facility] Home Medications Medication Instructions Recorded Confirmed Type cyclobenzaprine 1 tab PO BEDTIME PRN 04/22/20 06/09/20 History Allergies Allergy/AdvReac Type Severity Reaction Status Date / Time codeine [CODEINE] Allergy Intermediate VOMITING Verified 06/08/20 22:21 Benadryl Allergy Unknown Unknown Uncoded 04/22/20 19:05 codeine Allergy Unknown vomiting Uncoded 10/10/18 00:00 Codeine Sulfate AdvReac Mild Vomiting Uncoded 04/22/20 19:07 Physical Exam Vital signs: Vital Signs Temp 97.9 F 06/09/20 12:00 Pulse 116 H 06/09/20 12:00 Resp 18 06/09/20 12:00 BP 120/69 06/09/20 12:00 Pulse Ox 90 L 06/09/20 12:00 Intake & Output 06/08/20 06/09/20 06/09/20 18:59 06:59 18:59 Intake Total 3992.667 / 3992.667 758.338 / 758.338 Balance 3992.667 / 3992.667 758.338 / 758.338 Intake: Intake, IV Amount 3992.667 / 3992.667 758.338 / 758.338 levoFLOXacin/D5W 750 mg In 150 150 / 150 ml @ 100 mls/hr IV ONCE ONE Rx# :[id number] metroNIDAZOLE/NS 500 mg In 100 100 / 100 ml @ 100 mls/hr IV Q8H [facility] Rx#: [id number] 0.9 % Sodium Chloride 1,000 ml 3842.667 / 3842.667 566.667 / 566.667 @ 100 mls/hr IVCONT .Q10H [facility] Rx#:[id number] Heparin Sodium,Porcine/1/2NS 25 91.671 / 91.671 ,000 unit In 250 ml @ Per Protocol IVCONT .Q0M [facility] Rx#: [id number] Other: Number of Unmeasured Voids 0 Weight 94.2 kg 94.2 kg Weight 94.2 kg - Constitutional Present: mild distress Hem/Onc Consult Result - Labs CBC & Chem 7: 06/09/20 11:20 06/09/20 00:16 Labs: Short CBC 06/08/20 06/09/20 06/09/20 Range/Units 22:41 04:50 11:20 WBC 4.0 L 4.4 L (4.8-10.8) X10*3/uL Hgb 14.2 12.1 12.7 (12.0-16.0) g/dl Hct 42.1 35.9 L 37.6 (37-47) % Plt Count 173 128 L D (160-400) X10*3/uL BMP 06/08/20 06/09/20 22:41 00:16 Sodium Cancelled 132 L Potassium Cancelled 4.3 Chloride Cancelled 103 Carbon Dioxide Cancelled 21 L BUN Cancelled 29 H Creatinine Cancelled 1.10 Calcium Cancelled 7.0 L D Liver Function 06/08/20 06/09/20 Range/Units 22:41 00:16 Total Bilirubin Cancelled 0.4 Direct Bilirubin Cancelled 0.3 AST Cancelled 27 ALT Cancelled 27 Alkaline Phosphatase Cancelled 76 D Albumin Cancelled 2.1 L D Assessment and Plan (1) Acute saddle pulmonary embolism Status: Acute Qualifiers: Acute cor pulmonale presence: unspecified Qualified Code(s): I26.92 - Saddle embolus of pulmonary artery without acute cor pulmonale 1. This is a 80-year-old woman with metastatic breast cancer diagnosed in April 2020 now presenting with saddle pulmonary embolism with evidence of right heart strain and COVID 19 pneumonia. She is hypoxemic and requiring high-flow oxygen therapy. She has been started on anticoagulation with unfractionated heparin. Patient is aware of the seriousness of this situation. She is quite alert and oriented and is able to make decisions for herself. For now she wants everything done in order to treat her pulmonary embolism and COVID-19 pneumonia. 2. Metastatic breast cancer. She was started on hormonal therapy with Arimidex 1 mg p.o. daily since April 2020. She just finished palliative radiation therapy to the spine for painful bony metastasis from her breast cancer. She was supposed to start Herceptin for her HER2 positive breast cancer but this cannot be done for the time being. I thank you for this referral.
--- NOTE | 2020-06-09 13:37 | PC.NURSE ---
Addendum entered by Paulina Adan RN 06/09/20 14:29: next PTT-HD at 2044 Original Note: Pt PTT-HD came back at 1000 at 172.9. Stopped heparin gtt per protocol and q1hr checks untill below 93. 1100 PTT-HD was 98.5. 1315 PTT-HD was 40.2. restarted heparin gtt at 10units/kg/hr, 9.42. Pt on highflow 100% 40L satting 90-93%. Continuous o2 prob put on pt to monitor and keep about 90%
[2020-06-09 13:38] LABS: Hematocrit 38.6 % (37-47); Hemoglobin 12.8 g/dl (12.0-16.0)
[2020-06-09 13:39] LABS: PTT Heparin Drip 40.2 SEC (53-77.9)
[2020-06-09] MEDS: 0.9 % Sodium Chloride Flush 3 ML SYRINGE IVFLUSH (15:13)
--- NOTE | 2020-06-09 16:32 | PC.NURSE ---
Pt refusing Arimidex. states that The benifits don't outweigh the risks and she doesnt like what it did to her last time.
--- NOTE | 2020-06-09 17:59 | P.CONCC_ITS ---
History of Present Illness Data of Consult Service Date: 06/09/20 Requesting physician: Yareli Matias Primary Care Provider: Unknown Physician HPI Reason for consult: level of care 80-year-old lady with underlying metastatic breast cancer on palliative radiotherapy for spine metastasis admitted on 06/09/2020 with dyspnea secondary to newly diagnosed subtle embolism and COVID-19. Initial troponin only mildly elevated and coming down, BNP normal, hemodynamically stable. Patient has been started on heparin drip. She also was noted to have colitis. Review of Systems Constitutional: Constitutional: Reports malaise and Reports weakness Eyes: Eyes: Denies change in vision Cardiovascular: Cardiovascular: Reports rapid heart rate, Reports leg edema, Reports dyspnea and Reports dyspnea on exertion Respiratory: Respiratory: Denies cough, Reports dyspnea, Reports dyspnea on exertion and Denies wheezing Gastrointestinal: Gastrointestinal: Denies constipation and Reports diarrhea Genitourinary: Genitourinary: Denies urinary incontinence and Denies urinary urgency Musculoskeletal: Musculoskeletal: Reports back pain Neurologic: Denies focal weakness and Reports weakness Psychiatric: Psychiatric: Reports anxiety Endocrine: Endocrine: Denies cold intolerance and Denies heat intolerance Hematologic/Lymphatic: Hematologic/Lymphatic: Denies easy bruising Allergic/Immunologic: Allergic/Immunologic: Denies wheezing PMFSH Past Medical History Medical History Breast cancer Hx of radiation therapy Hypertension Hypothyroidism Liver cancer Metastatic breast cancer Metastatic disease Mitral valve vegetation Neuropathy Sciatica Family History Family History Mother Colon cancer Surgical History Surgical History H/O knee surgery H/O left mastectomy History of bilateral mastectomy History of hip surgery History of left knee replacement (~09/2011) History of lumpectomy of left breast (~02/2012) Social History Social History Household Members: None Housing: Apartment Do you presently have visiting nurse or other home services: No (family helps o ut) Alcohol intake: unknown Smoking Status: Unknown if ever smoked Use of substances other than those prescribed or required for medical reasons: No Currently Displaying Signs/Symptoms of Drug Intoxication Withdrawal: No Have you been hit, kicked, punched, or otherwise hurt by someone within the past year? If so, by whom?: No Do you feel safe in your current relationship?: No Current Relationship Is there a partner from a previous relationship who is making you feel unsafe now?: No Are you made to feel afraid or neglected: No Advance Directives: No Advance Directives Information Provided: Yes Do you have thoughts of harming others: None Do you have a plan to hurt others: No Plan Recently lost weight without trying: Yes service: No Current occupational status: retired [employer] Allergies Allergy/AdvReac Type Severity Reaction Status Date / Time codeine [CODEINE] Allergy Intermediate VOMITING Verified 06/08/20 22:21 Benadryl Allergy Unknown Unknown Uncoded 04/22/20 19:05 codeine Allergy Unknown vomiting Uncoded 10/10/18 00:00 Codeine Sulfate AdvReac Mild Vomiting Uncoded 04/22/20 19:07 Home Medications Medication Instructions Recorded Confirmed Type cyclobenzaprine 1 tab PO BEDTIME PRN 04/22/20 06/09/20 History Physical Exam Vital Signs: Vital Signs: Last Vital Signs Temp 97.9 F 06/09/20 15:34 Pulse 125 H 06/09/20 15:34 Resp 20 06/09/20 15:34 BP 121/80 06/09/20 15:34 Pulse Ox 92 06/09/20 15:34 Body Mass Index 32.5 Const: General: no acute distress, alert and awake Eyes: Sclerae: sclerae normal EOM: EOMs intact bilaterally Neck: Neck: Yes no lymphadenopathy, Yes trachea midline and Yes supple Resp: Effort & Inspection: normal respiratory effort and no respiratory distress Auscultation: crackles ( Diffuse bilateral) Cardio: Rate: regular rate and tachycardic Rhythm: regular rhythm Heart sounds: no gallops, no murmurs and no rubs GI: Palpation (GI): Soft to palpation and Other GI palpation findings present ( Nontender) Auscultation: normal bowel sounds Extrem: General: No clubbing, No cyanosis and Yes edema (2+ bilateral) Results Labs CBC & Chem 7: 06/09/20 13:14 06/09/20 00:16 Labs: Short CBC 06/08/20 06/09/20 06/09/20 Range/Units 22:41 04:50 11: WBC 4.0 L 4.4 L (4.8-10.8) X10*3/uL Hgb 14.2 12.1 12.7 (12.0-16.0) g/dl Hct 42.1 35.9 L 37.6 (37-47) % Plt Count 173 128 L D (160-400) X10*3/uL 06/09/20 Range/Units 13:14 WBC (4.8-10.8) X10*3/uL Hgb 12.8 (12.0-16.0) g/dl Hct 38.6 (37-47) % Plt Count (160-400) X10*3/uL BMP 06/08/20 06/09/20 22:41 00:16 Sodium Cancelled 132 L Potassium Cancelled 4.3 Chloride Cancelled 103 Carbon Dioxide Cancelled 21 L BUN Cancelled 29 H Creatinine Cancelled 1.10 Calcium Cancelled 7.0 L D Liver Function 06/08/20 06/09/20 Range/Units 22:41 00:16 Total Bilirubin Cancelled 0.4 Direct Bilirubin Cancelled 0.3 AST Cancelled 27 ALT Cancelled 27 Alkaline Phosphatase Cancelled 76 D Albumin Cancelled 2.1 L D Assessment and Plan (1) COVID-19: Status: Acute Impression: Acute hypoxic respiratory failure secondary to combination of COVID-19 and subtle pulmonary embolism. Hemodynamically stable. Now laboratory evidence of right heart strain. Able to maintain normoxemia with high-flow nasal cannula. Recommendations: Agree with anticoagulation. Monitor hemoglobin. Consider evaluation for residual lower extremity deep venous thrombosis, and if present, would suggest placement of IVC filter. At this time patient does not require intensive care level of care. Please notify for re-evaluation, if patient's condition changes. (2) Acute saddle pulmonary embolism: Qualifiers: Acute cor pulmonale presence: unspecified Qualified Code(s): I26.92 - Saddle embolus of pulmonary artery without acute cor pulmonale Status: Acute
[2020-06-09] MEDS: ondansetron HCL 4 MG/2 ML VIAL IVPUSH (19:58)
[2020-06-09 21:19] LABS: PTT Heparin Drip 75.9 SEC (53-77.9)
[2020-06-10] VITALS (13 sets, daily range): BP systolic 107–117; BP diastolic 58–81; PULSE 100–140; RESP 16–28; TEMP 35.9–37.4; O2SAT 88–93; BMI 33.0
[2020-06-10] MEDS: 0.9 % Sodium Chloride Flush 3 ML SYRINGE IVFLUSH ×3 (00:03→15:42)
[2020-06-10 03:37] LABS: PTT Heparin Drip 91.6 SEC (53-77.9)
[2020-06-10] MEDS: metroNIDAZOLE/NS 500 MG/100 ML PIGGYBACK 100 MG IV ×3 (05:23→21:11)
[2020-06-10] MEDS: Pantoprazole Sodium 40 MG/10 ML VIAL IVPUSH ×2 (05:23→16:11)
[2020-06-10] MEDS: Heparin Sodium,Porcine/1/2NS 25,000 UNIT/250 ML IV.SOLN 7.54 UNIT IVCONT (06:18)
[2020-06-10 07:34] LABS: PLT CLUMP 1
[2020-06-10 07:36] LABS: Hematocrit 36.5 % (37-47); Mean Corpuscular HGB Conc 32.9 g/dl (31.0-35.0); Mean Corpuscular Hemoglobin 27.9 pg (27.0-33.0); Mean Corpuscular Volume 84.9 fL (80-98); Mean Platelet Volume 10.2 fL (9.4-12.3); Platelet Count 123 X10*3/uL (160-400); Red Cell Distribution Width 16.6 % (11.0-16.0)
[2020-06-10 07:40] LABS: WBC ABN SCTR FOR CBC 1
[2020-06-10 07:54] LABS: Anion Gap 12 (12-20); Blood Urea Nitrogen 20 mg/dL (9-16); Carbon Dioxide 17 mmol/L (22-29); Chloride 106 mmol/L (96-108); Creatinine Clr Calc Pharmacy 77.4; Estimated Glomerular Filt Rate > 60; Glucose Random 108 mg/dL (60-115); Potassium 3.9 mmol/l (3.3-5.1); Sodium 131 mmol/L (135-145)
[2020-06-10 08:48] LABS: Band Neutrophils Percent 20 % (3-5); Lymphocytes Percent Manual 1 % (20-40); Metamyelocytes Percent 1 %; Monocytes Percent Manual 5 % (2-11); Neutrophils Percent Manual 73 % (45-73)
[2020-06-10 08:49] LABS: Acanthocytes 2+
[2020-06-10 08:50] LABS: Ovalocytes 1+; Platelet Estimate SLIGHTLY DECREASED (NORMAL); Platelet Morphology Comment NORMAL; Polychromasia 1+; RBC Morphology NOTED
[2020-06-10 08:51] LABS: Lymphocytes Absolute Manual 0.1 X10*3/uL (0.6-4.8); Metamyelocytes Absolute 0.1 X10*3/uL; Monocytes Absolute Manual 0.4 X10*3/uL (0.0-1.2); Neutrophils Absolute Manual 6.9 X10*3/uL (2.2-7.9); White Blood Count 7.4 X10*3/uL (4.8-10.8)
[2020-06-10 08:54] LABS: Calcium 6.7 mg/dL (8.4-10.2)
[2020-06-10] MEDS: dexAMETHasone 4 MG TABLET PO ×2 (09:09→21:10)
[2020-06-10] MEDS: ondansetron HCL 4 MG/2 ML VIAL IVPUSH (09:25)
--- NOTE | 2020-06-10 10:02 | PM.HEMONCPN ---
Medical Summary - Medical Summary Date of Service: 06/10/20 Chief complaint: metastatic breast cancer Medical Summary: CT abdomen/pelvis performed 04/22/2020- 1. Multiple liver masses worrisome for metastatic disease. 2. Left adrenal mass which could represent metastatic disease. 3. Multiple bone lesions highly suspicious for metastatic disease. CT chest performed 04/23/2020 revealed- 1. Scattered sclerotic metastases thoracic spine. Pathologic fracture, possibly chronic, upper sternal body. 2. Scattered bilateral nodularity, largest medial left upper lobe abutting the aortic arch measuring 1.7 x 1.2 x 1.9 cm. 3. No hilar or mediastinal adenopathy or ascites. Liver, biopsy: Moderate to poorly differentiated carcinoma consistent with metastasis from patient's known primary breast carcinoma. Estrogen Receptor: Positive (strong intensity; 100% of tumor cells) Progesterone Receptor: Positive (variable weak/moderate intensity; 15% of tumor cells) HER2: Positive (3+) Started Arimidex 1 mg p.o. daily in April 2020. Interval History Interval history: She is tolerating her therapy well with no bleeding. She remains dyspneic on oxygen. She is slightly tachycardic Review of Systems - Eyes Reports dry eyes - ENT Reports system reviewed and no additional complaints, except as documented - Cardiovascular Reports fast heart rate - Respiratory Reports cough, Reports dyspnea on exertion - Gastrointestinal Reports belching - Genitourinary Reports absent period - Musculoskeletal Reports other - Integumentary/Breasts Skin/Breast: Reports other - Neurologic Reports system reviewed and no additional complaints, except as documented, Reports weakness, Denies focal weakness - Psychiatric Reports other - Endocrine Reports other - Hematologic/Lymphatic Reports easy bruising, Reports other - Allergic/Immunologic Reports other [facility] Medical History: Medical History (Last Reviewed 06/09/20 @ 18:03 by Roly Rosa MD) Breast cancer Hx of radiation therapy Hypertension Hypothyroidism Liver cancer Metastatic breast cancer Metastatic disease Mitral valve vegetation Neuropathy Sciatica Family History: Family History (Last Reviewed 06/09/20 @ 18:03 by Roly Rosa MD) Mother Colon cancer Surgical History: Surgical History (Last Reviewed 06/09/20 @ 18:03 by Roly Rosa MD) H/O knee surgery H/O left mastectomy History of bilateral mastectomy History of hip surgery History of left knee replacement Onset Date: ~09/2011 History of lumpectomy of left breast Onset Date: ~02/2012 Smoking status: Unknown if ever smoked Oncology Screenings - [place] Frail Scale Patient can count on others willing and able to meet needs: Sometimes [place] Frail Scale Score: 1 Frailty Level: Not Frail - [place] VTE Risk Pre-chemo platelet count >= 350,000/uL: No Hemoglobin level <10 g/dL or using RBC growth factors: No Pre-chemo leukocyte count > 11,000/uL: No Home Medications and Allergies Current Medications: Current Medications Generic Name Dose Route Start Last Admin Trade Name Freq PRN Reason Stop Dose Admin Acetaminophen 650 mg 06/09/20 04:10 Acetaminophen 325 Mg Tablet PO Q6H PRN Pain, Mild (Pain Scale 1-3) Anastrozole 1 mg 06/09/20 09:00 06/10/20 09:28 Anastrozole 1 Mg Tablet PO Not Given DAILY TRISHA Cyclobenzaprine HCl 10 mg 06/09/20 04:10 Cyclobenzaprine Hcl 10 Mg Tablet PO BEDTIME PRN Back Pain Dexamethasone 4 mg 06/09/20 09:00 06/10/20 09:09 Dexamethasone 4 Mg Tablet PO 4 mg BID TRISHA Administration Docusate Sodium 100 mg 06/09/20 09:00 06/10/20 09:29 Docusate Sodium 100 Mg Capsule PO Not Given DAILY TRISHA Docusate Sodium 100 mg 06/09/20 04:10 Docusate Sodium 100 Mg Capsule PO DAILY PRN Constipation Heparin Sodium/Sodium Chloride 25,000 unit in 250 mls @ 0 mls/hr 06/09/20 02:45 06/10/20 06:18 IVCONT 8 units/kg/hr .Q0M TRISHA 7.54 mls/hr Administration Protocol Per Protocol Metronidazole 500 mg in 100 mls @ 100 mls/hr 06/09/20 05:30 06/10/20 06:32 Flagyl IV Infused Q8H TRISHA Infusion Levofloxacin 750 mg in 150 mls @ 100 mls/hr 06/09/20 23:00 06/09/20 23:50 Levaquin IV Infused Q24H TRISHA Infusion Ondansetron HCl 4 mg 06/09/20 04:10 06/09/20 19:58 Ondansetron Hcl 4 Mg/2 Ml Vial IVPUSH 4 mg Q8H PRN Administration Nausea and Vomiting Oxycodone HCl 5 mg 06/09/20 04:10 06/09/20 19:58 Oxycodone Hcl Immed Release 5 Mg Tablet PO 5 mg Q6H PRN Administration Back Pain Pantoprazole Sodium 40 mg 06/09/20 06:30 06/10/20 05:23 Pantoprazole Sodium 40 Mg/10 Ml Vial IVPUSH 40 mg BID@0630,1630 TRISHA Administration Polyethylene Glycol 17 gm 06/09/20 09:00 06/10/20 09:29 Polyethylene Glycol 3350 17 Gm Powd.Pack PO Not Given BID [facility] Sodium Chloride 3 ml 06/09/20 08:00 06/10/20 09:09 0.9 % Sodium Chloride Flush 3 Ml Syringe IVFLUSH 3 ml QSHIFT [facility] Administration Home Medications Medication Instructions Recorded Confirmed Type cyclobenzaprine 1 tab PO BEDTIME PRN 04/22/20 06/09/20 History Allergies Allergy/AdvReac Type Severity Reaction Status Date / Time codeine [CODEINE] Allergy Intermediate VOMITING Verified 06/08/20 22:21 Benadryl Allergy Unknown Unknown Uncoded 04/22/20 19:05 codeine Allergy Unknown vomiting Uncoded 10/10/18 00:00 Codeine Sulfate AdvReac Mild Vomiting Uncoded 04/22/20 19:07 Exam Vital signs: Vital Signs Temp 96.6 F L 06/10/20 08:00 Pulse 126 H 06/10/20 08:00 Resp 28 H 06/10/20 09:59 BP 114/79 06/10/20 08:00 Pulse Ox 88 L 06/10/20 08:00 Intake & Output 06/09/20 06/10/20 06/10/20 18:59 06:59 18:59 Intake Total 1458.338 / 2319.570 861.232 / 2319.570 Output Total 200 / 200 Balance 1458.338 / 2119.570 661.232 / 2119.570 Urine Output (Average ml/kg/hr) 0.17 Intake: Intake, Oral Amount 600 / 960 360 / 960 Intake, IV Amount 858.338 / 1359.570 501.232 / 1359.570 levoFLOXacin/D5W 750 mg In 150 150 / 150 ml @ 100 mls/hr IV Q24H [facility] Rx# :[id number] metroNIDAZOLE/NS 500 mg In 100 200 / 400 200 / 400 ml @ 100 mls/hr IV Q8H [facility] Rx#: [id number] 0.9 % Sodium Chloride 1,000 ml 566.667 / 566.667 @ 100 mls/hr IVCONT .Q10H [facility] Rx#:[id number] Heparin Sodium,Porcine/1/2NS 25 91.671 / 242.903 151.232 / 242.903 ,000 unit In 250 ml @ Per Protocol IVCONT .Q0M TRISHA Rx#: [id number] Output: Output, Urine Amount 200 / 200 Other: Lunch % Eaten 25% Dinner % Eaten 50% Number of Incontinent Voids 2 Urine purewick Urine Color Yellow Weight 94.2 kg 95.5 kg Weight 95.5 kg Body Mass Index 33.0 - Constitutional Present: no acute distress, mild distress - Routine HEENT Exam Head: Present: atraumatic - Routine Neck Exam Present: full ROM - Routine Chest/Breast/Axilla Exam Breast: Present: right mastectomy, left mastectomy - Routine Respiratory Exam Present: decreased breath sounds - Routine Cardiovascular Exam Cardiovascular: Present: tachycardia - Routine Abdominal Exam Present: diminished bowel sounds - Routine Exam Patient deferred: external exam - Routine Extremities Exam Present: full ROM - Routine Back/Spine/Pelvis Exam Back/Spine: Present: full ROM - Routine Skin Exam Present: intact - Detailed Neurological Exam: Coma Scale Eye Opening: Spontaneous (4) - Routine Psychiatric Exam Present: normal thought process Data - Labs CBC & Chem 7: 06/10/20 06:50 06/10/20 06:50 Labs: 06/08/20 22:01 ECG 12 lead EKG Stat EKG Documentation DIRECTED 06/08/20 22:04 XR chest 1V Stat 06/08/20 22:15 0.9 % Sodium Chloride [Ns] 1,000 ml IVCONT 999 mls/hr 06/08/20 22:40 SARS-CoV2/FLU/RSV Stat 06/08/20 22:41 Lactic Acid Stat Partial Thromboplastin Time Stat Prothrombin Time INR Stat Troponin-I High Sensitivity Stat 06/08/20 22:50 Type and Screen Stat 06/08/20 22:57 0.9 % Sodium Chloride [Ns] 2,826 ml IVCONT 2,826 mls/hr Acetaminophen [Tylenol] 650 mg PO ONCE ONE 06/08/20 23:02 [id number] Stat 06/08/20 23:26 BMP [Basic Metabolic Panel] Stat Lipase Stat 06/08/20 23:27 Liver Panel Stat 06/08/20 23:31 levoFLOXacin/D5W [Levaquin] 750 mg in 150 ml IV ONCE 06/08/20 23:46 Albuterol Sulfate [Ventolin] 2 puff INHALE ONCE ONE 06/09/20 00:00 CT abdomen pelvis w con Stat CT angio chest PE protocol Stat levoFLOXacin/D5W [Levaquin] 0 mg in 0 ml IV As directed 06/09/20 01:23 ~Lactic Acid-LAB USE ONLY Stat 06/09/20 01:43 Transfer Order Routine 06/09/20 02:12 iohexoL 350 MG/ML [Omnipaque 350 MG/ML] 85 ml IV ONCE ONE 06/09/20 02:32 Heparin Sodium,Porcine 5,000 unit IVPUSH ONCE ONE 06/09/20 02:34 Heparin Sodium,Porcine 3,768 unit IVPUSH BOLUS PRN Heparin Sodium,Porcine 7,536 unit IVPUSH BOLUS PRN 06/09/20 02:38 Heparin Sodium,Porcine 3,768 unit IVPUSH BOLUS ONE 06/09/20 04:10 0.9 % Sodium Chloride [Ns] 1,000 ml IVCONT 100 mls/hr 06/09/20 04:50 Hemoglobin and Hematocrit Q12H Thyroid Stimulating Hormone Routine Troponin-I High Sensitivity Stat 06/09/20 05:45 Prothrombin Time INR DAILY 06/09/20 09:27 PTT Heparin Drip Stat 06/09/20 Breakfast NPO Diet 06/09/20 11:00 CA echo transthoracic complete Routine 06/09/20 11:20 B Type Natriuretic Peptide Routine Complete Blood Count Man Dif Routine PTT Heparin Drip Stat Troponin-I High Sensitivity Routine 06/09/20 13:14 Hemoglobin and Hematocrit Q12H PTT Heparin Drip Stat 06/09/20 20:50 PTT Heparin Drip Stat 06/10/20 03:15 PTT Heparin Drip Stat 06/10/20 06:50 Basic Metabolic Panel Routine Complete Blood Count Man Dif Routine Laboratory Last Values WBC 7.4 X10*3/uL (4.8-10.8) 06/10/20 06:50 WBC Cancelled 06/10/20 06:50 RBC 4.30 X10*6/uL (4.20-5.50) 06/10/20 06:50 RBC Cancelled 06/10/20 06:50 Hgb 12.0 g/dl (12.0-16.0) 06/10/20 06:50 Hgb Cancelled 06/10/20 06:50 Hct 36.5 % (37-47) L 06/10/20 06:50 Hct Cancelled 06/10/20 06:50 MCV 84.9 fL (80-98) 06/10/20 06:50 MCV Cancelled 06/10/20 06:50 MCH 27.9 pg (27.0-33.0) 06/10/20 06:50 MCH Cancelled 06/10/20 06:50 MCHC 32.9 g/dl (31.0-35.0) 06/10/20 06:50 MCHC Cancelled 06/10/20 06:50 RDW 16.6 % (11.0-16.0) H 06/10/20 06:50 RDW Cancelled 06/10/20 06:50 Plt Count 123 X10*3/uL (160-400) L 06/10/20 06:50 Plt Count Cancelled 06/10/20 06:50 MPV 10.2 fL (9.4-12.3) 06/10/20 06:50 MPV Cancelled 06/10/20 06:50 Immature Gran % (Auto) Cancelled 06/10/20 06:50 Immature Gran % (Auto) Cancelled 06/10/20 06:50 Neut % (Auto) Cancelled 06/10/20 06:50 Neut % (Auto) Cancelled 06/10/20 06:50 Lymph % (Auto) Cancelled 06/10/20 06:50 Lymph % (Auto) Cancelled 06/10/20 06:50 [place] % (Auto) Cancelled 06/10/20 06:50 [place] % (Auto) Cancelled 06/10/20 06:50 Eos % (Auto) Cancelled 06/10/20 06:50 Eos % (Auto) Cancelled 06/10/20 06:50 Baso % (Auto) Cancelled 06/10/20 06:50 Baso % (Auto) Cancelled 06/10/20 06:50 Lymph # (Auto) Cancelled 06/10/20 06:50 Lymph # (Auto) Cancelled 06/10/20 06:50 [place] # (Auto) Cancelled 06/10/20 06:50 [place] # (Auto) Cancelled 06/10/20 06:50 Eos # (Auto) Cancelled 06/10/20 06:50 Eos # (Auto) Cancelled 06/10/20 06:50 Baso # (Auto) Cancelled 06/10/20 06:50 Baso # (Auto) Cancelled 06/10/20 06:50 Abs Immat Gran (auto) Cancelled 06/10/20 06:50 Abs Immat Gran (auto) Cancelled 06/10/20 06:50 Absolute Neuts (auto) Cancelled 06/10/20 06:50 Absolute Neuts (auto) Cancelled 06/10/20 06:50 Absolute Nucleated RBC 0.000 X10*3/uL (0.0-0.012) 06/10/20 06:50 Absolute Nucleated RBC Cancelled 06/10/20 06:50 Nucleated RBC % (auto) 0.0 /100WBC (0.0-0.2) 06/10/20 06:50 Nucleated RBC % (auto) Cancelled 06/10/20 06:50 Neutrophils % (Manual) 73 % (45-73) 06/10/20 06:50 Band Neutrophils % 20 % (3-5) H 06/10/20 06:50 Lymphocytes % (Manual) 1 % (20-40) L 06/10/20 06:50 Monocytes % (Manual) 5 % (2-11) 06/10/20 06:50 Metamyelocytes % 1 % 06/10/20 06:50 Abs Neuts (Manual) 6.9 X10*3/uL (2.2-7.9) 06/10/20 06:50 Lymphocytes # (Manual) 0.1 X10*3/uL (0.6-4.8) L 06/10/20 06:50 Monocytes # (Manual) 0.4 X10*3/uL (0.0-1.2) 06/10/20 06:50 Metamyelocytes # 0.1 X10*3/uL 06/10/20 06:50 Nucleated RBCs 1 /100WBC (0-0) H 06/08/20 22:41 Toxic Granulation PRESENT 06/09/20 11:20 Toxic Vacuolation PRESENT 06/09/20 11:20 Platelet Estimate SLIGHTLY DECREASED (NORMAL) 06/10/20 06:50 Plt Morphology Comment NORMAL 06/10/20 06:50 RBC Morphology NOTED 06/10/20 06:50 Polychromasia 1+ 06/10/20 06:50 Ovalocytes 1+ 06/10/20 06:50 Wilson Cells 1+ 06/09/20 11:20 Acanthocytes (Spur) 2+ 06/10/20 06:50 PT 16.0 SEC (10.8-13.0) H 06/09/20 05:45 INR 1.3 (0.9-1.1) H 06/09/20 05:45 APTT 28.0 SEC (24.1-38.0) 06/08/20 22:41 PTT (Heparin Protocol) 91.6 SEC (53-77.9) H D 06/10/20 03:15 Sodium 131 mmol/L (135-145) L 06/10/20 06:50 Potassium 3.9 mmol/l (3.3-5.1) 06/10/20 06:50 Chloride 106 mmol/L (96-108) 06/10/20 06:50 Carbon Dioxide 17 mmol/L (22-29) L 06/10/20 06:50 Anion Gap 12 (12-20) 06/10/20 06:50 BUN 20 mg/dL (9-16) H 06/10/20 06:50 Creatinine 0.71 mg/dL (0.5-1.4) 06/10/20 06:50 Estim Creat Clear Calc 77.4 06/10/20 06:50 Estimated GFR > 60 06/10/20 06:50 Random Glucose 108 mg/dL (60-115) 06/10/20 06:50 Lactic Acid 2.1 mmol/L (0.5-2.0) H* 06/08/20 22:41 Lactic Acid Fup @ 2Hr 1.5 mmol/L (0.5-2.0) 06/09/20 01:23 Calcium 6.7 mg/dL (8.4-10.2) L 06/10/20 06:50 Total Bilirubin 0.4 mg/dL (0.0-1.0) 06/09/20 00:16 Direct Bilirubin 0.3 mg/dL (0.0-0.5) 06/09/20 00:16 AST 27 U/L (5-31) 06/09/20 00:16 ALT 27 U/L (0-31) 06/09/20 00:16 Alkaline Phosphatase 76 U/L (39-117) D 06/09/20 00:16 Troponin I High Sens 26.1 ng/L (<3.5-17.0) H 06/09/20 11:20 B-Natriuretic Peptide 64 pg/mL (<100) 06/09/20 11:20 Total Protein 4.1 g/dL (6.5-8.0) L D 06/09/20 00:16 Albumin 2.1 g/dL (3.5-5.0) L D 06/09/20 00:16 Lipase 10 U/L (8-78) 06/09/20 00:16 TSH 1.07 uIU/mL (0.32-4.0) 06/09/20 04:50 Stool Occult Blood POS (NEG) 06/08/20 23:02 Coronavirus (PCR) POSITIVE (Negative) A 06/08/20 22:40 Influenza Type A (PCR) NEGATIVE (Negative) 06/08/20 22:40 Influenza Type B (PCR) NEGATIVE (Negative) 06/08/20 22:40 RSV RNA Qual (PCR) NEGATIVE (Negative) 06/08/20 22:40 Blood Type O Positive 06/08/20 22:50 Antibody Screen NEGATIVE 06/08/20 22:50 Progress Note: A/P (1) COVID-19 Start date: 06/10/20 Status: Acute (2) Acute saddle pulmonary embolism Status: Acute - Time Spent With Patient Total time spent is greater than 50% in coordination of care (as documented) at patient's floor/unit and/or counseling patient: Continue current regimen and monitor the respiratory status and for bleeding. 15 - 24 minutes
--- NOTE | 2020-06-10 11:32 | HO.PM.IMPN ---
Subjective Subjective Date of Service: 06/10/20 Interval History: patient seen for follow-up on saddle embolus, patient's appear very anxious but denies any chest pain denies palpitation denies any body ache headache dizziness no other acute issues overnight, remains on high-flow oxygen, remains tachycardic and tachypneic. Review of Systems General no headache , no dizziness, no fever chills. CVS no chest pain, no palpitation. Respiratory complain of dry cough, denies shortness of breath Gastrointestinal no nausea, no vomiting, no abdominal pain Physical Exam Vital Signs: Vital Signs: Last Vital Signs Temp 96.6 F L 06/10/20 08:00 Pulse 126 H 06/10/20 08:00 Resp 28 H 06/10/20 09:59 BP 114/79 06/10/20 08:00 Pulse Ox 88 L 06/10/20 08:00 Body Mass Index 33.0 Objective Data Current Medications Generic Name Dose Route Start Last Admin Trade Name Freq PRN Reason Stop Dose Admin Acetaminophen 650 mg 06/09/20 04:10 Acetaminophen 325 Mg Tablet PO Q6H PRN Pain, Mild (Pain Scale 1-3) Anastrozole 1 mg 06/09/20 09:00 06/10/20 09:28 Anastrozole 1 Mg Tablet PO Not Given DAILY [facility] Cyclobenzaprine HCl 10 mg 06/09/20 04:10 Cyclobenzaprine Hcl 10 Mg Tablet PO BEDTIME PRN Back Pain Dexamethasone 4 mg 06/09/20 09:00 06/10/20 09:09 Dexamethasone 4 Mg Tablet PO 4 mg BID TRISHA Administration Docusate Sodium 100 mg 06/09/20 09:00 06/10/20 09:29 Docusate Sodium 100 Mg Capsule PO Not Given DAILY TRISHA Docusate Sodium 100 mg 06/09/20 04:10 Docusate Sodium 100 Mg Capsule PO DAILY PRN Constipation Heparin Sodium/Sodium Chloride 25,000 unit in 250 mls @ 0 mls/hr 06/09/20 02:45 06/10/20 06:18 IVCONT 8 units/kg/hr .Q0M TRISHA 7.54 mls/hr Administration Protocol Per Protocol Metronidazole 500 mg in 100 mls @ 100 mls/hr 06/09/20 05:30 06/10/20 06:32 Flagyl IV Infused Q8H TRISHA Infusion Lorazepam 0.5 mg 06/10/20 11:28 Lorazepam 2 Mg/Ml Vial IVPUSH Q6H PRN Anxiety Ondansetron HCl 4 mg 06/09/20 04:10 06/09/20 19:58 Ondansetron Hcl 4 Mg/2 Ml Vial IVPUSH 4 mg Q8H PRN Administration Nausea and Vomiting Oxycodone HCl 5 mg 06/09/20 04:10 06/09/20 19:58 Oxycodone Hcl Immed Release 5 Mg Tablet PO 5 mg Q6H PRN Administration Back Pain Pantoprazole Sodium 40 mg 06/09/20 06:30 06/10/20 05:23 Pantoprazole Sodium 40 Mg/10 Ml Vial IVPUSH 40 mg BID@0630,1630 TRISHA Administration Polyethylene Glycol 17 gm 06/09/20 09:00 06/10/20 09:29 Polyethylene Glycol 3350 17 Gm Powd.Pack PO Not Given BID TRISHA Sodium Chloride 3 ml 06/09/20 08:00 06/10/20 09:09 0.9 % Sodium Chloride Flush 3 Ml Syringe IVFLUSH 3 ml QSHIFT TRISHA Administration Labs CBC & Chem 7: 06/10/20 06:50 06/10/20 06:50 Microbiology Microbiology Results: Microbiology 06/08/20 22:50 Blood - Venous Blood Culture - Preliminary No growth after 24 hours. 06/08/20 22:40 Blood - Venous Blood Culture - Preliminary No growth after 24 hours. Assessment and Plan (1) Pulmonary embolism: Status: Acute (2) COVID-19: Status: Acute (3) Acute saddle pulmonary embolism: Status: Acute (4) Colitis with rectal bleeding: Status: Acute (5) Hypoxia: Status: Acute (6) Fracture of ramus of right pubis: Status: Acute (7) Closed sacral fracture: Status: Acute (8) Acute respiratory failure with hypoxia: Status: Acute Assessment and Plan: 80-year-old female with history of metastatic breast cancer to the liver embolic presents to the hospital with multiple complaints as above including bloody diarrhea, cough, shortness of breath, found to have COVID-19 as well as saddle emboli. # Acute saddle pulmonary embolism with right heart strain per CT of the chest patient denies chest pain or palpitation although appears very anxious short of breath and tachypneic, will continue IV heparin, hematocrit remains stable, no GI bleed noted, echocardiogram showed normal EF no wall motion abnormality and normal right-sided heart function, will check Doppler lower extremity to rule out DVT if positive DVT then will arrange for IVC filter, recent Doppler study 05/18 showed no DVT, continue supportive care oxygen and close tele monitoring , continue IV heparin for next 48 hours and will discuss further anticoagulation with Dr. Romano , Lovenox vs Eliquis. will place on Ativan for anxiety, persistent tachypnea, tachycardia likely due to hypoxia and anxiety will follow closely. # acute hypoxemic respiratory failure due to pulmonary embolism, pneumonia and COVID-19 infection continue high-flow oxygen, continue supportive care gradually wean oxygen, continue dexamethasone monitor respiratory status closely with a low threshold to transfer to ICU, case discussed with ditch rider they are aware of patient's clinical status. # sepsis with COVID-19 infection and pneumonia has bilateral infiltrate on CT scan, with a positive COVID results, hypoxia as well as cough and fever, patient on dexamethasone at home 4 mg b.i.d. Will continue the same continue IV antibiotics Flagyl and Levaquin that will cover colitis also, blood cultures x2 were negative # lower GI bleed as per patient she had diarrhea for several days, that was attributed to recent radiation therapy, as per patient she noted blood on toilet paper but did not have any blood in stool, no overt GI bleed since presenting to floor, CT of the abdomen demonstrates colitis / enterocolitis which is most likely due to radiation. # metastatic breast cancer to liver and bone, received palliative radiation therapy to spine, has fracture of ramus of right pubis per CT with patient stating that she has cancer in that area patient seen by Dr. Romano she is on hormonal therapy with Arimidex 1 mg p.o. daily since April 2020. She was supposed to start Herceptin for her HER2 positive breast cancer but this cannot be done for the time will need outpatient follow-up with Dr. Romano upon discharge. # lactic acidosis most likely secondary sepsis resolved # hypothyroidism per record and patient she is no longer on levothyroxine, TSH # code status discussed with patient she is awake alert and wishes to be full code at this time. DVT prophylaxis: Heparin GGT
[2020-06-10] MEDS: LORazepam 2 MG/ML VIAL 0.5 MG IVPUSH ×3 (11:45→23:50)
[2020-06-10] MEDS: oxyCODONE HCl Immed Release 5 MG TABLET PO (11:47)
[2020-06-10 12:13] LABS: PTT Heparin Drip 74.6 SEC (53-77.9)
[2020-06-10] MEDS: levoFLOXacin/D5W 500 MG/100 ML PIGGYBACK 100 MG IV (12:35)
--- NOTE | 2020-06-10 14:40 | PC.NURSE ---
Pt sat 88-945 on 50L hi [place]. When pt falls asleep pt is mouth breather and desat to 77-85% - pt easily wakes up and can breathe through nose again getting more o2 raising levels but pt was put on nonrebreather in order to get o2 in her mouth and keep up while sleeping; - the hiflo keeps sat 88-94%when awake
--- NOTE | 2020-06-10 15:23 | PC.NURSE ---
Pt pretty anxious in bed Hr 130s - RR 20s pt visibly SOB, stating she is anxious and needs something to help get her out of sorts Pt does have a 2mg prn morphine for shortness of breath - explained this to pt - but pt stated when he was on morphine it put him in a trance so does not want to take any morphine - offered her one dose and told her it wouldnt be scheduled - pt refused and I explained that was fine. Discussed w/MD. Her PRN ativan not due for 2 more hr. MD is currently adjusting her orders now - see MAR for details. In AM pt also refused to be turned -explained importance of and later in am pt did allow us to turn her to side w.pillows. Will continue to encourage repo and proper skin hygiene. Pt seems a little depressed at times and hard on herself- she seems to do well with encouragement and therapeutic communication as appropriate
[2020-06-10] MEDS: 0.9 % Sodium Chloride 1,000 ML 100 ML IVCONT (16:08)
[2020-06-10 17:05] LABS: PTT Heparin Drip 49.3 SEC (53-77.9)
[2020-06-10] MEDS: Heparin Sodium,Porcine 5,000 UNIT/ML VIAL 3820 UNIT IVPUSH (17:39)
[2020-06-10] MEDS: Morphine Sulfate 2 MG/ML CARTRIDGE IVPUSH (23:50)
[2020-06-11] VITALS (21 sets, daily range): BP systolic 105–138; BP diastolic 55–81; PULSE 108–136; RESP 17–116; TEMP 36.3–37.9; O2SAT 81–98; BMI 34.2
--- NOTE | 2020-06-11 | XR_ITS ---
EXAMINATION: XR CHEST CLINICAL INFORMATION: Shortness of breath COMPARISON: 06/08/2020 TECHNIQUE: Frontal view of the chest was obtained. FINDINGS: Cardiac leads overlie the chest. The lungs are well expanded. Worsening bilateral airspace opacities. No pleural effusion or pneumothorax. The cardiomediastinal silhouette is unchanged. XR/XR chest 1V IMPRESSION: Worsening bilateral airspace opacities. This could be infectious in etiology. Alternatively edema is a possibility.
--- NOTE | 2020-06-11 | US_ITS ---
EXAMINATION: US VENOUS ULTRASOUND WITH DOPPLER LOWER EXTREMITY, BILATERAL CLINICAL INFORMATION: PE COMPARISON: Previous lower extremity venous ultrasound 05/17/2020 TECHNIQUE: Ultrasound of the deep veins is performed from the hip to the calf with compression sonography and color and pulse Doppler assessment. Spectral analysis with color-flow imaging is performed. FINDINGS: RIGHT: There is normal venous compression and respiratory variation and augmented flow. The visualized common femoral vein, superficial femoral vein, profunda femoral vein, popliteal vein, and the trifurcation region shows no evidence of deep venous thrombosis. There is no significant popliteal fossa cyst. LEFT: There is nonocclusive thrombus seen in the left superficial femoral vein near the junction with the common femoral vein. The left common femoral, profunda, popliteal and visualized posterior tibial veins in the calf are patent. There is no Santizo's cyst. US/US venous duplex LE BI IMPRESSION: Left superficial femoral vein DVT near the common femoral vein. No evidence of right leg DVT.
[2020-06-11 00:50] LABS: PTT Heparin Drip 152.7 SEC (53-77.9)
--- NOTE | 2020-06-11 02:52 | PC.NURSE ---
Pt continues to need high flow cannula at 60L and 100% as welkl as NRB at 15 lpm and this is mainitaing O2 saturation at 85-88% which respiratory therapy and Dr Hood are aware of. Pt denies any CP or increasing SOB but edema is worsening--pt's hands now swollen and leaking fluid when lab attempted to draw PTT-HD and pt has 2+ pitting edema to bilateral lower extremities. Per Dr Elkins, CXR ordered. Will continue to monitor closely as pt is very positional with O2 and is doing best when sitting upright. Had attempted to put pt towards prone position on her side but pt was unale to tolerate and O2 sats decreased to 79-80% so pt back sitting up in bed resting quietly at this times. Safety measures in place and call ness within reach. Will continue to monitor closely.
[2020-06-11 03:22] LABS: PTT Heparin Drip 80.1 SEC (53-77.9)
[2020-06-11] MEDS: metroNIDAZOLE/NS 500 MG/100 ML PIGGYBACK 100 MG IV ×3 (04:38→22:02)
[2020-06-11] MEDS: Furosemide 40 MG/4 ML VIAL IVPUSH (04:57)
--- NOTE | 2020-06-11 05:09 | PM.EVENT ---
Event Note Date of Service: 06/11/20 Event Note: 80-year-old female with a past medical history of metastatic breast cancer admitted To Hospital Medicine on 06/09/2020 with new subtle embolism and COVID-19. Has been on high-flow and non-rebreather since admission. Overnight patient has become more hypoxic with periods to the 70s. She was started on IV fluids earlier during the day. During my assessment the patient is alert, able to take a couple deep breath and get oxygenation to 86-87%. Significant amount of edema in bilateral upper extremity and bilateral lower extremities. Chest x-ray from 3:00 a.m. shows pulmonary edema Recommendations: Diurese patient with 40 of Lasix Stop continuous IV fluids no need to transfer the patient to the ICU at this time. Please call Back ICU if patient's conditions worsen
--- NOTE | 2020-06-11 05:32 | PC.NURSE ---
Pt was seen by ICU [facility] [employer] [facility] [facility] at 0445, after pt noted to have increased edema to upper extremities and worsening SOB and decreasing Sao2 levels to high 70's to low 80's. Lung sounds diminished. Pt denies CP or palpitations. Only C/O slight worsening in SOB, with pt on maximum of 60L/100% on high flow cannula and 15 lpm NRB. CXR had been ordered and completed. Per ICU [facility] [facility] [facility], order given for Lasix 40 mg IVP. Lasix administered w/o incident and side effects of Lasix explained to pt. Purewick in place. Sa02 remaining in mid-to upper 80's after Lasix admin and pt is resting comfortably in bed. Will continue to monitor and safety measures in place.
[2020-06-11] MEDS: Pantoprazole Sodium 40 MG/10 ML VIAL IVPUSH ×2 (06:01→16:15)
[2020-06-11 07:18] LABS: Hematocrit 37.5 % (37-47); Hemoglobin 12.3 g/dl (12.0-16.0); Mean Corpuscular HGB Conc 32.8 g/dl (31.0-35.0); Mean Corpuscular Hemoglobin 28.1 pg (27.0-33.0); Mean Corpuscular Volume 85.8 fL (80-98); Mean Platelet Volume 10.7 fL (9.4-12.3); Platelet Count 136 X10*3/uL (160-400); Red Blood Count 4.37 X10*6/uL (4.20-5.50); Red Cell Distribution Width 17.2 % (11.0-16.0); White Blood Count 11.3 X10*3/uL (4.8-10.8)
[2020-06-11 08:04] LABS: Anion Gap 16 (12-20); Blood Urea Nitrogen 25 mg/dL (9-16); Calcium 6.8 mg/dL (8.4-10.2); Carbon Dioxide 17 mmol/L (22-29); Chloride 104 mmol/L (96-108); Creatinine Clr Calc Pharmacy 69.2; Estimated Glomerular Filt Rate > 60; Glucose Random 82 mg/dL (60-115); Potassium 4.6 mmol/l (3.3-5.1); Sodium 132 mmol/L (135-145)
[2020-06-11 08:27] LABS: Band Neutrophils Percent 11 % (3-5); Lymphocytes Absolute Manual 0.2 X10*3/uL (0.6-4.8); Lymphocytes Percent Manual 2 % (20-40); Metamyelocytes Absolute 0.2 X10*3/uL; Metamyelocytes Percent 2 %; Monocytes Absolute Manual 0.1 X10*3/uL (0.0-1.2); Monocytes Percent Manual 1 % (2-11); Neutrophils Absolute Manual 10.7 X10*3/uL (2.2-7.9); Neutrophils Percent Manual 84 % (45-73)
[2020-06-11 08:28] LABS: Burr Cells 2+; Platelet Estimate SLIGHTLY DECREASED (NORMAL); Platelet Morphology Comment NORMAL; RBC Morphology NOTED
[2020-06-11 08:29] LABS: Acanthocytes 1+; Ovalocytes 1+
[2020-06-11] MEDS: dexAMETHasone 4 MG TABLET PO ×2 (08:51→22:01)
[2020-06-11] MEDS: 0.9 % Sodium Chloride Flush 3 ML SYRINGE IVFLUSH ×2 (08:51→16:15)
--- NOTE | 2020-06-11 09:06 | P.PNIM_ITS ---
Subjective Subjective Date of Service: 06/11/20 Interval History: Seen in f/u for acute hypoxic respiratory failure related to saddle embolism and covid infection..Patient seems in distress with tachypnea, tachycardia and persistent hypoxia on 100, with oxygen at 83 and HR in 140s. ROS: Gen: no fever Resp: +SOB Physical Exam Vital Signs: Vital Signs: Last Vital Signs Temp 97.3 F 06/11/20 08:00 Pulse 129 H 06/11/20 08:00 Resp 22 H 06/11/20 08:00 BP 131/65 06/11/20 08:00 Pulse Ox 83 L 06/11/20 08:33 Body Mass Index 34.2 General: AO X 3, in acute respiratory distress Resp: Using accesroy muscles CVS: S1,S2,tachycardia GI: NT, Skin: No rash Neuro: motor grossly intact Psych: Anxious Objective Data Current Medications Generic Name Dose Route Start Last Admin Trade Name Freq PRN Reason Stop Dose Admin Acetaminophen 650 mg 06/09/20 04:10 Acetaminophen 325 Mg Tablet PO Q6H PRN Pain, Mild (Pain Scale 1-3) Anastrozole 1 mg 06/09/20 09:00 06/11/20 08:56 Anastrozole 1 Mg Tablet PO Not Given DAILY [facility] Cyclobenzaprine HCl 10 mg 06/09/20 04:10 Cyclobenzaprine Hcl 10 Mg Tablet PO BEDTIME PRN Back Pain Dexamethasone 4 mg 06/09/20 09:00 06/11/20 08:51 Dexamethasone 4 Mg Tablet PO 4 mg BID TRISHA Administration Docusate Sodium 100 mg 06/09/20 09:00 06/11/20 08:56 Docusate Sodium 100 Mg Capsule PO Not Given DAILY TRISHA Docusate Sodium 100 mg 06/09/20 04:10 Docusate Sodium 100 Mg Capsule PO DAILY PRN Constipation Heparin Sodium (Porcine) 3,820 unit 06/10/20 17:28 06/10/20 17:39 Heparin Sodium,Porcine 5,000 Unit/Ml Vial 40 unit/kg (3820 unit) 3,820 unit IVPUSH Administration BOLUS PRN 40 unit/kg - Heparin Protocol Protocol Heparin Sodium (Porcine) 7,640 unit 06/10/20 17:28 Heparin Sodium,Porcine 5,000 Unit/Ml Vial 80 unit/kg (7640 unit) IVPUSH BOLUS PRN HEPARINPR8 Protocol Heparin Sodium/Sodium Chloride 25,000 unit in 250 mls @ 0 mls/hr 06/09/20 02:45 06/11/20 04:03 IVCONT 6 units/kg/hr .Q0M TRISHA 5.65 mls/hr Titration Protocol Per Protocol Metronidazole 500 mg in 100 mls @ 100 mls/hr 06/09/20 05:30 06/11/20 06:07 Flagyl IV Infused Q8H TRISHA Infusion Levofloxacin 500 mg in 100 mls @ 100 mls/hr 06/10/20 12:00 06/10/20 14:36 Levaquin IV Infused Q24H TRISHA Infusion Lorazepam 0.5 mg 06/10/20 15:48 06/10/20 23:50 Lorazepam 2 Mg/Ml Vial IVPUSH 0.5 mg Q4H PRN Administration Anxiety Morphine Sulfate 2 mg 06/10/20 11:56 06/10/20 23:50 Morphine Sulfate 2 Mg/Ml Cartridge IVPUSH 2 mg Q3H PRN Administration Shortness of Breath Ondansetron HCl 4 mg 06/09/20 04:10 06/10/20 09:25 Ondansetron Hcl 4 Mg/2 Ml Vial IVPUSH 4 mg Q8H PRN Administration Nausea and Vomiting Oxycodone HCl 5 mg 06/09/20 04:10 06/10/20 11:47 Oxycodone Hcl Immed Release 5 Mg Tablet PO 5 mg Q6H PRN Administration Back Pain Pantoprazole Sodium 40 mg 06/09/20 06:30 06/11/20 06:01 Pantoprazole Sodium 40 Mg/10 Ml Vial IVPUSH 40 mg BID@0630,1630 [facility] Administration Polyethylene Glycol 17 gm 06/09/20 09:00 06/11/20 08:57 Polyethylene Glycol 3350 17 Gm Powd.Pack PO Not Given BID TRISHA Sodium Chloride 3 ml 06/09/20 08:00 06/11/20 08:51 0.9 % Sodium Chloride Flush 3 Ml Syringe IVFLUSH 3 ml QSHIFT TRISHA Administration Labs CBC & Chem 7: 06/11/20 05:47 06/11/20 05:47 Microbiology Microbiology Results: Microbiology 06/08/20 22:50 Blood - Venous Blood Culture - Preliminary No growth after 48 hours. 06/08/20 22:40 Blood - Venous Blood Culture - Preliminary No growth after 48 hours. Assessment and Plan (1) Pulmonary embolism: Status: Acute (2) COVID-19: Status: Acute (3) Acute saddle pulmonary embolism: Status: Acute (4) Colitis with rectal bleeding: Status: Acute (5) Hypoxia: Status: Acute (6) Fracture of ramus of right pubis: Status: Acute (7) Closed sacral fracture: Status: Acute (8) Acute respiratory failure with hypoxia: Status: Acute Assessment and Plan: 80-year-old female with history of metastatic breast cancer to the liver embolic presents to the hospital with multiple complaints as above including bloody diarrhea, cough, shortness of breath, found to have COVID-19 as well as saddle emboli. # Acute saddle pulmonary embolism with right heart strain on CT, with acute hypoxic respiratory failure and covid infection, PNA -She is on max oxygen with O2 sat in 80s and HR in 140, very anxious, tachypnic and using accessory muclsle, she is criticcally ill and I have discussed with Dr. Rosa and will be transfer to ICU for higher level of care, possibly mechanical ventilation. Continue #Saddle PE--negtive DVT, continue IV heparin #Covid infection/covid PNA--continue Oxygen and Dexamethasone. continue Abx with Flagyl and Levaquin. Blood cultures negative todaate # lower GI bleed as per patient she had diarrhea for several days, that was attributed to recent radiation therapy, as per patient she noted blood on toilet paper but did not have any blood in stool, no overt GI bleed since presenting to floor, CT of the abdomen demonstrates colitis / enterocolitis which is most likely due to radiation. # metastatic breast cancer to liver and bone, received palliative radiation therapy to spine, has fracture of ramus of right pubis per CT with patient stating that she has cancer in that area patient seen by Dr. Romano she is on hormonal therapy with Arimidex 1 mg p.o. daily since April 2020. She was supposed to start Herceptin for her HER2 positive breast cancer but this cannot be done for the time will need outpatient follow-up with Dr. Romano upon discharge. # lactic acidosis most likely secondary sepsis resolved # hypothyroidism per record and patient she is no longer on levothyroxine, TSH # code status discussed with patient she is awake alert and wishes to be full code at this time. DVT prophylaxis: Heparin GGT
--- NOTE | 2020-06-11 10:12 | MHC.CM.PN ---
[facility] with new referral to [facility]. Further assessment will be needed for DC needs.Transportation BLS vs Family. CM will follow.
--- NOTE | 2020-06-11 10:28 | P.PNHO_ITS ---
Medical Summary - Medical Summary Date of Service: 06/11/20 Medical Summary: CT abdomen/pelvis performed 04/22/2020- 1. Multiple liver masses worrisome for metastatic disease. 2. Left adrenal mass which could represent metastatic disease. 3. Multiple bone lesions highly suspicious for metastatic disease. CT chest performed 04/23/2020 revealed- 1. Scattered sclerotic metastases thoracic spine. Pathologic fracture, possibly chronic, upper sternal body. 2. Scattered bilateral nodularity, largest medial left upper lobe abutting the aortic arch measuring 1.7 x 1.2 x 1.9 cm. 3. No hilar or mediastinal adenopathy or ascites. Liver, biopsy: Moderate to poorly differentiated carcinoma consistent with metastasis from patient's known primary breast carcinoma. Estrogen Receptor: Positive (strong intensity; 100% of tumor cells) Progesterone Receptor: Positive (variable weak/moderate intensity; 15% of tumor cells) HER2: Positive (3+) Started Arimidex 1 mg p.o. daily in April 2020. Interval History Interval history: She became hypoxic, tachypneic and tachycardic last night and was transferred to the ICU and is on BIPAP Review of Systems - Neurologic Reports system reviewed and no additional complaints, except as documented, Reports weakness, Denies focal weakness - Psychiatric Reports abnormal sleep pattern - Endocrine Reports other - Hematologic/Lymphatic Reports easy bruising, Reports other - Allergic/Immunologic Reports other [facility] Medical History: Medical History (Last Reviewed 06/09/20 @ 18:03 by Roly Rosa MD) Breast cancer Hx of radiation therapy Hypertension Hypothyroidism Liver cancer Metastatic breast cancer Metastatic disease Mitral valve vegetation Neuropathy Sciatica Family History: Family History (Last Reviewed 06/09/20 @ 18:03 by Roly Rosa MD) Mother Colon cancer Surgical History: Surgical History (Last Reviewed 06/09/20 @ 18:03 by Roly Rosa MD) H/O knee surgery H/O left mastectomy History of bilateral mastectomy History of hip surgery History of left knee replacement Onset Date: ~09/2011 History of lumpectomy of left breast Onset Date: ~02/2012 Smoking status: Unknown if ever smoked Home Medications and Allergies Current Medications: Current Medications Generic Name Dose Route Start Last Admin Trade Name Freq PRN Reason Stop Dose Admin Acetaminophen 650 mg 06/09/20 04:10 Acetaminophen 325 Mg Tablet PO Q6H PRN Pain, Mild (Pain Scale 1-3) Anastrozole 1 mg 06/09/20 09:00 06/11/20 08:56 Anastrozole 1 Mg Tablet PO Not Given DAILY TRISHA Dexamethasone 4 mg 06/09/20 09:00 06/11/20 08:51 Dexamethasone 4 Mg Tablet PO 4 mg BID TRISHA Administration Docusate Sodium 100 mg 06/09/20 09:00 06/11/20 08:56 Docusate Sodium 100 Mg Capsule PO Not Given DAILY TRISHA Heparin Sodium (Porcine) 3,820 unit 06/10/20 17:28 06/10/20 17:39 Heparin Sodium,Porcine 5,000 Unit/Ml Vial 40 unit/kg (3820 unit) 3,820 unit IVPUSH Administration BOLUS PRN 40 unit/kg - Heparin Protocol Protocol Heparin Sodium (Porcine) 7,640 unit 06/10/20 17:28 Heparin Sodium,Porcine 5,000 Unit/Ml Vial 80 unit/kg (7640 unit) IVPUSH BOLUS PRN HEPARINPR8 Protocol Heparin Sodium/Sodium Chloride 25,000 unit in 250 mls @ 0 mls/hr 06/09/20 02:45 06/11/20 04:03 IVCONT 6 units/kg/hr .Q0M TRISHA 5.65 mls/hr Titration Protocol Per Protocol Metronidazole 500 mg in 100 mls @ 100 mls/hr 06/09/20 05:30 06/11/20 06:07 Flagyl IV Infused Q8H TRISHA Infusion Levofloxacin 500 mg in 100 mls @ 100 mls/hr 06/10/20 12:00 06/10/20 14:36 Levaquin IV Infused Q24H TRISHA Infusion Albumin Human 100 mls @ 100 mls/hr 06/11/20 10:00 Kedbumin 25 % IV 06/12/20 04:59 Q6H TRISHA Furosemide 500 mg/ IV 50 mls @ 0.5 mls/hr 06/11/20 10:00 Miscellaneous Supplies IVCONT .Q24H TRISHA 5 MG/HR Lorazepam 0.5 mg 06/10/20 15:48 06/10/20 23:50 Lorazepam 2 Mg/Ml Vial IVPUSH 0.5 mg Q4H PRN Administration Anxiety Ondansetron HCl 4 mg 06/09/20 04:10 06/10/20 09:25 Ondansetron Hcl 4 Mg/2 Ml Vial IVPUSH 4 mg Q8H PRN Administration Nausea and Vomiting Oxycodone HCl 5 mg 06/09/20 04:10 06/10/20 11:47 Oxycodone Hcl Immed Release 5 Mg Tablet PO 5 mg Q6H PRN Administration Back Pain Pantoprazole Sodium 40 mg 06/09/20 06:30 06/11/20 06:01 Pantoprazole Sodium 40 Mg/10 Ml Vial IVPUSH 40 mg BID@0630,1630 [facility] Administration Polyethylene Glycol 17 gm 06/09/20 09:00 06/11/20 08:57 Polyethylene Glycol 3350 17 Gm Powd.Pack PO Not Given BID TRISHA Sodium Chloride 3 ml 06/09/20 08:00 06/11/20 08:51 0.9 % Sodium Chloride Flush 3 Ml Syringe IVFLUSH 3 ml QSHIFT TRISHA Administration Home Medications Medication Instructions Recorded Confirmed Type cyclobenzaprine 1 tab PO BEDTIME PRN 04/22/20 06/09/20 History Allergies Allergy/AdvReac Type Severity Reaction Status Date / Time codeine [CODEINE] Allergy Intermediate VOMITING Verified 06/08/20 22:21 Benadryl Allergy Unknown Unknown Uncoded 04/22/20 19:05 codeine Allergy Unknown vomiting Uncoded 10/10/18 00:00 Codeine Sulfate AdvReac Mild Vomiting Uncoded 04/22/20 19:07 Exam Vital signs: Vital Signs Temp 96.6 F L 06/10/20 08:00 Pulse 126 H 06/10/20 08:00 Resp 28 H 06/10/20 09:59 BP 114/79 06/10/20 08:00 Pulse Ox 88 L 06/10/20 08:00 Intake & Output 06/09/20 06/10/20 06/10/20 18:59 06:59 18:59 Intake Total 1458.338 / 2319.570 861.232 / 2319.570 Output Total 200 / 200 Balance 1458.338 / 2119.570 661.232 / 2119.570 Urine Output (Average ml/kg/hr) 0.17 Intake: Intake, Oral Amount 600 / 960 360 / 960 Intake, IV Amount 858.338 / 1359.570 501.232 / 1359.570 levoFLOXacin/D5W 750 mg In 150 150 / 150 ml @ 100 mls/hr IV Q24H [facility] Rx# :[id number] metroNIDAZOLE/NS 500 mg In 100 200 / 400 200 / 400 ml @ 100 mls/hr IV Q8H [facility] Rx#: [id number] 0.9 % Sodium Chloride 1,000 ml 566.667 / 566.667 @ 100 mls/hr IVCONT .Q10H [facility] Rx#:[id number] Heparin Sodium,Porcine/1/2NS 25 91.671 / 242.903 151.232 / 242.903 ,000 unit In 250 ml @ Per Protocol IVCONT .Q0M [facility] Rx#: [id number] Output: Output, Urine Amount 200 / 200 Other: Lunch % Eaten 25% Dinner % Eaten 50% Number of Incontinent Voids 2 Urine purewick Urine Color Yellow Weight 94.2 kg 95.5 kg Weight 95.5 kg Body Mass Index 33.0 - Constitutional Present: no acute distress, mild distress - Routine HEENT Exam Head: Present: atraumatic - Routine Neck Exam Present: full ROM - Routine Respiratory Exam Present: decreased breath sounds - Routine Cardiovascular Exam Cardiovascular: Present: tachycardia - Routine Abdominal Exam Present: diminished bowel sounds - Routine Exam Patient deferred: external exam - Routine Extremities Exam Present: full ROM - Routine Back/Spine/Pelvis Exam Back/Spine: Present: full ROM - Routine Skin Exam Present: intact - Detailed Neurological Exam: Coma Scale Eye Opening: Spontaneous (4) - Routine Psychiatric Exam Present: normal thought process Data - Labs CBC & Chem 7: 06/11/20 05:47 06/11/20 05:47 Labs: 06/08/20 22:01 ECG 12 lead EKG Stat EKG Documentation DIRECTED 06/08/20 22:04 XR chest 1V Stat 06/08/20 22:15 0.9 % Sodium Chloride [Ns] 1,000 ml IVCONT 999 mls/hr 06/08/20 22:40 SARS-CoV2/FLU/RSV Stat 06/08/20 22:41 Lactic Acid Stat Partial Thromboplastin Time Stat Prothrombin Time INR Stat Troponin-I High Sensitivity Stat 06/08/20 22:50 Type and Screen Stat 06/08/20 22:57 0.9 % Sodium Chloride [Ns] 2,826 ml IVCONT 2,826 mls/hr Acetaminophen [Tylenol] 650 mg PO ONCE ONE 06/08/20 23:02 [id number] Stat 06/08/20 23:26 BMP [Basic Metabolic Panel] Stat Lipase Stat 06/08/20 23:27 Liver Panel Stat 06/08/20 23:31 levoFLOXacin/D5W [Levaquin] 750 mg in 150 ml IV ONCE 06/08/20 23:46 Albuterol Sulfate [Ventolin] 2 puff INHALE ONCE ONE 06/09/20 00:00 CT abdomen pelvis w con Stat CT angio chest PE protocol Stat levoFLOXacin/D5W [Levaquin] 0 mg in 0 ml IV As directed 06/09/20 01:23 ~Lactic Acid-LAB USE ONLY Stat 06/09/20 01:43 Transfer Order Routine 06/09/20 02:12 iohexoL 350 MG/ML [Omnipaque 350 MG/ML] 85 ml IV ONCE ONE 06/09/20 02:32 Heparin Sodium,Porcine 5,000 unit IVPUSH ONCE ONE 06/09/20 02:34 Heparin Sodium,Porcine 3,768 unit IVPUSH BOLUS PRN Heparin Sodium,Porcine 7,536 unit IVPUSH BOLUS PRN 06/09/20 02:38 Heparin Sodium,Porcine 3,768 unit IVPUSH BOLUS ONE 06/09/20 04:10 0.9 % Sodium Chloride [Ns] 1,000 ml IVCONT 100 mls/hr Cyclobenzaprine HCl [Flexeril] 10 mg PO BEDTIME PRN Docusate Sodium [Colace] 100 mg PO DAILY PRN 06/09/20 04:50 Hemoglobin and Hematocrit Q12H Thyroid Stimulating Hormone Routine Troponin-I High Sensitivity Stat 06/09/20 05:45 Prothrombin Time INR DAILY 06/09/20 09:27 PTT Heparin Drip Stat 06/09/20 Breakfast NPO Diet 06/09/20 11:00 CA echo transthoracic complete Routine 06/09/20 11:20 B Type Natriuretic Peptide Routine Complete Blood Count Man Dif Routine PTT Heparin Drip Stat Troponin-I High Sensitivity Routine 06/09/20 13:14 Hemoglobin and Hematocrit Q12H PTT Heparin Drip Stat 06/09/20 20:50 PTT Heparin Drip Stat 06/09/20 23:00 levoFLOXacin/D5W [Levaquin] 750 mg in 150 ml IV Q24H 06/10/20 03:15 PTT Heparin Drip Stat 06/10/20 06:50 Basic Metabolic Panel Routine Complete Blood Count Man Dif Routine 06/10/20 11:28 PTT Heparin Drip Stat LORazepam [Ativan] 0.5 mg IVPUSH Q6H PRN 06/10/20 11:56 Morphine Sulfate 2 mg IVPUSH Q3H PRN 06/10/20 15:47 0.9 % Sodium Chloride [Ns] 1,000 ml IVCONT 100 mls/hr 06/10/20 16:46 PTT Heparin Drip Stat 06/10/20 23:48 PTT Heparin Drip Stat 06/11/20 XR chest 1V Stat US venous duplex LE BI Routine 06/11/20 02:05 PTT Heparin Drip Stat 06/11/20 04:49 Furosemide [Lasix] 40 mg IVPUSH STAT STA 06/11/20 04:55 Furosemide [Lasix] 40 mg .ROUTE .STK-MED ONE 06/11/20 05:47 Basic Metabolic Panel Routine Complete Blood Count Man Dif Routine 06/11/20 09:03 Transfer Order Routine Laboratory Last Values WBC 11.3 X10*3/uL (4.8-10.8) H 06/11/20 05:47 RBC 4.37 X10*6/uL (4.20-5.50) 06/11/20 05:47 Hgb 12.3 g/dl (12.0-16.0) 06/11/20 05:47 Hct 37.5 % (37-47) 06/11/20 05:47 MCV 85.8 fL (80-98) 06/11/20 05:47 MCH 28.1 pg (27.0-33.0) 06/11/20 05:47 MCHC 32.8 g/dl (31.0-35.0) 06/11/20 05:47 RDW 17.2 % (11.0-16.0) H 06/11/20 05:47 Plt Count 136 X10*3/uL (160-400) L 06/11/20 05:47 MPV 10.7 fL (9.4-12.3) 06/11/20 05:47 Immature Gran % (Auto) Cancelled 06/11/20 05:47 Neut % (Auto) Cancelled 06/11/20 05:47 Lymph % (Auto) Cancelled 06/11/20 05:47 [place] % (Auto) Cancelled 06/11/20 05:47 Eos % (Auto) Cancelled 06/11/20 05:47 Baso % (Auto) Cancelled 06/11/20 05:47 Lymph # (Auto) Cancelled 06/11/20 05:47 [place] # (Auto) Cancelled 06/11/20 05:47 Eos # (Auto) Cancelled 06/11/20 05:47 Baso # (Auto) Cancelled 06/11/20 05:47 Abs Immat Gran (auto) Cancelled 06/11/20 05:47 Absolute Neuts (auto) Cancelled 06/11/20 05:47 Absolute Nucleated RBC 0.000 X10*3/uL (0.0-0.012) 06/11/20 05:47 Nucleated RBC % (auto) 0.0 /100WBC (0.0-0.2) 06/11/20 05:47 Neutrophils % (Manual) 84 % (45-73) H 06/11/20 05:47 Band Neutrophils % 11 % (3-5) H 06/11/20 05:47 Lymphocytes % (Manual) 2 % (20-40) L 06/11/20 05:47 Monocytes % (Manual) 1 % (2-11) L 06/11/20 05:47 Metamyelocytes % 2 % 06/11/20 05:47 Abs Neuts (Manual) 10.7 X10*3/uL (2.2-7.9) H 06/11/20 05:47 Lymphocytes # (Manual) 0.2 X10*3/uL (0.6-4.8) L 06/11/20 05:47 Monocytes # (Manual) 0.1 X10*3/uL (0.0-1.2) 06/11/20 05:47 Metamyelocytes # 0.2 X10*3/uL 06/11/20 05:47 Nucleated RBCs 1 /100WBC (0-0) H 06/08/20 22:41 Toxic Granulation PRESENT 06/09/20 11:20 Toxic Vacuolation PRESENT 06/09/20 11:20 Platelet Estimate SLIGHTLY DECREASED (NORMAL) 06/11/20 05:47 Plt Morphology Comment NORMAL 06/11/20 05:47 RBC Morphology NOTED 06/11/20 05:47 Polychromasia 1+ 06/10/20 06:50 Ovalocytes 1+ 06/11/20 05:47 Jeremy Cells 2+ 06/11/20 05:47 Acanthocytes (Spur) 1+ 06/11/20 05:47 PT 16.0 SEC (10.8-13.0) H 06/09/20 05:45 INR 1.3 (0.9-1.1) H 06/09/20 05:45 APTT 28.0 SEC (24.1-38.0) 06/08/20 22:41 PTT (Heparin Protocol) 80.1 SEC (53-77.9) H D 06/11/20 02:05 Sodium 132 mmol/L (135-145) L 06/11/20 05:47 Potassium 4.6 mmol/l (3.3-5.1) 06/11/20 05:47 Chloride 104 mmol/L (96-108) 06/11/20 05:47 Carbon Dioxide 17 mmol/L (22-29) L 06/11/20 05:47 Anion Gap 16 (12-20) 06/11/20 05:47 BUN 25 mg/dL (9-16) H 06/11/20 05:47 Creatinine 0.81 mg/dL (0.5-1.4) 06/11/20 05:47 Estim Creat Clear Calc 69.2 06/11/20 05:47 Estimated GFR > 60 06/11/20 05:47 Random Glucose 82 mg/dL (60-115) 06/11/20 05:47 Lactic Acid 2.1 mmol/L (0.5-2.0) H* 06/08/20 22:41 Lactic Acid Fup @ 2Hr 1.5 mmol/L (0.5-2.0) 06/09/20 01:23 Calcium 6.8 mg/dL (8.4-10.2) L 06/11/20 05:47 Total Bilirubin 0.4 mg/dL (0.0-1.0) 06/09/20 00:16 Direct Bilirubin 0.3 mg/dL (0.0-0.5) 06/09/20 00:16 AST 27 U/L (5-31) 06/09/20 00:16 ALT 27 U/L (0-31) 06/09/20 00:16 Alkaline Phosphatase 76 U/L (39-117) D 06/09/20 00:16 Troponin I High Sens 26.1 ng/L (<3.5-17.0) H 06/09/20 11:20 B-Natriuretic Peptide 64 pg/mL (<100) 06/09/20 11:20 Total Protein 4.1 g/dL (6.5-8.0) L D 06/09/20 00:16 Albumin 2.1 g/dL (3.5-5.0) L D 06/09/20 00:16 Lipase 10 U/L (8-78) 06/09/20 00:16 TSH 1.07 uIU/mL (0.32-4.0) 06/09/20 04:50 Stool Occult Blood POS (NEG) 06/08/20 23:02 Coronavirus (PCR) POSITIVE (Negative) A 06/08/20 22:40 Influenza Type A (PCR) NEGATIVE (Negative) 06/08/20 22:40 Influenza Type B (PCR) NEGATIVE (Negative) 06/08/20 22:40 RSV RNA Qual (PCR) NEGATIVE (Negative) 06/08/20 22:40 Blood Type O Positive 06/08/20 22:50 Antibody Screen NEGATIVE 06/08/20 22:50 Progress Note: A/P (1) Pulmonary embolism Start date: 06/11/20 (She is in the ICU. Current treatment is optimal. Will Follow. ) Status: Acute (2) COVID-19 Start date: 06/10/20 Status: Acute (3) Acute saddle pulmonary embolism Status: Acute (4) Colitis with rectal bleeding Status: Acute (5) Hypoxia Status: Acute (6) Fracture of ramus of right pubis Status: Acute (7) Closed sacral fracture Status: Acute (8) Acute respiratory failure with hypoxia Status: Acute - Time Spent With Patient Total time spent is greater than 50% in coordination of care (as documented) at patient's floor/unit and/or counseling patient: 15 - 24 minutes
[2020-06-11] MEDS: Furosemide 500 MG in Container,Empty 0 ML IVCONT (10:40)
[2020-06-11] MEDS: Albumin Human 25 % 100 ML IV ×3 (10:41→22:02)
[2020-06-11 10:45] LABS: PTT Heparin Drip 41.5 SEC (53-77.9)
[2020-06-11] MEDS: Heparin Sodium,Porcine/1/2NS 25,000 UNIT/250 ML IV.SOLN 5.65 UNIT IVCONT (12:32)
[2020-06-11] MEDS: levoFLOXacin/D5W 500 MG/100 ML PIGGYBACK 100 MG IV (12:33)
[2020-06-11] MEDS: Heparin Sodium,Porcine 5,000 UNIT/ML VIAL 3820 UNIT IVPUSH (12:34)
--- NOTE | 2020-06-11 12:35 | MHC.CM.PN ---
Transfered to ICU from [facility] this morning.
--- NOTE | 2020-06-11 14:31 | PM.CCPN ---
Subjective Subjective Date of Service: 06/11/20 Interval History: 80-year-old lady with underlying metastatic breast cancer on palliative radiotherapy for spine metastasis admitted on 06/09/2020 with dyspnea secondary to newly diagnosed subtle embolism and COVID-19. Initial troponin only mildly elevated and coming down, BNP normal, hemodynamically stable. Patient has been started on heparin drip. She also was noted to have colitis has been started Levaquin and metronidazole hospital course has been complicated by progressive hypoxic respiratory failure requiring initiation of noninvasive positive pressure ventilation support and transfer to intensive care unit. Physical Exam Vital Signs: Vital Signs: Last Vital Signs Temp 100.0 F 06/11/20 13:00 Pulse 136 H 06/11/20 13:00 Resp 40 H 06/11/20 13:00 BP 121/55 L 06/11/20 12:00 Pulse Ox 91 L 06/11/20 13:00 Body Mass Index 34.2 Const: General: no acute distress, alert and awake Nutritional Appearance: obese Eyes: Sclerae: sclerae normal EOM: EOMs intact bilaterally Neck: Neck: Yes no lymphadenopathy, Yes trachea midline and Yes supple Resp: Effort & Inspection: normal respiratory effort Auscultation: crackles ( Diffuse bilateral) Cardio: Rate: tachycardic Rhythm: regular rhythm Heart sounds: no gallops, no murmurs and no rubs GI: Palpation (GI): Soft to palpation and Other GI palpation findings present ( Nontender) Auscultation: normal bowel sounds Extrem: General: No clubbing, No cyanosis and Yes edema ( 2+ bilateral) Objective Data Labs CBC & Chem 7: 06/11/20 05:47 06/11/20 05:47 Labs: Laboratory Results - last 24 hr 06/08/20 06/10/20 06/10/20 22:41 16:46 23:48 WBC RBC Hgb Hct MCV MCH MCHC RDW Plt Count MPV Immature Gran % (Auto) Neut % (Auto) Lymph % (Auto) [place] % (Auto) Eos % (Auto) Baso % (Auto) Lymph # (Auto) [place] # (Auto) Eos # (Auto) Baso # (Auto) Abs Immat Gran (auto) Absolute Neuts (auto) Absolute Nucleated RBC Nucleated RBC % (auto) Neutrophils % (Manual) Band Neutrophils % Lymphocytes % (Manual) Monocytes % (Manual) Metamyelocytes % Abs Neuts (Manual) Lymphocytes # (Manual) Monocytes # (Manual) Metamyelocytes # Platelet Estimate Plt Morphology Comment RBC Morphology Ovalocytes Jeremy Cells Acanthocytes (Spur) Smear Path Review SEE NOTE PTT (Heparin Protocol) 49.3 L D 152.7 H* D Sodium Potassium Chloride Carbon Dioxide Anion Gap BUN Creatinine Estim Creat Clear Calc Estimated GFR Random Glucose Calcium 06/11/20 06/11/20 06/11/20 02:05 05:47 05:47 WBC 11.3 H RBC 4.37 Hgb 12.3 Hct 37.5 MCV 85.8 MCH 28.1 MCHC 32.8 RDW 17.2 H Plt Count 136 L MPV 10.7 Immature Gran % (Auto) Cancelled Neut % (Auto) Cancelled Lymph % (Auto) Cancelled [place] % (Auto) Cancelled Eos % (Auto) Cancelled Baso % (Auto) Cancelled Lymph # (Auto) Cancelled [place] # (Auto) Cancelled Eos # (Auto) Cancelled Baso # (Auto) Cancelled Abs Immat Gran (auto) Cancelled Absolute Neuts (auto) Cancelled Absolute Nucleated RBC 0.000 Nucleated RBC % (auto) 0.0 Neutrophils % (Manual) 84 H Band Neutrophils % 11 H Lymphocytes % (Manual) 2 L Monocytes % (Manual) 1 L Metamyelocytes % 2 Abs Neuts (Manual) 10.7 H Lymphocytes # (Manual) 0.2 L Monocytes # (Manual) 0.1 Metamyelocytes # 0.2 Platelet Estimate SLIGHTLY DECREASED Plt Morphology Comment NORMAL RBC Morphology NOTED Ovalocytes 1+ [place] Cells 2+ Acanthocytes (Spur) 1+ Smear Path Review PTT (Heparin Protocol) 80.1 H D Sodium 132 L Potassium 4.6 Chloride 104 Carbon Dioxide 17 L Anion Gap 16 BUN 25 H Creatinine 0.81 Estim Creat Clear Calc 69.2 Estimated GFR > 60 Random Glucose 82 Calcium 6.8 L 06/11/20 10:24 WBC RBC Hgb Hct MCV MCH MCHC RDW Plt Count MPV Immature Gran % (Auto) Neut % (Auto) Lymph % (Auto) [place] % (Auto) Eos % (Auto) Baso % (Auto) Lymph # (Auto) [place] # (Auto) Eos # (Auto) Baso # (Auto) Abs Immat Gran (auto) Absolute Neuts (auto) Absolute Nucleated RBC Nucleated RBC % (auto) Neutrophils % (Manual) Band Neutrophils % Lymphocytes % (Manual) Monocytes % (Manual) Metamyelocytes % Abs Neuts (Manual) Lymphocytes # (Manual) Monocytes # (Manual) Metamyelocytes # Platelet Estimate Plt Morphology Comment RBC Morphology Ovalocytes [place] Cells Acanthocytes (Spur) Smear Path Review PTT (Heparin Protocol) 41.5 L D Sodium Potassium Chloride Carbon Dioxide Anion Gap BUN Creatinine Estim Creat Clear Calc Estimated GFR Random Glucose Calcium Microbiology Microbiology Results: Microbiology 06/08/20 22:50 Blood - Venous Blood Culture - Preliminary No growth after 48 hours. 06/08/20 22:40 Blood - Venous Blood Culture - Preliminary No growth after 48 hours. Progress Note: A&P Assessment and plan (1) Acute respiratory failure with hypoxia: Status: Acute Assessment and Plan: Assessment: 80-year-old lady with underlying metastatic breast cancer on per 80 radiation for spine metastasis admitted with dyspnea secondary to saddle pulmonary embolism and COVID-19 ARDS with progressive hypoxia now requiring noninvasive positive pressure ventilatory support. Plan: Neuro: No acute issues. Cardiac: No acute issues. Pulmonary: Acute hypoxic respiratory failure secondary to combination of saddle pulmonary embolism and COVID-19 related ARDS. Now noninvasive positive pressure ventilatory support. Continue to titrate of as tolerated. Renal: No acute issues. Endo: No acute issues. GI: No acute issues. ID: Underlying colitis, continue Levaquin and metronidazole. Underlying COVID-19 viral sepsis. Heme/Onc: Saddle pulmonary embolism in patient with metastatic breast cancer. Oncology service care appreciated. Continue on heparin drip. Lower extremity Dopplers positive for left small DVT. Would not proceed with IVC filter at this time. Underlying metastatic breast cancer on anastrazole Psych: No acute issues. Miscellaneous: No acute issues. Prophylaxis: Heparin drip, ppi Diet: nothing by mouth Critical care time spent: 90 minutes (2) COVID-19: Status: Acute (3) Acute saddle pulmonary embolism: Status: Acute (4) Colitis with rectal bleeding: Status: Acute (5) Acute respiratory distress syndrome (ARDS) due to COVID-19 virus: Status: Acute Time Spent With Patient Total time spent with greater than 50% in coordination of care (as documented) at patient's floor/unit and/or counseling patient:: 0 Critical Care Time Critical Care Time (minutes): 90
--- NOTE | 2020-06-11 15:01 | MHC.CM.PN ---
Pt transferred to ICU for NIPPV d/t resp distress r/t PNA / COVID+. Original d/c plan was home with services vs SNF. CM to follow for finalization of d/c needs.
--- NOTE | 2020-06-11 18:05 | PM.CCN ---
Critical Care Event Note Summary Code activated: No Narrative: Patient requiring FiO2 100% on CPAP of 12. Care plan discussion held with patient's family and overall poor prognosis, particularly if patient requires ventilatory support, reviewed. Decision has been reached to continue with noninvasive positive pressure ventilation support only and not to proceed to intubation. If patient would fail noninvasive positive pressure ventilation support, decision has been reached to change patient's goals of care to comfort at that time. Code status changed to do not intubate. Critical Care Time (minutes): 60
[2020-06-11] MEDS: Enoxaparin Sodium 100 MG/ML SYRINGE SUBCUT (19:38)
--- NOTE | 2020-06-11 20:18 | P.EN_ITS ---
Event Note Date of Service: 06/11/20 Event Note: this a.m. this patient was hypoxic satting 85-89% on 100% high f low. Patient has tachypneic and tachycardic, chest x-ray showed worsening bilateral opacities. ICU attending was contacted to admit patient to the ICU and ICU PA evaluated patient. a decision was made to give patient Lasix and Keep patient on IMC.
[2020-06-12] VITALS (33 sets, daily range): BP systolic 93–133; BP diastolic 47–85; PULSE 93–126; RESP 14–40; TEMP 35.8–37.7; O2SAT 84–99; BMI 31.0
[2020-06-12] MEDS: Albumin Human 25 % 100 ML IV (04:47)
[2020-06-12] MEDS: 0.9 % Sodium Chloride Flush 3 ML SYRINGE IVFLUSH ×3 (04:47→16:38)
[2020-06-12] MEDS: Pantoprazole Sodium 40 MG/10 ML VIAL IVPUSH (04:47)
[2020-06-12] MEDS: metroNIDAZOLE/NS 500 MG/100 ML PIGGYBACK 100 MG IV ×3 (04:48→21:54)
--- NOTE | 2020-06-12 06:15 | PC.NURSE ---
PT REMOVED VERY BRIEFLY FROM CPAP TO PERFORM ORAL CARE. PT TOLERATED BEING OFF CPAP VERY POORLY. SAO2 QUICKLY DROPPED INTO THE 70S. PTS SENSORIUM INTACT. AFFECT FLAT WITH EPISODES OF ANXIETY. GENERALIZED EDEMA IS WELL NOTED. RETURNED TO CPAP OF 12 FIO2 INCREASED TO 80%. WITH RETURN TO BIPAP SAO2 HAVE RISEN INTO THE LOW 90S. BREATH SOUNDS DIMISNISHED WITH FINE BIBASILAR CRACKLES NOTED. ECG DISPLAYS ST. APICAL HR 105-110 BPM. ALTHOUGH WITH MINIMAL ACTIVITY HEART RATE WILL INCREASE IN THE 120S BPM. U/O 200-300 WIH LASIX DRIP AT 5MG/HR. PT STATES THE SWELLING IN MY HANDS LOOKS SO MUCH BETTER.
[2020-06-12 06:24] LABS: Hematocrit 29.7 % (37-47); Hemoglobin 10.1 g/dl (12.0-16.0); Mean Corpuscular Hemoglobin 28.3 pg (27.0-33.0); Mean Corpuscular Volume 83.2 fL (80-98); Platelet Count 91 X10*3/uL (160-400); Red Blood Count 3.57 X10*6/uL (4.20-5.50); Red Cell Distribution Width 16.7 % (11.0-16.0); White Blood Count 11.1 X10*3/uL (4.8-10.8)
[2020-06-12 06:56] LABS: Base Excess VBG -3.2 mmol/L; HCO3 VBG 21 mmol/L; Oxygen Saturation VBG 65.3 %; PCO2 VBG 33 mmhg; PO2 VBG 33 mmhg; pH VBG 7.41 (7.32-7.43)
[2020-06-12 07:05] LABS: Alanine Aminotransferase 18 U/L (0-31); Albumin Level 3.7 g/dL (3.5-5.0); Alkaline Phosphatase 71 U/L (39-117); Aspartate Amino Transferase 35 U/L (5-31); Bilirubin Total 0.7 mg/dL (0.0-1.0); Blood Urea Nitrogen 32 mg/dL (9-16); Calcium 7.4 mg/dL (8.4-10.2); Creatinine Clr Calc Pharmacy 44.8; Estimated Glomerular Filt Rate 44; Glucose Random 95 mg/dL (60-115); Magnesium 1.7 mg/dL (1.6-2.6); Total Protein 5.4 g/dL (6.5-8.0)
[2020-06-12 07:22] LABS: Anion Gap 16 (12-20); Carbon Dioxide 22 mmol/L (22-29); Chloride 103 mmol/L (96-108); Potassium 3.2 mmol/l (3.3-5.1); Sodium 138 mmol/L (135-145)
[2020-06-12 07:30] LABS: Band Neutrophils Percent 8 % (3-5); Lymphocytes Absolute Manual 0.2 X10*3/uL (0.6-4.8); Lymphocytes Percent Manual 2 % (20-40); Metamyelocytes Absolute 0.3 X10*3/uL; Metamyelocytes Percent 3 %; Monocytes Absolute Manual 0.6 X10*3/uL (0.0-1.2); Monocytes Percent Manual 5 % (2-11); Neutrophils Percent Manual 82 % (45-73)
[2020-06-12 07:31] LABS: Platelet Estimate DECREASED (NORMAL); Platelet Morphology Comment NORMAL
[2020-06-12 07:32] LABS: Ovalocytes 1+; RBC Morphology NOTED
[2020-06-12] MEDS: Enoxaparin Sodium 100 MG/ML SYRINGE SUBCUT ×2 (09:42→21:19)
[2020-06-12] MEDS: Potassium Chloride/H20 10 MEQ/100 ML PIGGYBACK 100 MEQ IV ×4 (09:42→13:50)
[2020-06-12] MEDS: dexAMETHasone 4 MG TABLET PO (09:43)
[2020-06-12] MEDS: Docusate Sodium 100 MG CAPSULE PO (09:43)
[2020-06-12] MEDS: polyethylene glycoL 3350 17 GM POWD.PACK PO (09:43)
[2020-06-12] MEDS: Anastrozole 1 MG TABLET PO (10:14)
[2020-06-12] MEDS: levoFLOXacin/D5W 500 MG/100 ML PIGGYBACK 100 MG IV (12:37)
--- NOTE | 2020-06-12 12:38 | P.PNHO_ITS ---
Medical Summary - Medical Summary Date of Service: 06/12/20 Chief complaint: PE, Covid19 pneumonia, metastatic breast cancer Medical Summary: CT abdomen/pelvis performed 04/22/2020- 1. Multiple liver masses worrisome for metastatic disease. 2. Left adrenal mass which could represent metastatic disease. 3. Multiple bone lesions highly suspicious for metastatic disease. CT chest performed 04/23/2020 revealed- 1. Scattered sclerotic metastases thoracic spine. Pathologic fracture, possibly chronic, upper sternal body. 2. Scattered bilateral nodularity, largest medial left upper lobe abutting the aortic arch measuring 1.7 x 1.2 x 1.9 cm. 3. No hilar or mediastinal adenopathy or ascites. Liver, biopsy: Moderate to poorly differentiated carcinoma consistent with metas tasis from patient's known primary breast carcinoma. Estrogen Receptor: Positive (strong intensity; 100% of tumor cells) Progesterone Receptor: Positive (variable weak/moderate intensity; 15% of tumor cells) HER2: Positive (3+) Started Arimidex 1 mg p.o. daily in April 2020. Interval History Interval history: Her platelet count has dropped to 91,00 and heparin induced thrombocytopenia should be considered if it continues to fall. The sodium is better. Her chest xray showed worsening opacities. She is in ICU and on bipap. A decision was reached not to intubate. Review of Systems - Neurologic Reports system reviewed and no additional complaints, except as documented, Reports weakness, Denies focal weakness PMFSH Medical History: Medical History (Last Reviewed 06/09/20 @ 18:03 by Roly Rosa MD) Breast cancer Hx of radiation therapy Hypertension Hypothyroidism Liver cancer Metastatic breast cancer Metastatic disease Mitral valve vegetation Neuropathy Sciatica Family History: Family History (Last Reviewed 06/09/20 @ 18:03 by Roly Rosa MD) Mother Colon cancer Surgical History: Surgical History (Last Reviewed 06/09/20 @ 18:03 by Roly Rosa MD) H/O knee surgery H/O left mastectomy History of bilateral mastectomy History of hip surgery History of left knee replacement Onset Date: ~09/2011 History of lumpectomy of left breast Onset Date: ~02/2012 Smoking status: Unknown if ever smoked Home Medications and Allergies Current Medications: Current Medications Generic Name Dose Route Start Last Admin Trade Name Freq PRN Reason Stop Dose Admin Acetaminophen 650 mg 11/25/20 04:10 Acetaminophen 325 Mg Tablet PO Q6H PRN Pain, Mild (Pain Scale 1-3) Anastrozole 1 mg 06/09/20 09:00 06/12/20 10:14 Anastrozole 1 Mg Tablet PO 1 mg DAILY TRISHA Administration Dexamethasone 4 mg 06/09/20 09:00 06/12/20 09:43 Dexamethasone 4 Mg Tablet PO 4 mg BID TRISHA Administration Docusate Sodium 100 mg 06/09/20 09:00 06/12/20 09:43 Docusate Sodium 100 Mg Capsule PO 100 mg DAILY TRISHA Administration Enoxaparin Sodium 100 mg 06/11/20 20:00 06/12/20 09:42 Enoxaparin Sodium 100 Mg/Ml Syringe 1 mg/kg (100 mg) 100 mg SUBCUT Administration Q12H TRISHA Metronidazole 500 mg in 100 mls @ 100 mls/hr 06/09/20 05:30 06/12/20 06:06 Flagyl IV Infused Q8H TRISHA Infusion Levofloxacin 500 mg in 100 mls @ 100 mls/hr 06/10/20 12:00 06/12/20 12:37 Levaquin IV 100 mls/hr Q24H TRISHA Administration Lorazepam 0.5 mg 06/10/20 15:48 06/10/20 23:50 Lorazepam 2 Mg/Ml Vial IVPUSH 0.5 mg Q4H PRN Administration Anxiety Ondansetron HCl 4 mg 06/09/20 04:10 06/10/20 09:25 Ondansetron Hcl 4 Mg/2 Ml Vial IVPUSH 4 mg Q8H PRN Administration Nausea and Vomiting Oxycodone HCl 5 mg 06/09/20 04:10 06/10/20 11:47 Oxycodone Hcl Immed Release 5 Mg Tablet PO 5 mg Q6H PRN Administration Back Pain Polyethylene Glycol 17 gm 06/09/20 09:00 06/12/20 09:43 Polyethylene Glycol 3350 17 Gm Powd.Pack PO 17 gm BID TRISHA Administration Sodium Chloride 3 ml 06/09/20 08:00 06/12/20 09:42 0.9 % Sodium Chloride Flush 3 Ml Syringe IVFLUSH 3 ml QSHIFT TRISHA Administration Home Medications Medication Instructions Recorded Confirmed Type cyclobenzaprine 1 tab PO BEDTIME PRN 04/22/20 06/09/20 History Allergies Allergy/AdvReac Type Severity Reaction Status Date / Time codeine [CODEINE] Allergy Intermediate VOMITING Verified 06/08/20 22:21 Benadryl Allergy Unknown Unknown Uncoded 04/22/20 19:05 codeine Allergy Unknown vomiting Uncoded 10/10/18 00:00 Codeine Sulfate AdvReac Mild Vomiting Uncoded 04/22/20 19:07 Exam Vital signs: Vital Signs Temp 96.6 F L 06/10/20 08:00 Pulse 126 H 06/10/20 08:00 Resp 28 H 06/10/20 09:59 BP 114/79 06/10/20 08:00 Pulse Ox 88 L 06/10/20 08:00 Intake & Output 06/09/20 06/10/20 06/10/20 18:59 06:59 18:59 Intake Total 1458.338 / 2319.570 861.232 / 2319.570 Output Total 200 / 200 Balance 1458.338 / 2119.570 661.232 / 2119.570 Urine Output (Average ml/kg/hr) 0.17 Intake: Intake, Oral Amount 600 / 960 360 / 960 Intake, IV Amount 858.338 / 1359.570 501.232 / 1359.570 levoFLOXacin/D5W 750 mg In 150 150 / 150 ml @ 100 mls/hr IV Q24H TRISHA Rx# :[id number] metroNIDAZOLE/NS 500 mg In 100 200 / 400 200 / 400 ml @ 100 mls/hr IV Q8H TRISHA Rx#: [id number] 0.9 % Sodium Chloride 1,000 ml 566.667 / 566.667 @ 100 mls/hr IVCONT .Q10H TRISHA Rx#:[id number] Heparin Sodium,Porcine/1/2NS 25 91.671 / 242.903 151.232 / 242.903 ,000 unit In 250 ml @ Per Protocol IVCONT .Q0M TRISHA Rx#: [id number] Output: Output, Urine Amount 200 / 200 Other: Lunch % Eaten 25% Dinner % Eaten 50% Number of Incontinent Voids 2 Urine purewick Urine Color Yellow Weight 94.2 kg 95.5 kg Weight 95.5 kg Body Mass Index 33.0 - Constitutional Present: no acute distress, mild distress - Routine HEENT Exam Head: Present: atraumatic - Routine Neck Exam Present: full ROM - Routine Respiratory Exam Present: decreased breath sounds - Routine Cardiovascular Exam Cardiovascular: Present: tachycardia - Routine Abdominal Exam Present: diminished bowel sounds - Routine Exam Patient deferred: external exam - Routine Extremities Exam Present: full ROM - Routine Back/Spine/Pelvis Exam Back/Spine: Present: full ROM - Routine Skin Exam Present: intact - Detailed Neurological Exam: Coma Scale Eye Opening: Spontaneous (4) - Routine Psychiatric Exam Present: normal thought process Data - Labs CBC & Chem 7: 06/12/20 05:44 06/12/20 05:44 Labs: 06/08/20 22:01 ECG 12 lead EKG Stat EKG Documentation DIRECTED 06/08/20 22:04 XR chest 1V Stat 06/08/20 22:15 0.9 % Sodium Chloride [Ns] 1,000 ml IVCONT 999 mls/hr 06/08/20 22:40 SARS-CoV2/FLU/RSV Stat 06/08/20 22:41 Complete Blood Count Man Dif Stat Lactic Acid Stat Partial Thromboplastin Time Stat Prothrombin Time INR Stat Troponin-I High Sensitivity Stat 06/08/20 22:50 Type and Screen Stat 06/08/20 22:57 0.9 % Sodium Chloride [Ns] 2,826 ml IVCONT 2,826 mls/hr Acetaminophen [Tylenol] 650 mg PO ONCE ONE 06/08/20 22:59 Vital Signs Q30M 06/08/20 23:02 [id number] Stat 06/08/20 23:26 BMP [Basic Metabolic Panel] Stat Lipase Stat 06/08/20 23:27 Liver Panel Stat 06/08/20 23:31 levoFLOXacin/D5W [Levaquin] 750 mg in 150 ml IV ONCE 06/08/20 23:46 Albuterol Sulfate [Ventolin] 2 puff INHALE ONCE ONE 06/09/20 00:00 CT abdomen pelvis w con Stat CT angio chest PE protocol Stat levoFLOXacin/D5W [Levaquin] 0 mg in 0 ml IV As directed 06/09/20 01:23 ~Lactic Acid-LAB USE ONLY Stat 06/09/20 01:43 Code Status Routine Transfer Order Routine 06/09/20 02:12 iohexoL 350 MG/ML [Omnipaque 350 MG/ML] 85 ml IV ONCE ONE 06/09/20 02:32 Heparin Sodium,Porcine 5,000 unit IVPUSH ONCE ONE 06/09/20 02:34 Heparin Sodium,Porcine 3,768 unit IVPUSH BOLUS PRN Heparin Sodium,Porcine 7,536 unit IVPUSH BOLUS PRN 06/09/20 02:38 Heparin Sodium,Porcine 3,768 unit IVPUSH BOLUS ONE 06/09/20 02:45 Heparin Sodium,Porcine/1/2NS 25,000 unit in 250 ml IVCONT Per Protocol units/kg/hr 06/09/20 04:10 0.9 % Sodium Chloride [Ns] 1,000 ml IVCONT 100 mls/hr Cyclobenzaprine HCl [Flexeril] 10 mg PO BEDTIME PRN Docusate Sodium [Colace] 100 mg PO DAILY PRN 06/09/20 04:10 Ambulate QSHIFT WHILE AWAKE IV insert/maintain Q8HR Intake and Output Q8HR Vital Signs Q4HR 06/09/20 04:50 Hemoglobin and Hematocrit Q12H Thyroid Stimulating Hormone Routine Troponin-I High Sensitivity Stat 06/09/20 05:45 Prothrombin Time INR DAILY 06/09/20 06:30 Pantoprazole Sodium [Protonix] 40 mg IVPUSH BID@0630,1630 06/09/20 09:27 PTT Heparin Drip Stat 06/09/20 Breakfast NPO Diet 06/09/20 11:00 CA echo transthoracic complete Routine 06/09/20 11:20 B Type Natriuretic Peptide Routine Complete Blood Count Man Dif Routine PTT Heparin Drip Stat Troponin-I High Sensitivity Routine 06/09/20 13:14 Hemoglobin and Hematocrit Q12H PTT Heparin Drip Stat 06/09/20 20:50 PTT Heparin Drip Stat 06/09/20 23:00 levoFLOXacin/D5W [Levaquin] 750 mg in 150 ml IV Q24H 06/10/20 03:15 PTT Heparin Drip Stat 06/10/20 06:50 Basic Metabolic Panel Routine Complete Blood Count Man Dif Routine 06/10/20 11:28 PTT Heparin Drip Stat LORazepam [Ativan] 0.5 mg IVPUSH Q6H PRN 06/10/20 11:56 Morphine Sulfate 2 mg IVPUSH Q3H PRN 06/10/20 15:47 0.9 % Sodium Chloride [Ns] 1,000 ml IVCONT 100 mls/hr 06/10/20 16:46 PTT Heparin Drip Stat 06/10/20 17:28 Heparin Sodium,Porcine 3,820 unit IVPUSH BOLUS PRN Heparin Sodium,Porcine 7,640 unit IVPUSH BOLUS PRN 06/10/20 23:48 PTT Heparin Drip Stat 06/11/20 XR chest 1V Stat US venous duplex LE BI Routine 06/11/20 02:05 PTT Heparin Drip Stat 06/11/20 04:49 Furosemide [Lasix] 40 mg IVPUSH STAT STA 06/11/20 04:55 Furosemide [Lasix] 40 mg .ROUTE .[employer] ONE 06/11/20 05:47 Basic Metabolic Panel Routine Complete Blood Count Man Dif Routine 06/11/20 09:03 Transfer Order Routine 06/11/20 10:00 Albumin Human 25 % [Kedbumin 25 %] 100 ml IV Q6H Container,Empty 0 ml Furosemide [Lasix] 500 mg IVCONT 5 mg/hr 06/11/20 10:24 PTT Heparin Drip Stat 06/11/20 12:20 Heparin Sodium,Porcine 5,000 unit .ROUTE .[employer] ONE 06/12/20 05:44 Complete Blood Count Man Dif Routine Comprehensive Met. Panel DAILY@0600 Magnesium DAILY Phosphorus DAILY Venous Blood Gas DAILY 06/12/20 07:30 Potassium Chloride/H20 10 meq in 100 ml IV Q1H Laboratory Last Values WBC 11.1 X10*3/uL (4.8-10.8) H 06/12/20 05:44 RBC 3.57 X10*6/uL (4.20-5.50) L 06/12/20 05:44 Hgb 10.1 g/dl (12.0-16.0) L 06/12/20 05:44 Hct 29.7 % (37-47) L D 06/12/20 05:44 MCV 83.2 fL (80-98) 06/12/20 05:44 MCH 28.3 pg (27.0-33.0) 06/12/20 05:44 MCHC 34.0 g/dl (31.0-35.0) 06/12/20 05:44 RDW 16.7 % (11.0-16.0) H 06/12/20 05:44 Plt Count 91 X10*3/uL (160-400) L D 06/12/20 05:44 MPV 10.0 fL (9.4-12.3) 06/12/20 05:44 Immature Gran % (Auto) Cancelled 06/12/20 05:44 Neut % (Auto) Cancelled 06/12/20 05:44 Lymph % (Auto) Cancelled 06/12/20 05:44 [place] % (Auto) Cancelled 06/12/20 05:44 Eos % (Auto) Cancelled 06/12/20 05:44 Baso % (Auto) Cancelled 06/12/20 05:44 Lymph # (Auto) Cancelled 06/12/20 05:44 [place] # (Auto) Cancelled 06/12/20 05:44 Eos # (Auto) Cancelled 06/12/20 05:44 Baso # (Auto) Cancelled 06/12/20 05:44 Abs Immat Gran (auto) Cancelled 06/12/20 05:44 Absolute Neuts (auto) Cancelled 06/12/20 05:44 Absolute Nucleated RBC 0.000 X10*3/uL (0.0-0.012) 06/12/20 05:44 Nucleated RBC % (auto) 0.0 /100WBC (0.0-0.2) 06/12/20 05:44 Neutrophils % (Manual) 82 % (45-73) H 06/12/20 05:44 Band Neutrophils % 8 % (3-5) H 06/12/20 05:44 Lymphocytes % (Manual) 2 % (20-40) L 06/12/20 05:44 Monocytes % (Manual) 5 % (2-11) 06/12/20 05:44 Metamyelocytes % 3 % 06/12/20 05:44 Abs Neuts (Manual) 10.0 X10*3/uL (2.2-7.9) H 06/12/20 05:44 Lymphocytes # (Manual) 0.2 X10*3/uL (0.6-4.8) L 06/12/20 05:44 Monocytes # (Manual) 0.6 X10*3/uL (0.0-1.2) 06/12/20 05:44 Metamyelocytes # 0.3 X10*3/uL 06/12/20 05:44 Nucleated RBCs 1 /100WBC (0-0) H 06/08/20 22:41 Toxic Granulation PRESENT 06/09/20 11:20 Toxic Vacuolation PRESENT 06/09/20 11:20 Platelet Estimate DECREASED (NORMAL) 06/12/20 05:44 Plt Morphology Comment NORMAL 06/12/20 05:44 RBC Morphology NOTED 06/12/20 05:44 Polychromasia 1+ 06/10/20 06:50 Ovalocytes 1+ 06/12/20 05:44 Jeremy Cells 2+ 06/11/20 05:47 Acanthocytes (Spur) 1+ 06/11/20 05:47 Smear Path Review SEE NOTE 06/08/20 22:41 PT 16.0 SEC (10.8-13.0) H 06/09/20 05:45 INR 1.3 (0.9-1.1) H 06/09/20 05:45 APTT 28.0 SEC (24.1-38.0) 06/08/20 22:41 PTT (Heparin Protocol) 41.5 SEC (53-77.9) L D 06/11/20 10:24 VBG pH 7.41 (7.32-7.43) 06/12/20 05:44 VBG pCO2 33 mmhg 06/12/20 05:44 VBG pO2 33 mmhg 06/12/20 05:44 VBG HCO3 21 mmol/L 06/12/20 05:44 VBG O2 Saturation 65.3 % 06/12/20 05:44 VBG Base Excess -3.2 mmol/L 06/12/20 05:44 Sodium 138 mmol/L (135-145) 06/12/20 05:44 Potassium 3.2 mmol/l (3.3-5.1) L D 06/12/20 05:44 Chloride 103 mmol/L (96-108) 06/12/20 05:44 Carbon Dioxide 22 mmol/L (22-29) 06/12/20 05:44 Anion Gap 16 (12-20) 06/12/20 05:44 BUN 32 mg/dL (9-16) H 06/12/20 05:44 Creatinine 1.19 mg/dL (0.5-1.4) 06/12/20 05:44 Estim Creat Clear Calc 44.8 06/12/20 05:44 Estimated GFR 44 06/12/20 05:44 Random Glucose 95 mg/dL (60-115) 06/12/20 05:44 Lactic Acid 2.1 mmol/L (0.5-2.0) H* 06/08/20 22:41 Lactic Acid Fup @ 2Hr 1.5 mmol/L (0.5-2.0) 06/09/20 01:23 Calcium 7.4 mg/dL (8.4-10.2) L D 06/12/20 05:44 Phosphorus 3.0 mg/dL (2.7-4.5) 06/12/20 05:44 Magnesium 1.7 mg/dL (1.6-2.6) 06/12/20 05:44 Total Bilirubin 0.7 mg/dL (0.0-1.0) 06/12/20 05:44 Direct Bilirubin 0.3 mg/dL (0.0-0.5) 06/09/20 00:16 AST 35 U/L (5-31) H 06/12/20 05:44 ALT 18 U/L (0-31) 06/12/20 05:44 Alkaline Phosphatase 71 U/L (39-117) 06/12/20 05:44 Troponin I High Sens 26.1 ng/L (<3.5-17.0) H 06/09/20 11:20 B-Natriuretic Peptide 64 pg/mL (<100) 06/09/20 11:20 Total Protein 5.4 g/dL (6.5-8.0) L D 06/12/20 05:44 Albumin 3.7 g/dL (3.5-5.0) D 06/12/20 05:44 Lipase 10 U/L (8-78) 06/09/20 00:16 TSH 1.07 uIU/mL (0.32-4.0) 06/09/20 04:50 Stool Occult Blood POS (NEG) 06/08/20 23:02 Coronavirus (PCR) POSITIVE (Negative) A 06/08/20 22:40 Influenza Type A (PCR) NEGATIVE (Negative) 06/08/20 22:40 Influenza Type B (PCR) NEGATIVE (Negative) 06/08/20 22:40 RSV RNA Qual (PCR) NEGATIVE (Negative) 06/08/20 22:40 Blood Type O Positive 06/08/20 22:50 Antibody Screen NEGATIVE 06/08/20 22:50 Progress Note: A/P (1) Acute respiratory failure with hypoxia Status: Acute (2) COVID-19 Start date: 06/10/20 Status: Acute (3) Acute saddle pulmonary embolism Start date: 06/12/20 (Please check th platelets daily.) Status: Acute (4) Colitis with rectal bleeding Status: Acute (5) Acute respiratory distress syndrome (ARDS) due to COVID-19 virus Status: Acute - Time Spent With Patient Total time spent is greater than 50% in coordination of care (as documented) at patient's floor/unit and/or counseling patient: 15 - 24 minutes
--- NOTE | 2020-06-12 12:50 | P.PNCC_ITS ---
Subjective Subjective Date of Service: 06/12/20 Interval History: 80-year-old lady with underlying metastatic breast cancer on palliative radiotherapy for spine metastasis admitted on 06/09/2020 with dyspnea secondary to newly diagnosed subtle embolism and COVID-19. Initial troponin only mildly elevated and coming down, BNP normal, hemodynamically stable. Patient has been started on heparin drip. She also was noted to have colitis has been started Levaquin and metronidazole hospital course has been complicated by progressive hypoxic respiratory failure requiring initiation of noninvasive positive pressure ventilation support and transfer to intensive care unit. no events overnight. FiO2 slightly improved. Tolerates high-flow nasal cannula intermittently with CPAP. Physical Exam Vital Signs: Vital Signs: Last Vital Signs Temp 99.9 F 06/12/20 12:00 Pulse 106 H 06/12/20 12:00 Resp 18 06/12/20 12:00 BP 96/66 06/12/20 12:00 Pulse Ox 96 06/12/20 12:00 Body Mass Index 31.0 Const: General: no acute distress and lethargic ( [place]) Orien tation/consciousness: lethargic ( [place]) Eyes: Sclerae: sclerae normal Neck: Neck: Yes no lymphadenopathy, Yes trachea midline and Yes supple Resp: Auscultation: crackles ( diffuse bilateral) Cardio: Rate: tachycardic Rhythm: regular rhythm Heart sounds: no gallops, no murmurs and no rubs GI: Palpation (GI): Soft to palpation and Other GI palpation findings present ( Nontender) Auscultation: normal bowel sounds Extrem: General: No clubbing, No cyanosis and Yes edema ( 1+ bilateral) Objective Data Labs CBC & Chem 7: 06/12/20 05:44 06/12/20 05:44 Labs: Laboratory Results - last 24 hr 06/12/20 06/12/20 06/12/20 05:44 05:44 05:44 WBC 11.1 H RBC 3.57 L Hgb 10.1 L Hct 29.7 L D MCV 83.2 MCH 28.3 MCHC 34.0 RDW 16.7 H Plt Count 91 L D MPV 10.0 Immature Gran % (Auto) Cancelled Neut % (Auto) Cancelled Lymph % (Auto) Cancelled [place] % (Auto) Cancelled Eos % (Auto) Cancelled Baso % (Auto) Cancelled Lymph # (Auto) Cancelled [place] # (Auto) Cancelled Eos # (Auto) Cancelled Baso # (Auto) Cancelled Abs Immat Gran (auto) Cancelled Absolute Neuts (auto) Cancelled Absolute Nucleated RBC 0.000 Nucleated RBC % (auto) 0.0 Neutrophils % (Manual) 82 H Band Neutrophils % 8 H Lymphocytes % (Manual) 2 L Monocytes % (Manual) 5 Metamyelocytes % 3 Abs Neuts (Manual) 10.0 H Lymphocytes # (Manual) 0.2 L Monocytes # (Manual) 0.6 Metamyelocytes # 0.3 Platelet Estimate DECREASED Plt Morphology Comment NORMAL RBC Morphology NOTED Ovalocytes 1+ VBG pH 7.41 VBG pCO2 33 VBG pO2 33 VBG HCO3 21 VBG O2 Saturation 65.3 VBG Base Excess -3.2 Sodium 138 Potassium 3.2 L D Chloride 103 Carbon Dioxide 22 Anion Gap 16 BUN 32 H Creatinine 1.19 Estim Creat Clear Calc 44.8 Estimated GFR 44 Random Glucose 95 Calcium 7.4 L D Phosphorus 3.0 Magnesium 1.7 Total Bilirubin 0.7 AST 35 H ALT 18 Alkaline Phosphatase 71 Total Protein 5.4 L D Albumin 3.7 D Microbiology Microbiology Results: Microbiology 06/08/20 22:50 Blood - Venous Blood Culture - Preliminary No growth after 48 hours. 06/08/20 22:40 Blood - Venous Blood Culture - Preliminary No growth after 48 hours. Progress Note: A&P Assessment and plan (1) Acute respiratory distress syndrome (ARDS) due to COVID-19 virus: Status: Acute Assessment and Plan: Assessment: 80-year-old lady with underlying metastatic breast cancer on per 80 radiation for spine metastasis admitted with dyspnea secondary to saddle pulmonary embolism and COVID-19 ARDS with progressive hypoxia now requiring noninvasive positive pressure ventilatory support. Plan: Neuro: No acute issues. Cardiac: No acute issues. Pulmonary: Acute hypoxic respiratory failure secondary to combination of saddle pulmonary embolism and COVID-19 related ARDS. Now noninvasive positive pressure ventilatory support. Continue to titrate off as tolerated. Renal: No acute issues. After family discussion decision has been reached that, if patient fails noninvasive positive pressure ventilation, not to intubate, but to change goals of care to comfort at that time. Endo: No acute issues. GI: No acute issues. ID: Underlying colitis, continue Levaquin and metronidazole. Underlying COVID-19 viral sepsis. Heme/Onc: Saddle pulmonary embolism in patient with metastatic breast cancer. Oncology service care appreciated. Continue on heparin drip. Lower extremity Dopplers positive for left small DVT. Would not proceed with IVC filter at this time. Underlying metastatic breast cancer on anastrazole Psych: No acute issues. Miscellaneous: No acute issues. Prophylaxis: Lovenox, ppi Diet: nothing by mouth Critical care time spent: 60 minutes (2) Acute respiratory failure with hypoxia: Status: Acute (3) Acute saddle pulmonary embolism: Status: Acute (4) Colitis with rectal bleeding: Status: Acute Time Spent With Patient Total time spent with greater than 50% in coordination of care (as documented) at patient's floor/unit and/or counseling patient:: 0 Critical Care Time Critical Care Time (minutes): 60
--- NOTE | 2020-06-12 13:10 | PC.NURSE ---
respiratory to room, pt had been trialed on high flow with non rebreather and tolerated well enough to eat . she then tired, was falling asleep and had sats in upper 70's so pt was put back on cpap. Atwith respiratory, attempted to wean pt back to high flow to eat a meal, pt could not keep saturations about mid 80's.pt placed back on cpap
--- NOTE | 2020-06-12 16:34 | PC.NURSE ---
pt has been asking to eat and drink. Respiratory to bedside to trail pt on high flow with non rebreather. At rest oxygen sats were 89. Pt asked for her dentures to attempt to eat, her oxygen saturations fell to 79. Had pt rest and take deep breaths, she improved to 82. deicion made to return pt to cPAP, she tires easily with minimal activity on hiogh flow. Will continue to monitor.
[2020-06-12] MEDS: dexAMETHasone sod phosphate 4 MG/ML VIAL IVPUSH (21:37)
[2020-06-13] VITALS (23 sets, daily range): BP systolic 99–132; BP diastolic 69–88; PULSE 108–127; RESP 14–38; TEMP 37.2–37.7; O2SAT 89–97; BMI 30.7
[2020-06-13] MEDS: LORazepam 2 MG/ML VIAL 0.5 MG IVPUSH ×3 (01:59→17:22)
[2020-06-13] MEDS: 0.9 % Sodium Chloride Flush 3 ML SYRINGE IVFLUSH ×3 (02:00→16:48)
[2020-06-13] MEDS: metroNIDAZOLE/NS 500 MG/100 ML PIGGYBACK 100 MG IV ×2 (05:33→12:58)
[2020-06-13 05:44] LABS: Hematocrit 31.3 % (37-47); Hemoglobin 10.5 g/dl (12.0-16.0); Mean Corpuscular HGB Conc 33.5 g/dl (31.0-35.0); Mean Corpuscular Hemoglobin 28.2 pg (27.0-33.0); Mean Corpuscular Volume 84.1 fL (80-98); Mean Platelet Volume 10.5 fL (9.4-12.3); Platelet Count 85 X10*3/uL (160-400); Red Blood Count 3.72 X10*6/uL (4.20-5.50); Red Cell Distribution Width 16.6 % (11.0-16.0); White Blood Count 13.8 X10*3/uL (4.8-10.8)
[2020-06-13 06:08] LABS: Base Excess VBG 0.1 mmol/L; HCO3 VBG 24 mmol/L; PCO2 VBG 37 mmhg; PO2 VBG 41 mmhg; pH VBG 7.43 (7.32-7.43)
[2020-06-13 06:09] LABS: Oxygen Saturation VBG 77.8 %
[2020-06-13 06:15] LABS: Band Neutrophils Percent 6 % (3-5); Lymphocytes Absolute Manual 0.1 X10*3/uL (0.6-4.8); Lymphocytes Percent Manual 1 % (20-40); Microcytosis 1+; Neutrophils Absolute Manual 13.7 X10*3/uL (2.2-7.9); Neutrophils Percent Manual 93 % (45-73); Platelet Estimate DECREASED (NORMAL); RBC Morphology NOTED; Toxic Granulation PRESENT
[2020-06-13 06:16] LABS: Acanthocytes 1+; Ovalocytes 1+; Platelet Morphology Comment NORM; Polychromasia 1+
[2020-06-13 06:42] LABS: Albumin Level 2.8 g/dL (3.5-5.0); Anion Gap 17 (12-20); Blood Urea Nitrogen 33 mg/dL (9-16); Calcium 7.2 mg/dL (8.4-10.2); Carbon Dioxide 24 mmol/L (22-29); Chloride 106 mmol/L (96-108); Creatinine Clr Calc Pharmacy 51.5; Estimated Glomerular Filt Rate 52; Glucose Random 125 mg/dL (60-115); Phosphorus 2.5 mg/dL (2.7-4.5); Potassium 3.6 mmol/l (3.3-5.1); Sodium 143 mmol/L (135-145)
[2020-06-13] MEDS: Enoxaparin Sodium 100 MG/ML SYRINGE SUBCUT (08:19)
[2020-06-13] MEDS: dexAMETHasone sod phosphate 4 MG/ML VIAL IVPUSH (08:19)
[2020-06-13] MEDS: oxyCODONE HCl Immed Release 5 MG TABLET PO (08:20)
[2020-06-13] MEDS: Albumin Human 25 % 100 ML IV ×2 (09:41→16:47)
[2020-06-13] MEDS: Potassium Phosphate 30 MMOL in 0.9 % Sodium Chloride 500 ML 85 MMOL IV (09:58)
[2020-06-13] MEDS: levoFLOXacin/D5W 500 MG/100 ML PIGGYBACK 100 MG IV (12:01)
[2020-06-13] MEDS: Levothyroxine Sodium 150 MCG TABLET PO (12:58)
--- NOTE | 2020-06-13 13:22 | PC.NURSE ---
Pt was asking for food /water- RN briefly took the BIPAP off for pt to sip small amount of water through straw- she desat immediately to high 70S low 80s after being off for a brief 10sec. BIPAP put back on, explained to pt cant eat right now due to oxygenation issue. Pt understands at this time . Pt currently 100% on bipap
--- NOTE | 2020-06-13 14:00 | P.PNCC_ITS ---
Subjective Subjective Date of Service: 06/13/20 Interval History: ICU day 3 for acute hypoxic respiratory failure secondary to COVID-19 ARDS and pulmonary embolism. 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 Initial troponin only mildly elevated and coming down, BNP normal, hemodynamically stable. Patient has been started on heparin drip. She also was noted to have colitis has been started Levaquin and metronidazole hospital course has been complicated by progressive hypoxic respiratory failure requiring initiation of noninvasive positive pressure ventilation support and transfer to intensive care unit. No events overnight. Physical Exam Vital Signs: Vital Signs: Last Vital Signs Temp 99.7 F 06/13/20 13:00 Pulse 115 H 06/13/20 13:00 Resp 18 06/13/20 13:00 BP 125/83 06/13/20 13:00 Pulse Ox 92 06/13/20 13:00 Body Mass Index 30.7 Const: General: no acute distress, alert, awake and anxious Eyes: Sclerae: sclerae normal Neck: Neck: Yes no lymphadenopathy, Yes trachea midline and Yes supple Resp: Effort & Inspection: normal respiratory effort and no respiratory distress Auscultation: crackles ( Diffuse bilateral) Cardio: Rate: tachycardic Rhythm: regular rhythm Heart sounds: no gallops, no murmurs and no rubs GI: Palpation (GI): Soft to palpation and Other GI palpation findings present ( Nontender) Auscultation: normal bowel sounds Extrem: General: No clubbing, No cyanosis and Yes edema ( 1+ bilateral) Objective Data Labs CBC & Chem 7: 06/13/20 04:48 06/13/20 04:48 Labs: Laboratory Results - last 24 hr 06/13/20 06/13/20 06/13/20 04:48 04:48 04:48 WBC 13.8 H RBC 3.72 L Hgb 10.5 L Hct 31.3 L MCV 84.1 MCH 28.2 MCHC 33.5 RDW 16.6 H Plt Count 85 L MPV 10.5 Immature Gran % (Auto) Cancelled Neut % (Auto) Cancelled Lymph % (Auto) Cancelled [place] % (Auto) Cancelled Eos % (Auto) Cancelled Baso % (Auto) Cancelled Lymph # (Auto) Cancelled [place] # (Auto) Cancelled Eos # (Auto) Cancelled Baso # (Auto) Cancelled Abs Immat Gran (auto) Cancelled Absolute Neuts (auto) Cancelled Absolute Nucleated RBC 0.000 Nucleated RBC % (auto) 0.0 Neutrophils % (Manual) 93 H Band Neutrophils % 6 H Lymphocytes % (Manual) 1 L Abs Neuts (Manual) 13.7 H Lymphocytes # (Manual) 0.1 L Toxic Granulation PRESENT Platelet Estimate DECREASED Plt Morphology Comment NORM RBC Morphology NOTED Polychromasia 1+ Microcytosis 1+ Ovalocytes 1+ Acanthocytes ([place]) 1+ VBG pH 7.43 VBG pCO2 37 VBG pO2 41 VBG HCO3 24 VBG O2 Saturation 77.8 VBG Base Excess 0.1 Sodium 143 Potassium 3.6 Chloride 106 Carbon Dioxide 24 Anion Gap 17 BUN 33 H Creatinine 1.03 Estim Creat Clear Calc 51.5 Estimated GFR 52 Random Glucose 125 H Calcium 7.2 L Phosphorus 2.5 L Magnesium 2.0 Albumin 2.8 L D Microbiology Microbiology Results: Microbiology 06/08/20 22:50 Blood - Venous Blood Culture - Preliminary No growth after 48 hours. 06/08/20 22:40 Blood - Venous Blood Culture - Preliminary No growth after 48 hours. Progress Note: A&P Assessment and plan (1) Acute respiratory distress syndrome (ARDS) due to COVID-19 virus: Status: Acute Assessment and Plan: Assessment: 80-year-old lady with underlying metastatic breast cancer on per 80 radiation for spine metastasis admitted with dyspnea secondary to saddle pulmonary embolism and COVID-19 ARDS with progressive hypoxia now requiring noninvasive positive pressure ventilatory support. Plan: Neuro: No acute issues. Cardiac: No acute issues. Pulmonary: Acute hypoxic respiratory failure secondary to combination of saddle pulmonary embolism and COVID-19 related ARDS. Now on noninvasive positive pressure ventilatory support. Continue to titrate off as tolerated. After family discussion decision has been reached that, if patient fails noninvasive positive pressure ventilation, not to intubate, but to change goals of care to comfort at that time. Renal: No acute issues. Endo: No acute issues. GI: if oral intake remains low, may require PPN support. ID: Underlying colitis, continue Levaquin and metronidazole total of 7 days (through 06/15). Underlying COVID-19 viral sepsis. Heme/Onc: Saddle pulmonary embolism in patient with metastatic breast cancer. Oncology service care appreciated. Continue on heparin drip. Lower extremity Dopplers positive for left small DVT does not require IVC filter at this time. Underlying metastatic breast cancer on anastrazole. Psych: No acute issues. Miscellaneous: No acute issues. Prophylaxis: Lovenox, ppi Diet: regular as tolerated Critical care time spent: 60 minutes (2) Acute respiratory failure with hypoxia: Status: Acute (3) Pulmonary embolism: Status: Acute (4) Colitis with rectal bleeding: Status: Acute Time Spent With Patient Total time spent with greater than 50% in coordination of care (as documented) at patient's floor/unit and/or counseling patient:: 0 Critical Care Time Critical Care Time (minutes): 60
--- NOTE | 2020-06-13 14:45 | PM.HEMONCPN ---
Medical Summary - Medical Summary Date of Service: 06/13/20 (She remains on bipap.) Medical Summary: CT abdomen/pelvis performed 04/22/2020- 1. Multiple liver masses worrisome for metastatic disease. 2. Left adrenal mass which could represent metastatic disease. 3. Multiple bone lesions highly suspicious for metastatic disease. CT chest performed 04/23/2020 revealed- 1. Scattered sclerotic metastases thoracic spine. Pathologic fracture, possibly chronic, upper sternal body. 2. Scattered bilateral nodularity, largest medial left upper lobe abutting the aortic arch measuring 1.7 x 1.2 x 1.9 cm. 3. No hilar or mediastinal adenopathy or ascites. Liver, biopsy: Moderate to poorly differentiated carcinoma consistent with metastasis from patient's known primary breast carcinoma. Estrogen Receptor: Positive (strong intensity; 100% of tumor cells) Progesterone Receptor: Positive (variable weak/moderate intensity; 15% of tumor cells) HER2: Positive (3+) Started Arimidex 1 mg p.o. daily in April 2020. Interval History Interval history: No significanat change has occurred. She desaturates with minimal activities. Review of Systems - Neurologic Reports system reviewed and no additional complaints, except as documented, Reports weakness, Denies focal weakness PMFSH Medical History: Medical History (Last Reviewed 06/09/20 @ 18:03 by Roly Rosa MD) Breast cancer Hx of radiation therapy Hypertension Hypothyroidism Liver cancer Metastatic breast cancer Metastatic disease Mitral valve vegetation Neuropathy Sciatica Family History: Family History (Last Reviewed 06/09/20 @ 18:03 by Roly Rosa MD) Mother Colon cancer Surgical History: Surgical History (Last Reviewed 06/09/20 @ 18:03 by Roly Rosa MD) H/O knee surgery H/O left mastectomy History of bilateral mastectomy History of hip surgery History of left knee replacement Onset Date: ~09/2011 History of lumpectomy of left breast Onset Date: ~02/2012 Smoking status: Unknown if ever smoked Home Medications and Allergies Current Medications: Current Medications Generic Name Dose Route Start Last Admin Trade Name Freq PRN Reason Stop Dose Admin Acetaminophen 650 mg 06/09/20 04:10 Acetaminophen 325 Mg Tablet PO Q6H PRN Pain, Mild (Pain Scale 1-3) Anastrozole 1 mg 06/09/20 09:00 06/13/20 08:20 Anastrozole 1 Mg Tablet PO Not Given DAILY [facility] Dexamethasone Sodium Phosphate 4 mg 06/12/20 22:00 06/13/20 08:19 Dexamethasone Sod Phosphate 4 Mg/Ml Vial IVPUSH 4 mg BID TRISHA Administration Docusate Sodium 100 mg 06/09/20 09:00 06/13/20 08:20 Docusate Sodium 100 Mg Capsule PO Not Given DAILY [facility] Enoxaparin Sodium 100 mg 06/11/20 20:00 06/13/20 08:19 Enoxaparin Sodium 100 Mg/Ml Syringe 1 mg/kg (100 mg) 100 mg SUBCUT Administration Q12H [facility] Metronidazole 500 mg in 100 mls @ 100 mls/hr 06/09/20 05:30 06/13/20 14:16 Flagyl IV Infused Q8H [facility] Infusion Levofloxacin 500 mg in 100 mls @ 100 mls/hr 06/10/20 12:00 06/13/20 13:12 Levaquin IV Infused Q24H [facility] Infusion Albumin Human 100 mls @ 100 mls/hr 06/13/20 09:15 06/13/20 10:50 Kedbumin 25 % IV 06/14/20 04:14 Infused Q6H [facility] Infusion Potassium Phosphate 30 mmol/ 510 mls @ 85 mls/hr 06/13/20 09:10 06/13/20 09:58 Sodium Chloride IV 06/13/20 15:09 85 mls/hr ONCE ONE Administration Levothyroxine Sodium 150 mcg 06/13/20 12:15 06/13/20 12:58 Levothyroxine Sodium 150 Mcg Tablet PO 150 mcg DAILY@0600 [facility] Administration Lorazepam 0.5 mg 06/10/20 15:48 06/13/20 08:18 Lorazepam 2 Mg/Ml Vial IVPUSH 0.5 mg Q4H PRN Administration Anxiety Ondansetron HCl 4 mg 06/09/20 04:10 06/10/20 09:25 Ondansetron Hcl 4 Mg/2 Ml Vial IVPUSH 4 mg Q8H PRN Administration Nausea and Vomiting Oxycodone HCl 5 mg 06/09/20 04:10 06/13/20 08:20 Oxycodone Hcl Immed Release 5 Mg Tablet PO 5 mg Q6H PRN Administration Back Pain Polyethylene Glycol 17 gm 06/09/20 09:00 06/13/20 08:20 Polyethylene Glycol 3350 17 Gm Powd.Pack PO Not Given BID [facility] Sodium Chloride 3 ml 06/09/20 08:00 06/13/20 08:19 0.9 % Sodium Chloride Flush 3 Ml Syringe IVFLUSH 3 ml QSHIFT [facility] Administration Home Medications Medication Instructions Recorded Confirmed Type cyclobenzaprine 1 tab PO BEDTIME PRN 04/22/20 06/09/20 History Allergies Allergy/AdvReac Type Severity Reaction Status Date / Time codeine [CODEINE] Allergy Intermediate VOMITING Verified 06/08/20 22:21 Benadryl Allergy Unknown Unknown Uncoded 04/22/20 19:05 codeine Allergy Unknown vomiting Uncoded 10/10/18 00:00 Codeine Sulfate AdvReac Mild Vomiting Uncoded 04/22/20 19:07 Exam Vital signs: Vital Signs Temp 96.6 F L 06/10/20 08:00 Pulse 126 H 06/10/20 08:00 Resp 28 H 06/10/20 09:59 BP 114/79 06/10/20 08:00 Pulse Ox 88 L 06/10/20 08:00 Intake & Output 06/09/20 06/10/20 06/10/20 18:59 06:59 18:59 Intake Total 1458.338 / 2319.570 861.232 / 2319.570 Output Total 200 / 200 Balance 1458.338 / 2119.570 661.232 / 2119.570 Urine Output (Average ml/kg/hr) 0.17 Intake: Intake, Oral Amount 600 / 960 360 / 960 Intake, IV Amount 858.338 / 1359.570 501.232 / 1359.570 levoFLOXacin/D5W 750 mg In 150 150 / 150 ml @ 100 mls/hr IV Q24H [facility] Rx# :[id number] metroNIDAZOLE/NS 500 mg In 100 200 / 400 200 / 400 ml @ 100 mls/hr IV Q8H [facility] Rx#: [id number] 0.9 % Sodium Chloride 1,000 ml 566.667 / 566.667 @ 100 mls/hr IVCONT .Q10H [facility] Rx#:[id number] Heparin Sodium,Porcine/1/2NS 25 91.671 / 242.903 151.232 / 242.903 ,000 unit In 250 ml @ Per Protocol IVCONT .Q0M [facility] Rx#: [id number] Output: Output, Urine Amount 200 / 200 Other: Lunch % Eaten 25% Dinner % Eaten 50% Number of Incontinent Voids 2 Urine purewick Urine Color Yellow Weight 94.2 kg 95.5 kg Weight 95.5 kg Body Mass Index 33.0 - Constitutional Present: no acute distress, mild distress - Routine HEENT Exam Head: Present: atraumatic - Routine Neck Exam Present: full ROM - Routine Respiratory Exam Present: decreased breath sounds - Routine Cardiovascular Exam Cardiovascular: Present: tachycardia - Routine Abdominal Exam Present: diminished bowel sounds - Routine Exam Patient deferred: external exam - Routine Extremities Exam Present: full ROM - Routine Back/Spine/Pelvis Exam Back/Spine: Present: full ROM - Routine Skin Exam Present: intact - Detailed Neurological Exam: Coma Scale Eye Opening: Spontaneous (4) - Routine Psychiatric Exam Present: normal thought process Data - Labs CBC & Chem 7: 06/13/20 04:48 06/13/20 04:48 Labs: 06/08/20 22:01 ECG 12 lead EKG Stat EKG Documentation DIRECTED 06/08/20 22:04 XR chest 1V Stat 06/08/20 22:15 0.9 % Sodium Chloride [Ns] 1,000 ml IVCONT 999 mls/hr 06/08/20 22:40 SARS-CoV2/FLU/RSV Stat 06/08/20 22:41 Complete Blood Count Man Dif Stat Lactic Acid Stat Partial Thromboplastin Time Stat Prothrombin Time INR Stat Troponin-I High Sensitivity Stat 06/08/20 22:50 Type and Screen Stat 06/08/20 22:57 0.9 % Sodium Chloride [Ns] 2,826 ml IVCONT 2,826 mls/hr Acetaminophen [Tylenol] 650 mg PO ONCE ONE 06/08/20 22:59 Vital Signs Q30M 06/08/20 23:02 [id number] Stat 06/08/20 23:26 BMP [Basic Metabolic Panel] Stat Lipase Stat 06/08/20 23:27 Liver Panel Stat 06/08/20 23:31 levoFLOXacin/D5W [Levaquin] 750 mg in 150 ml IV ONCE 06/08/20 23:46 Albuterol Sulfate [Ventolin] 2 puff INHALE ONCE ONE 06/09/20 00:00 CT abdomen pelvis w con Stat CT angio chest PE protocol Stat levoFLOXacin/D5W [Levaquin] 0 mg in 0 ml IV As directed 06/09/20 01:23 ~Lactic Acid-LAB USE ONLY Stat 06/09/20 01:43 Code Status Routine Transfer Order Routine 06/09/20 02:12 iohexoL 350 MG/ML [Omnipaque 350 MG/ML] 85 ml IV ONCE ONE 06/09/20 02:32 Heparin Sodium,Porcine 5,000 unit IVPUSH ONCE ONE 06/09/20 02:34 Heparin Sodium,Porcine 3,768 unit IVPUSH BOLUS PRN Heparin Sodium,Porcine 7,536 unit IVPUSH BOLUS PRN 06/09/20 02:38 Heparin Sodium,Porcine 3,768 unit IVPUSH BOLUS ONE 06/09/20 02:45 Heparin Sodium,Porcine/1/2NS 25,000 unit in 250 ml IVCONT Per Protocol units/kg/hr 06/09/20 04:10 0.9 % Sodium Chloride [Ns] 1,000 ml IVCONT 100 mls/hr Cyclobenzaprine HCl [Flexeril] 10 mg PO BEDTIME PRN Docusate Sodium [Colace] 100 mg PO DAILY PRN 06/09/20 04:10 Ambulate QSHIFT WHILE AWAKE IV insert/maintain Q8HR Intake and Output Q8HR Vital Signs Q4HR 06/09/20 04:50 Hemoglobin and Hematocrit Q12H Thyroid Stimulating Hormone Routine Troponin-I High Sensitivity Stat 06/09/20 05:45 Prothrombin Time INR DAILY 06/09/20 06:30 Pantoprazole Sodium [Protonix] 40 mg IVPUSH BID@0630,1630 06/09/20 09:00 dexAMETHasone [Decadron] 4 mg PO BID 06/09/20 09:27 PTT Heparin Drip Stat 06/09/20 Breakfast NPO Diet 06/09/20 11:00 CA echo transthoracic complete Routine 06/09/20 11:20 B Type Natriuretic Peptide Routine Complete Blood Count Man Dif Routine PTT Heparin Drip Stat Troponin-I High Sensitivity Routine 06/09/20 13:14 Hemoglobin and Hematocrit Q12H PTT Heparin Drip Stat 06/09/20 20:50 PTT Heparin Drip Stat 06/09/20 23:00 levoFLOXacin/D5W [Levaquin] 750 mg in 150 ml IV Q24H 06/10/20 03:15 PTT Heparin Drip Stat 06/10/20 06:50 Basic Metabolic Panel Routine Complete Blood Count Man Dif Routine 06/10/20 11:28 PTT Heparin Drip Stat LORazepam [Ativan] 0.5 mg IVPUSH Q6H PRN 06/10/20 11:56 Morphine Sulfate 2 mg IVPUSH Q3H PRN 06/10/20 15:47 0.9 % Sodium Chloride [Ns] 1,000 ml IVCONT 100 mls/hr 06/10/20 16:46 PTT Heparin Drip Stat 06/10/20 17:28 Heparin Sodium,Porcine 3,820 unit IVPUSH BOLUS PRN Heparin Sodium,Porcine 7,640 unit IVPUSH BOLUS PRN 06/10/20 23:48 PTT Heparin Drip Stat 06/11/20 XR chest 1V Stat US venous duplex LE BI Routine 06/11/20 02:05 PTT Heparin Drip Stat 06/11/20 04:49 Furosemide [Lasix] 40 mg IVPUSH STAT STA 06/11/20 04:55 Furosemide [Lasix] 40 mg .ROUTE .[facility] ONE 06/11/20 05:47 Basic Metabolic Panel Routine Complete Blood Count Man Dif Routine 06/11/20 09:03 Transfer Order Routine 06/11/20 10:00 Albumin Human 25 % [Kedbumin 25 %] 100 ml IV Q6H Container,Empty 0 ml Furosemide [Lasix] 500 mg IVCONT 5 mg/hr 06/11/20 10:24 PTT Heparin Drip Stat 06/11/20 12:20 Heparin Sodium,Porcine 5,000 unit .ROUTE .[facility] ONE 06/12/20 05:44 Complete Blood Count Man Dif Routine Comprehensive Met. Panel DAILY@0600 Magnesium DAILY Phosphorus DAILY Venous Blood Gas DAILY 06/12/20 07:30 Potassium Chloride/H20 10 meq in 100 ml IV Q1H 06/13/20 04:48 Albumin Level Routine Basic Metabolic Panel DAILY@0600 Complete Blood Count Man Dif Routine Magnesium DAILY Phosphorus DAILY Venous Blood Gas DAILY Laboratory Last Values WBC 13.8 X10*3/uL (4.8-10.8) H 06/13/20 04:48 RBC 3.72 X10*6/uL (4.20-5.50) L 06/13/20 04:48 Hgb 10.5 g/dl (12.0-16.0) L 06/13/20 04:48 Hct 31.3 % (37-47) L 06/13/20 04:48 MCV 84.1 fL (80-98) 06/13/20 04:48 MCH 28.2 pg (27.0-33.0) 06/13/20 04:48 MCHC 33.5 g/dl (31.0-35.0) 06/13/20 04:48 RDW 16.6 % (11.0-16.0) H 06/13/20 04:48 Plt Count 85 X10*3/uL (160-400) L 06/13/20 04:48 MPV 10.5 fL (9.4-12.3) 06/13/20 04:48 Immature Gran % (Auto) Cancelled 06/13/20 04:48 Neut % (Auto) Cancelled 06/13/20 04:48 Lymph % (Auto) Cancelled 06/13/20 04:48 Branch % (Auto) Cancelled 06/13/20 04:48 Eos % (Auto) Cancelled 06/13/20 04:48 Baso % (Auto) Cancelled 06/13/20 04:48 Lymph # (Auto) Cancelled 06/13/20 04:48 Branch # (Auto) Cancelled 06/13/20 04:48 Eos # (Auto) Cancelled 06/13/20 04:48 Baso # (Auto) Cancelled 06/13/20 04:48 Abs Immat Gran (auto) Cancelled 06/13/20 04:48 Absolute Neuts (auto) Cancelled 06/13/20 04:48 Absolute Nucleated RBC 0.000 X10*3/uL (0.0-0.012) 06/13/20 04:48 Nucleated RBC % (auto) 0.0 /100WBC (0.0-0.2) 06/13/20 04:48 Neutrophils % (Manual) 93 % (45-73) H 06/13/20 04:48 Band Neutrophils % 6 % (3-5) H 06/13/20 04:48 Lymphocytes % (Manual) 1 % (20-40) L 06/13/20 04:48 Monocytes % (Manual) 5 % (2-11) 06/12/20 05:44 Metamyelocytes % 3 % 06/12/20 05:44 Abs Neuts (Manual) 13.7 X10*3/uL (2.2-7.9) H 06/13/20 04:48 Lymphocytes # (Manual) 0.1 X10*3/uL (0.6-4.8) L 06/13/20 04:48 Monocytes # (Manual) 0.6 X10*3/uL (0.0-1.2) 06/12/20 05:44 Metamyelocytes # 0.3 X10*3/uL 06/12/20 05:44 Nucleated RBCs 1 /100WBC (0-0) H 06/08/20 22:41 Toxic Granulation PRESENT 06/13/20 04:48 Toxic Vacuolation PRESENT 06/09/20 11:20 Platelet Estimate DECREASED (NORMAL) 06/13/20 04:48 Plt Morphology Comment NORM 06/13/20 04:48 RBC Morphology NOTED 06/13/20 04:48 Polychromasia 1+ 06/13/20 04:48 Microcytosis 1+ 06/13/20 04:48 Ovalocytes 1+ 06/13/20 04:48 [place] Cells 2+ 06/11/20 05:47 Acanthocytes (Spur) 1+ 06/13/20 04:48 Smear Path Review SEE NOTE 06/08/20 22:41 PT 16.0 SEC (10.8-13.0) H 06/09/20 05:45 INR 1.3 (0.9-1.1) H 06/09/20 05:45 APTT 28.0 SEC (24.1-38.0) 06/08/20 22:41 PTT (Heparin Protocol) 41.5 SEC (53-77.9) L D 06/11/20 10:24 VBG pH 7.43 (7.32-7.43) 06/13/20 04:48 VBG pCO2 37 mmhg 06/13/20 04:48 VBG pO2 41 mmhg 06/13/20 04:48 VBG HCO3 24 mmol/L 06/13/20 04:48 VBG O2 Saturation 77.8 % 06/13/20 04:48 VBG Base Excess 0.1 mmol/L 06/13/20 04:48 Sodium 143 mmol/L (135-145) 06/13/20 04:48 Potassium 3.6 mmol/l (3.3-5.1) 06/13/20 04:48 Chloride 106 mmol/L (96-108) 06/13/20 04:48 Carbon Dioxide 24 mmol/L (22-29) 06/13/20 04:48 Anion Gap 17 (12-20) 06/13/20 04:48 BUN 33 mg/dL (9-16) H 06/13/20 04:48 Creatinine 1.03 mg/dL (0.5-1.4) 06/13/20 04:48 Estim Creat Clear Calc 51.5 06/13/20 04:48 Estimated GFR 52 06/13/20 04:48 Random Glucose 125 mg/dL (60-115) H 06/13/20 04:48 Lactic Acid 2.1 mmol/L (0.5-2.0) H* 06/08/20 22:41 Lactic Acid Fup @ 2Hr 1.5 mmol/L (0.5-2.0) 06/09/20 01:23 Calcium 7.2 mg/dL (8.4-10.2) L 06/13/20 04:48 Phosphorus 2.5 mg/dL (2.7-4.5) L 06/13/20 04:48 Magnesium 2.0 mg/dL (1.6-2.6) 06/13/20 04:48 Total Bilirubin 0.7 mg/dL (0.0-1.0) 06/12/20 05:44 Direct Bilirubin 0.3 mg/dL (0.0-0.5) 06/09/20 00:16 AST 35 U/L (5-31) H 06/12/20 05:44 ALT 18 U/L (0-31) 06/12/20 05:44 Alkaline Phosphatase 71 U/L (39-117) 06/12/20 05:44 Troponin I High Sens 26.1 ng/L (<3.5-17.0) H 06/09/20 11:20 B-Natriuretic Peptide 64 pg/mL (<100) 06/09/20 11:20 Total Protein 5.4 g/dL (6.5-8.0) L D 06/12/20 05:44 Albumin 2.8 g/dL (3.5-5.0) L D 06/13/20 04:48 Lipase 10 U/L (8-78) 06/09/20 00:16 TSH 1.07 uIU/mL (0.32-4.0) 06/09/20 04:50 Stool Occult Blood POS (NEG) 06/08/20 23:02 Coronavirus (PCR) POSITIVE (Negative) A 06/08/20 22:40 Influenza Type A (PCR) NEGATIVE (Negative) 06/08/20 22:40 Influenza Type B (PCR) NEGATIVE (Negative) 06/08/20 22:40 RSV RNA Qual (PCR) NEGATIVE (Negative) 06/08/20 22:40 Blood Type O Positive 06/08/20 22:50 Antibody Screen NEGATIVE 06/08/20 22:50 Progress Note: A/P (1) Acute respiratory distress syndrome (ARDS) due to COVID-19 virus Status: Acute (2) Acute respiratory failure with hypoxia Status: Acute (3) Pulmonary embolism Start date: 06/11/20 (She is in the ICU. Current treatment is optimal. Will Follow. ) Status: Acute (4) Colitis with rectal bleeding Status: Acute - Time Spent With Patient Total time spent is greater than 50% in coordination of care (as documented) at patient's floor/unit and/or counseling patient: 15 - 24 minutes
[2020-06-13] MEDS: fentaNYL citrate/PF 100 MCG/2 ML VIAL 50 MCG IVPUSH (15:37)
--- NOTE | 2020-06-13 17:20 | PC.NURSE ---
this rn into assess and medicate pt. pt appears to be satting 85-87% on bipap w 02 100%, pt rr 38-42/min. pt able to write on paper feeling anxiety . provider aware, pt medicated w ativan ivp as ordered. resp therapist at bedside, attempted repositioning, attempted to try highflow nc w nonrebreather, pt immediately desatting to spo2 low 70s. pt placed back on bipap, unable to sustain spo02 above 83% following attempt for highflow. provider aware, in contact w pt family to discuss plan of care. decision made by family to put pt on comfort measures. pt medicated per emar, moved to nc at 3l min 02. fentanyl bolus given, drip started per orders.
--- NOTE | 2020-06-13 17:34 | PM.CCN ---
Critical Care Event Note Summary Code activated: No Narrative: Patient with progressive hypoxemia, now refractory to noninvasive positive pressure ventilatory support. Goals of care re-discussed with the family and changed to comfort measures only. Critical Care Time (minutes): 0
[2020-06-13] MEDS: fentaNYL citrate/NS 1,000 MCG/100 ML PLAST..BAG 2.5 MCG IVCONT (18:12)
--- NOTE | 2020-06-13 19:00 | PM.DDS ---
Discharge Sum: Prov Provider Primary care physician: Unknown Physician Consults: 06/09/20 04:10 Consult to Gastroenterology Routine Consulting Provider: Walter Reyes Reason for consultation: gi bleed Has provider been notified: No 06/09/20 04:28 Consult to Hematology / Oncology Routine Consulting Provider: Yasmin Melissa Reason for consultation: metastatic cancer Has provider been notified: No 06/09/20 10:12 Consult to Critical Care Routine Consulting Provider: Roly Rosa Reason for consultation: saddle pulmonary embolism Has provider been notified: Yes Discharge Sum: Diag Contributing Factors (1) Acute respiratory distress syndrome (ARDS) due to COVID-19 virus: (2) Acute respiratory failure with hypoxia: (3) Pulmonary embolism: (4) Colitis with rectal bleeding: Discharge Sum: Summary Date and Time Date of admission: 06/09/20 01:47 Date of : 06/13/20 Time of : 18:20 Summary Details: 80-year-old lady with underlying metastatic breast cancer on palliative radiotherapy for spine metastasis admitted on 06/09/2020 with dyspnea secondary to newly diagnosed saddle pulmonary embolism and COVID-19. Initial troponin only mildly elevated and coming down, BNP normal, hemodynamically stable, admitted to the general medical berg. She has been started on heparin drip. She also was noted to have colitis and has been started on Levaquin and metronidazole. Patient has been evaluated by gastroenterology, oncology, and critical care services. Her further hospital course has been complicated by progressive hypoxic respiratory failure requiring initiation of noninvasive positive pressure ventilation support with CPAP and transfer to intensive care unit on 06/11. On 06/11 as she required essentially maximum support with the non-invasive ventilation care plan discussion held with patient's family and overall poor prognosis, particularly if patient requires ventilatory support, reviewed. Decision has been reached to continue with noninvasive positive pressure ventilation support only and not to proceed to intubation. If patient would fail noninvasive positive pressure ventilation support, decision has been reached to change patient's goals of care to comfort at that time. Unfortunately, hypoxemia continued to worsen and on 06/13 she became refractory to noninvasive positive pressure ventilatory support. Goals of care re-discussed with the family and changed to comfort measures only. Patient passed peacefully on 06/13/2020 at 18:20, family notified. Discharge diagnoses: 1. Acute hypoxic respiratory failure secondary to COVID-19 2. COVID-19 ARDS 3. Viral sepsis with end organ failure present on admission. 4. Pulmonary embolism. 5. Metastatic breast cancer. 6. Infectious colitis with rectal bleeding Additional Data Attending physician: Roly Rosa MD
--- NOTE | 2020-06-13 19:05 | P.EN_ITS ---
Event Note Date of Service: 06/13/20 Event Note: Notified by nurse that patient in comfort measures status has pass ed. On my exam- no response to verbal or physical stimuli, no spontaneous respiration, absent heart sounds, pupils are fixed and dilated, no corneal or gag reflex. Official time of 1819. Attending Dr Rosa notified. Next of Kin Daughter Elena [phone] notified via phone. Not a [employer] case. Nursing notified organ donation.
--- NOTE | 2020-06-13 19:05 | PM.EVENT ---
Event Note Date of Service: 06/13/20 Event Note: Notified by nurse that patient in comfort measures status has passed. On my exam- no response to verbal or physical stimuli, no spontaneous respiration, absent heart sounds, pupils are fixed and dilated, no corneal or gag reflex. Official time of 182. Attending Dr Rosa notified. Next of Kin Daughter Elena [phone] notified via phone. Not a [employer] case. Nursing notified organ donation.
== END 2020-06-13 19:00 | disposition expired | DRG 871 ==
LOC: HO.ED 22:31 → HO.IMC 06-09 02:49 → HO.ICU 06-11 09:07
PROVIDERS: Hospitalist; Admitting Provider Internal Medicine; Emergency Provider Emergency Medicine; Visit Provider Internal Medicine Pulmonary Disease
DX: A41.89 Other specified sepsis (principal); U07.1 COVID-19; I26.92 Saddle embolus of pulmonary artery without acute cor pulmonale; J12.89 Other viral pneumonia; J80 Acute respiratory distress syndrome; C78.7 Secondary malignant neoplasm of liver and intrahepatic bile duct; C79.51 Secondary malignant neoplasm of bone; M84.58XA Pathological fracture in neoplastic disease, other specified site, initial encounter for fracture; K52.9 Noninfective gastroenteritis and colitis, unspecified; C50.919 Malignant neoplasm of unspecified site of unspecified female breast; Z17.0 Estrogen receptor positive status [ER+]; E03.9 Hypothyroidism, unspecified; Z96.652 Presence of left artificial knee joint; Z88.6 Allergy status to analgesic agent; Z79.811 Long term (current) use of aromatase inhibitors; Z79.899 Other long term (current) drug therapy
CPT/HCPCS: 0241U; 36415; 71045; 71275; 74177; 80048; 80053; 80076; 82040; 82272; 82803; 83605; 83690; 83735; 83880; 84100; 84443; 84484; 85007; 85014; 85018; 85025; 85027; 85060; 85610; 85730; 86850; 86900; 86901; 87040; 93005; 93306; 93970; 94640; 94660; 94664; 94799; 96361; 96374; 99285; 99291; C1758; J1100; J1650; J1940; J1956; J2060; J2270; J2405; J3010; J8540; P9047; Q9967